=== PATIENT | female | born 1940 | race Caucasian/White ===

== ENCOUNTER 2020-03-25 11:18 | Outpatient (REF) | payer OTHER, SELFPAY ==
[2020-03-25 20:41] LABS: Abs Immature Grans 0.04 k/cumm (0.0-0.09); Absolute Lymphocyte Count 2.37 k/cumm (1.2-3.4); Basophils % 0.2; Eosinophils % 0.6; HCT 43.2 % (36.0-46.0); HGB 14.4 g/dL (12.0-15.5); Immature Grans % 0.3 %; Lymphocytes % 19.1; Mean Corp. HGB Concentration 33.3 g/dL (32.0-36.0); Mean Corpuscular Hemoglobin 29.6 pg (27.0-33.0); Mean Corpuscular Volume 88.9 fL (80-95); Mean Platelet Volume 10.3 fL (8.0-11.0); Monocytes % 9.8; Platelet Count 255 x1000/uL (130-400); RBC 4.86 m/cumm (4.00-5.20); RBC Distribution Width 14.4 % (11.7-14.6); White Blood Cell Count 12.41 k/cumm (4.4-10.8)
[2020-03-25 20:42] LABS: Absolute Basophil Count 0.02 k/cumm (0.0-0.2); Absolute Eosinophil Count 0.07 k/cumm (0.0-0.7); Absolute Monocyte Count 1.22 k/cumm (0.11-0.7); Absolute Neutrophil Count 8.69 k/cumm (1.2-6.7)
== END 2020-03-25 11:38 ==
LOC: NCHCN 11:18
PROVIDERS: PCP Internal Medicine; Visit Provider Nurse Practitioner Community Health
DX: K57.92 Diverticulitis of intestine, part unspecified, without perforation or abscess without bleeding (principal)
CPT/HCPCS: 85025

== ENCOUNTER 2020-04-24 09:27 | Outpatient (REF) | payer OTHER, SELFPAY ==
[2020-04-24 21:55] LABS: Anion Gap 7.8 mmol/L (3-11); BUN 20 mg/dL (7-18); CO2 30.2 mmol/L (21.0-32.0); CREATININE 0.75 mg/dL (0.55-1.02); Calcium 9.1 mg/dL (8.5-10.1); Calculated LDL 98 mg/dL (<100); Chloride 104 mmol/L (98-107); Cholesterol 184 mg/dL (<200); Glucose 91 mg/dL (74-106); HDL Cholesterol 67 mg/dL (40-60); Potassium 4.3 mmol/L (3.5-5.1); Sodium 142 mmol/L (136-145); Triglyceride 96 mg/dL (<150)
[2020-04-24 22:01] LABS: Hemoglobin A1C 6.2 % (3.8-5.6)
== END 2020-04-24 09:47 ==
LOC: NCHCN 09:27
PROVIDERS: PCP Internal Medicine; Visit Provider Internal Medicine
DX: I10 Essential (primary) hypertension (principal); E78.00 Pure hypercholesterolemia, unspecified
CPT/HCPCS: 80048; 80061; 83036

== ENCOUNTER 2020-05-01 12:32 | Outpatient (REF) | payer OTHER, SELFPAY | END 2020-05-01 12:52 | LOC: NCHCN 12:32 | PROVIDERS: PCP Internal Medicine; Visit Provider Internal Medicine | DX: M54.5 Low back pain (principal) | CPT/HCPCS: 87077; 87086; 87186 ==

== ENCOUNTER 2021-07-05 21:07 | Outpatient (REF) | payer OTHER, SELFPAY ==
[2021-07-05 22:08] LABS: Abs Immature Grans 0.03 10^3/uL (0.0-0.06); Absolute Basophil Count 0.09 10^3/uL (0.0-0.2); Absolute Eosinophil Count 0.17 10^3/uL (0.0-0.7); Absolute Lymphocyte Count 2.33 10^3/uL (1.2-3.4); Absolute Monocyte Count 0.64 10^3/uL (0.1-0.8); Absolute Neutrophil Count 4.79 10^3/uL (1.2-6.7); Basophils % 1.1; Eosinophils % 2.1; HCT 45.9 % (36.0-46.0); HGB 14.6 g/dL (11.2-15.7); Immature Grans % 0.4; Lymphocytes % 28.9; MCH 27.9 pg (27.0-33.0); MCHC 31.8 % (32.0-36.0); MCV 87.6 fL (80-95); MPV 10.5 fL (8.0-11.0); Neutrophils % 59.5; Nucleated RBC 0 %; Platelet Count 291 10^3/uL (130-400); RBC 5.24 10^6/uL (3.93-5.22); RDW 15.9 % (11.7-14.6); RDW-SD 51.2 fL; WBC 8.05 10^3/uL (4.4-10.8)
[2021-07-05 22:15] LABS: ESR 29 mm/hr (0-30)
[2021-07-05 22:24] LABS: ALT 17 U/L (14-59); AST 16 U/L (15-37); Albumin 3.5 g/dL (3.4-5.0); Alkaline Phosphatase 95 U/L (46-116); Anion Gap 9.4 mmol/L (3-11); BUN 14 mg/dL (7-18); Bilirubin, Total 0.3 mg/dL (0.2-1.0); C-Reactive Protein 0.22 mg/dL (0.0-0.3); CO2 25.6 mmol/L (21.0-32.0); CREATININE 0.7 mg/dL (0.55-1.02); Chloride 108 mmol/L (98-107); Creatine Kinase 36 U/L (26-192); Glucose 92 mg/dL (74-106); Potassium 4.2 mmol/L (3.5-5.1); Sodium 143 mmol/L (136-145); TSH (W/Ref FT4) 1.39 uIU/mL (0.36-3.74)
[2021-07-07 11:38] LABS: Lyme Ab w Rflx to Lyme Confirm Negative (Negative)
== END 2021-07-05 21:08 | disposition home or self-care (01) ==
LOC: NCHCN 21:07
PROVIDERS: PCP Internal Medicine; Visit Provider Internal Medicine
DX: M79.18 Myalgia, other site (principal)
CPT/HCPCS: 80053; 82550; 85652; 84443; 85025; 86140; 86618

== ENCOUNTER 2021-07-07 17:21 | Emergency (ER) | payer OTHER, SELFPAY ==
[2021-07-07] VITALS (31 sets, daily range): BP systolic 133–213; BP diastolic 67–99; PULSE 58–77; RESP 15–24; TEMP 36.6; O2SAT 90–98
--- NOTE | 2021-07-07 17:15 | RT.EKG_ITS ---
APPROVED REPORT Exam: Resting ECG Reason for Exam: chest pain Patient Location: E HR:71 bpm ECG Measurements Heart Rate 71 AXIS MS 180 P 62 QRSd 95 QRS -38 QT 409 T 15 QTc 445 Conclusion Sinus rhythm. Probable left ventricular hypertrophy No ST elevation
[2021-07-07] MEDS: Aspirin 81 MG CHEW 324 MG CH (17:42)
[2021-07-07] MEDS: Normal Saline 1,000 ML 125 ML IV (17:43)
[2021-07-07 17:44] LABS: Abs Immature Grans 0.02 10^3/uL (0.0-0.06); Absolute Basophil Count 0.07 10^3/uL (0.0-0.2); Absolute Eosinophil Count 0.26 10^3/uL (0.0-0.7); Absolute Lymphocyte Count 3.34 10^3/uL (1.2-3.4); Absolute Monocyte Count 0.66 10^3/uL (0.1-0.8); Absolute Neutrophil Count 3.88 10^3/uL (1.2-6.7); Basophils % 0.9; Eosinophils % 3.2; HCT 41.6 % (36.0-46.0); HGB 13.8 g/dL (11.2-15.7); Immature Grans % 0.2; Lymphocytes % 40.6; MCH 28.5 pg (27.0-33.0); MCHC 33.2 % (32.0-36.0); MPV 9.6 fL (8.0-11.0); Neutrophils % 47.1; Nucleated RBC 0 %; Platelet Count 293 10^3/uL (130-400); RBC 4.84 10^6/uL (3.93-5.22); RDW 15.6 % (11.7-14.6); RDW-SD 48.6 fL; WBC 8.23 10^3/uL (4.4-10.8)
[2021-07-07 17:51] LABS: Magnesium 2.3 mg/dL (1.8-2.4)
[2021-07-07 17:59] LABS: INR 0.9 (0.9-1.1); PTT Activated 24.6 sec (21.0-27.5); Prothrombin Time 9.5 sec (9.3-11.0)
[2021-07-07 18:04] LABS: ALT 17 U/L (14-59); AST 13 U/L (15-37); Albumin 3.4 g/dL (3.4-5.0); Alkaline Phosphatase 103 U/L (46-116); Anion Gap 9.6 mmol/L (3-11); BUN 17 mg/dL (7-18); Bilirubin, Total 0.3 mg/dL (0.2-1.0); CO2 26.4 mmol/L (21.0-32.0); CREATININE 0.8 mg/dL (0.55-1.02); Calcium 8.7 mg/dL (8.5-10.1); Chloride 104 mmol/L (98-107); Glucose 159 mg/dL (74-106); NT-proBNP 132 pg/mL (<300); Potassium 3.5 mmol/L (3.5-5.1); Sodium 140 mmol/L (136-145)
[2021-07-07 18:06] LABS: Troponin I < 0.05 ng/mL (<0.06)
--- NOTE | 2021-07-07 18:40 | DI.RAD_ITS ---
Exam(s) XR PORTABLE CHEST AP EXAM: XR PORTABLE CHEST AP CLINICAL HISTORY: chest pain. TECHNIQUE: 2D digital imaging was performed. COMPARISON: No exams were available for comparison FINDINGS: Heart size is normal. The mediastinum is not widened. Exaggerated interstitial, more so in the right lung. No Shanon B lines. No pleural effusions. No p neumothorax. No fractures evident. IMPRESSION: Increased interstitial markings throughout the right lung. No pleural effusions. DATA REPOSITORY: RADIATION DOSE DELIVERED: All CT scans at this facility use at least one of these dose optimization techniques: automated exposure control; mA and/or kV adjustment per patient size (includes targeted e xams where dose is matched to clinical indication); or iterative reconstruction.
[2021-07-07 18:44] LABS: D-Dimer 2290 ng/mlFEU (<500)
--- NOTE | 2021-07-07 18:45 | DI.CT_ITS ---
Exam(s) CT CHEST PE CTA EXAM: CT CHEST PE CTA CLINICAL HISTORY: R sided CP with elevated dimer. TECHNIQUE: Imaging Protocol: CT angiography of the chest was performed using pulmonary embolus radha col. Multi planar reconstructions were performed. CONTRAST MATERIAL: Intravenous: Omnipaque 350 Contrast volume: 100 cc COMPARISON: CR,XR XR PORTABLE CHEST AP from 07/07/2021 CR,XR XR PORTABLE CHEST AP from 07/07/2021 FINDINGS: CHEST: PULMONARY ARTERIES: There are no intraluminal filling defects to suggest acute pulmonary emboli. LUNGS: There is prominence of interstitial markings bilaterally also some scar-like density in the le ft lower lobe. Mild ground-glass infiltrate in the right lower lobe. No pleural effusions. There i s no pneumothorax. There are no obvious focal abnormalities evident in the trachea and mainstem bron chi.. There are no pleural effusions. MEDIASTINUM: There is no hilar nor mediastinal adenopathy. Visualized thyroid unremarkable. CARDIAC: Heart size is upper normal. There is no pericardial effusion.Caliber of the thoracic aorta is within normal limits. Aberrant right subclavian arteries noted. However, there is significant ath erosclerotic disease in this vessel medially by a in the esophagus. There is no significant shift of the interventricular septum. PARTIALLY VISUALIZED UPPERMOST ABDOMEN: Moderate-large hiatal hernia. Right adrenal gland unremarkab le. Slight thickening of the genu of the left adrenal gland noted. OSSEOUS: No significant osseous lesions.Indentation of the inferior endplate of what appears to be T1 0 noted, age indeterminate.. IMPRESSION: 1. No evidence of acute pulmonary emboli. No evidence of pulmonary infarction.No pleural effusions. 2. Increased interstitial markings in the lung [place] bilaterally. Mild ground-glass infiltrate in t he right lower lobe. Possibly an element of CHF although heart size is not appear obviously prominen t.. Close follow-up recommended. 3. Aberrant right subclavian artery noted. However, this artery is significant involving the atheros clerotic involvement behind esophagus what appears to be significant stenosis in vessel as it crosses the midline to attain the right side. RADIATION DOSE DELIVERED: 325.39mGy.cm Total DLP DATA REPOSITORY: All CT scans at this facility are submitted to the National Radiology Data Registry (NRDR) Dose Index Registry (DIR) with the [employer] (ACR). RADIATION OPTIMIZATION: All CT scans at this facility use at least one of these dose optimization te chniques: automated exposure control; mA and/or kV adjustment per patient size (includes targeted exa ms where dose is matched to clinical indication); or iterative reconstruction.
--- NOTE | 2021-07-07 18:58 | DI.VRAD_ITS ---
PROCEDURE INFORMATION: Exam: XR Chest Exam date and time: 07/07/2021 5:36 PM Age: 80 years old Clinical indication: Chest wall pain TECHNIQUE: Imaging protocol: XR of the chest. Views: 1 view. COMPARISON: No relevant prior studies available. FINDINGS: Lungs: Subtle interstitial prominence. Pleural spaces: Unremarkable. No pleural effusion. No pneumothorax. Heart/Mediastinum: Unremarkable. No cardiomegaly. Bones/joints: Unremarkable. IMPRESSION: Subtle interstitial prominence may be artifactual, but raises the question of edema Dictated and Authenticated by: Christopher Dickerson MD. Ordering:DEJON Gómez MD
--- NOTE | 2021-07-07 20:15 | RT.EKG_ITS ---
APPROVED REPORT Exam: Resting ECG Reason for Exam: chest pain Patient Location: E HR:60 bpm ECG Measurements Heart Rate 60 AXIS ME 190 P 65 QRSd 92 QRS -39 QT 448 T -54 QTc 448 Conclusion Sinus rhythm...normal P axis, V-rate 60- 99 Probable LVH with secondary repol abnrm...multiple LVH criteria, t wave inversions simiar to previous
--- NOTE | 2021-07-07 20:21 | ED.GENADUL_ITS ---
Discharge Plan Disposition Patient Disposition: HOME Condition: Stable Discharge Details Clinical Impression: Chest pressure Primary Care Provider: Radha Perez ED Provider: Rico Garcia Home Meds and New Rx's Prescriptions: Continued simvastatin 10 mg Tablet 10 mg PO QHS RF: 0 valacyclovir [Valtrex] 500 mg Tablet 500 mg PO BID PRNRF: 0 aspirin 81 mg Tablet,Delayed Release (Dr/Ec) 81 mg PO DAILY RF: 0 fluticasone propionate 50 mcg/actuation [place],Suspension 1 spray INTRANASAL BID RF: 0 rosuvastatin 40 mg Tablet 40 mg PO DAILY RF: 0 Discharge Instructions Instructions: Chest Pain (ED) Additional Instructions: At this time your laboratory values and CT imaging do not reveal any obvious emergent process. Admission was offered but declined. I recommend going home and taking [id number] Tylenol, cool and/or warm compresses every 2 hours for 20 minutes. Please contact your primary care provider tomorrow to discuss your ER visit and need for outpatient reevaluation. You stated to me that you are a DNR-DNI but if you would like to pursue your discomfort further you may need to be evaluated by a specialist, have outpatient stress test and/or echocardiogram, etc. Discharge Data Discharge Date/Time-TO BE ENTERED AT DEPARTURE: 07/07/21 21:51 Medical Decision Making This is an 80-year-old female past medical history of VA x2, hyperlipidemia, presenting to the ER complaining of right-sided chest pressure that began around 2 PM today while at rest. Her reports that she has had bilateral shoulder, back, pain intermittently over the past several months has been seen in multiple ERs. Clinically she appears well, nontoxic, initial blood pressure is 213/96 but she denies any headache, visual changes, history of hypertension. She does have some right-sided chest wall reproducible discomfort. Unfortunately she is a rather vague and poor historian, initially told me she had no pressure currently and then later told me that it has never gone away. Differential is wide, includes but not excluded to ACS, PE, costochondritis, pneumonia, dissection, Covid, etc. She took a single aspirin today, will give additional 3 baby aspirin and after initial EKG is performed will trial nitro to see if that makes any difference. Will initiate a cardiac rule out work-up including D-dimer. Prior to administration of any nitro her repeat blood pressure was 175/88. Patient was then given a nitro and initially reported to her RN that it seemed to help her symptoms, told me it made no change whatsoever. Subsequently given 2 additional nitro, she reports no change in her symptoms. Blood pressure now 157/84. Initial laboratory values reveal a D-dimer of 2290, otherwise unremarkable, troponin less than 0.05 and given she had initially told me she had some shortness of breath or difficulty with full inspiration, BNP was obtained and 132. Chest x-ray was already obtained, given the elevated D-dimer and will obtain a CTA. Patient is currently resting comfortably, tells me that she feels better. Chest CTA reveals mild pulmonary edema otherwise unremarkable for emergent process. Awaiting repeat troponin and EKG. Given her age and comorbidities I discussed admitting her to our facility for further cardiac observation. Given her vague presentation, it is truly difficult to assess whether or not the nitro had any true change in her chest pressure. Patient tells me that she is a DNR-DNI, would prefer to be discharged home if her repeat troponin and EKG are unremarkable. She plans to contact her primary care provider tomorrow to discuss her ongoing symptoms and need for outpatient reevaluation. We did also discuss her elevated blood pressure here in the ER and the need to monitor this carefully as she may require hypertension medications. Repeat EKG performed at 2032, please see official report by Dr. Gaffney. Sinus rhythm, ventricular rate of 60, LVH, no STEMI. No dynamic changes when compared to initial EKG Repeat troponin unchanged, remains less than 0.05. Patient reports that she is asymptomatic. Repeat blood pressure 133/67. We once again discussed admission but she would rather be discharged home. No additional questions or concerns. is comfortable taking her home in her current condition. Standard discharge and return precautions given. This documentation was generated using [employer] system, please disregard any oddities of phrase or misspellings. Medical Records Medical records reviewed: Yes I reviewed the patient's medical records. Imaging Data Radiologic Study: Attestation: I personally reviewed and interpreted this imaging study as follows: Imaging: X-Ray Radiologist's impression: PROCEDURE INFORMATION: Exam: XR Chest Exam date and time: 07/07/2021 5:36 PM Age: 80 years old Clinical indication: Chest wall pain TECHNIQUE: Imaging protocol: XR of the chest. Views: 1 view. COMPARISON: No relevant prior studies available. FINDINGS: Lungs: Subtle interstitial prominence. Pleural spaces: Unremarkable. No pleural effusion. No pneumothorax. Heart/Mediastinum: Unremarkable. No cardiomegaly. Bones/joints: Unremarkable. IMPRESSION: Subtle interstitial prominence may be artifactual, but raises the question of edema Radiologic Study #2: Attestation: I personally reviewed and interpreted this imaging study as follows: Imaging: CT Scan Radiologist's impression: PROCEDURE INFORMATION: Exam: CTA Chest With Contrast Exam date and time: 07/07/2021 6:52 PM Age: 80 years old Clinical indication: Other: R sided cp with elevated dimer TECHNIQUE: Imaging protocol: Computed tomographic angiography of the chest with contrast. 3D rendering (Not supervised by radiologist): MIP and/or 3D reconstructed images were created by the technologist. Radiation optimization: All CT scans at this facility use at least one of these dose optimization techniques: automated exposure control; mA and/or kV adjustment per patient size (includes targeted exams where dose is matched to clinical indication); or iterative reconstruction. Contrast material: OMNIPAQUE 350; Contrast volume: 100 ml; Contrast route: INTRAVENOUS (IV); COMPARISON: CR XR PORTABLE CHEST AP 07/07/2021 6:31 PM FINDINGS: Pulmonary arteries: No evidence of pulmonary embolus to the segmental level. Aorta/arteries: Unremarkable. No aortic aneurysm. No aortic dissection. Aberrant right subclavian. Irregular plaque. Lungs: Diffuse interstitial prominence seen compatible with edema. Diffuse bronchial wall thickening seen compatible with edema or bronchitis. Pleural spaces: Unremarkable. No pneumothorax. No pleural effusion. Heart: Coronary artery calcifications. Mediastinal space: Moderate hiatal hernia. Esophageal wall thickening noted. Clinical correlation recommended. Lymph nodes: Unremarkable. No enlarged lymph nodes. ADDIE SELBY Preliminary Radiology Report INSURANCE SALES ASSOCIATE (QA) DISCREPANCY? If there is a discrepancy between the preliminary and final interpretation, please notify [facility] via [email or web address]. If you do not have access to our QA portal, call our QA team at [phone] CONFIDENTIALITY STATEMENT This report is intended only for the use of the referring physician, and only in accordance with law, If you received this in error, call [phone] Page 2 of 2 Bones/joints: Unremarkable. No acute fracture. Soft tissues: Unremarkable. Other findings: IMPRESSION: 1. No evidence of pulmonary embolus 2. Findings compatible with mild pulmonary edema 3. Additional bronchial wall thickening compatible with bronchitis Lab Data Lab results reviewed: Yes I reviewed the patient's lab results. Labs: Laboratory Tests Range/Units 07/07/21 07/07/21 07/07/21 17:35 17:35 17:35 WBC (4.4-10.8) 10^3/uL 8.23 RBC (3.93-5.22) 10^6/uL 4.84 Hgb (11.2-15.7) g/dL 13.8 Hct (36.0-46.0) % 41.6 MCV (80-95) fL 86.0 MCH (27.0-33.0) pg 28.5 MCHC (32.0-36.0) % 33.2 RDW (11.7-14.6) % 15.6 H Plt Count (130-400) 10^3/uL 293 MPV (8.0-11.0) fL 9.6 Immature Gran % 0.2 Neutrophils % 47.1 Lymphocytes % 40.6 Monocytes % 8.0 Eosinophils % 3.2 Basophils % 0.9 Nucleated RBC % % 0 Absolute Neutrophils (1.2-6.7) 10^3/uL 3.88 Absolute Lymphocytes (1.2-3.4) 10^3/uL 3.34 Absolute Monocytes (0.1-0.8) 10^3/uL 0.66 Absolute Eosinophils (0.0-0.7) 10^3/uL 0.26 Absolute Basophils (0.0-0.2) 10^3/uL 0.07 PT (9.3-11.0) sec INR (0.9-1.1) APTT (21.0-27.5) sec D-Dimer (<500) ng/mlFEU Sodium (136-145) mmol/L 140 Potassium (3.5-5.1) mmol/L 3.5 Chloride (98-107) mmol/L 104 Carbon Dioxide (21.0-32.0) mmol/L 26.4 Anion Gap (3-11) mmol/L 9.6 BUN (7-18) mg/dL 17 Creatinine (0.55-1.02) mg/dL 0.8 Estimated GFR/1.73 m2 (mL/min/1.73m2) >= 60.00 Glucose (74-106) mg/dL 159 H Calcium (8.5-10.1) mg/dL 8.7 Magnesium (1.8-2.4) mg/dL 2.3 Total Bilirubin (0.2-1.0) mg/dL 0.3 AST (15-37) U/L 13 L ALT (14-59) U/L 17 Alkaline Phosphatase (46-116) U/L 103 Troponin I (<0.06) ng/mL < 0.05 NT-Pro-B Natriuret Pep (<300) pg/mL 132 Total Protein (6.4-8.2) g/dL 7.0 Albumin (3.4-5.0) g/dL 3.4 Range/Units 07/07/21 07/07/21 17:35 19:58 WBC (4.4-10.8) 10^3/uL RBC (3.93-5.22) 10^6/uL Hgb (11.2-15.7) g/dL Hct (36.0-46.0) % MCV (80-95) fL MCH (27.0-33.0) pg MCHC (32.0-36.0) % RDW (11.7-14.6) % Plt Count (130-400) 10^3/uL MPV (8.0-11.0) fL Immature Gran % Neutrophils % Lymphocytes % Monocytes % Eosinophils % Basophils % Nucleated RBC % % Absolute Neutrophils (1.2-6.7) 10^3/uL Absolute Lymphocytes (1.2-3.4) 10^3/uL Absolute Monocytes (0.1-0.8) 10^3/uL Absolute Eosinophils (0.0-0.7) 10^3/uL Absolute Basophils (0.0-0.2) 10^3/uL PT (9.3-11.0) sec 9.5 INR (0.9-1.1) 0.9 APTT (21.0-27.5) sec 24.6 D-Dimer (<500) ng/mlFEU 2290 H Sodium (136-145) mmol/L Potassium (3.5-5.1) mmol/L Chloride (98-107) mmol/L Carbon Dioxide (21.0-32.0) mmol/L Anion Gap (3-11) mmol/L BUN (7-18) mg/dL Creatinine (0.55-1.02) mg/dL Estimated GFR/1.73 m2 (mL/min/1.73m2) Glucose (74-106) mg/dL Calcium (8.5-10.1) mg/dL Magnesium (1.8-2.4) mg/dL Total Bilirubin (0.2-1.0) mg/dL AST (15-37) U/L ALT (14-59) U/L Alkaline Phosphatase (46-116) U/L Troponin I (<0.06) ng/mL < 0.05 NT-Pro-B Natriuret Pep (<300) pg/mL Total Protein (6.4-8.2) g/dL Albumin (3.4-5.0) g/dL ECG Data Attestation: I personally reviewed and interpreted this ECG (s) as follows: Interpretation: Please see official report by Dr. Gaffney. Sinus rhythm, v entricular rate of 71, left ventricular hypertrophy, no STEMI HPI General Mode of arrival: ambulatory . Date/Time Provider Initiated Documentation: 07/07/21 17:34 . Limitations to Documentation: no limitations . Information obtained by: patient and family . 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 She states that it began while at rest. Unfortunately she is rather vague and poor historian and initially tells me that all the pressure has resolved upon arrival but then later tells her that she still has mild to moderate pressure. She states the pressure does not radiate anywhere and denies any true pain. She first told me that it felt as though she was unable to take a full breath but later denies any difficulty breathing or shortness of breath. She denies recent illness or trauma, fever, headache, cough, back pain, abdominal pain, nausea, vomiting, change in bowel or bladder function, numbness, tingling, weakness, skin rash. She did take her baby aspirin today as she always does. I was able to also speak with the patient's who was present in the exam room, he reports that she has been having similar symptoms over the past 3-4 months has been seen in multiple ERs for which he tells me pain in her shoulders bilaterally, back pain, etc. Patient states that this does not feel like her previous VA. Related Data Home Medications Medication Instructions Recorded Confirmed aspirin 81 mg PO DAILY 07/07/21 07/07/21 fluticasone propionate 1 spray INTRANASAL BID 07/07/21 07/07/21 rosuvastatin 40 mg PO DAILY 07/07/21 07/07/21 simvastatin 10 mg PO QHS 07/07/21 07/07/21 valacyclovir [Valtrex] 500 mg PO BID PRN 07/07/21 07/07/21 Allergies Allergy/AdvReac Type Severity Reaction Status Date / Time latex Allergy Intermediate Unverified 07/07/21 19:05 General Stated Complaint: Chest Pain TRUNG: 2 Review of Systems Constitutional Constitutional: Denies fatigue, Denies fever(s) and Denies headache(s) Eyes Eyes: Denies change in vision ENT Ears, Nose, Mouth, and Throat: Denies headache(s) Cardiovascular Cardiovascular: Reports chest pain (Pressure) and Denies dyspnea Respiratory Respiratory: Denies cough and Denies dyspnea Gastrointestinal Gastrointestinal: Denies abdominal pain, Denies nausea and Denies vomiting Genitourinary Genitourinary: Denies dysuria Musculoskeletal Musculoskeletal: Denies back pain Integumentary/Breasts Skin/Breast: Denies rash Neurologic Neurologic: Denies headache(s) Endocrine Endocrine: Denies fatigue Hematologic/Lymphatic Hematologic/Lymphatic: Denies easy bleeding and Denies easy bruising [facility] Social History Smoking/Tobacco Use Status: Former Tobacco Use Smoking risk assessment performed?: Yes Alcohol Intake: never Substance use type: does not use Do you feel safe at home: Yes Exam Const General: cooperative, healthy appearing, comfortable and no acute distress Orientation: alert, awake and oriented x3 HENMT Head: normal to inspection, normocephalic and atraumatic Face and sinus: normal facial exam Mouth: moist mucous membranes Throat: posterior oropharynx normal Eyes General: appearance normal, both eyes and all related structures Conjunctivae: conjunctivae normal Neck Neck: normal visual inspection, full ROM, trachea midline and supple Chest Chest: normal inspection of the chest and tenderness (Diffuse mild right-sided) Resp Effort & Inspection: normal respiratory effort and able to speak in complete sentences Auscultation: clear to auscultation bilaterally Cardio Rate: regular rate Rhythm: regular rhythm GI Palpation: soft, not firm, no guarding, no pulsatile masses and nontender Back/Spine/Pelvis Back: no CVA tenderness and No back tenderness Skin General skin exam: no rashes or lesions noted Neuro General: patient alert, patient awake, moves all extremities and no focal motor deficits Cognition: normal cognition Speech: speech normal Gait: normal gait Motor: muscle tone normal throughout and strength 5/5 throughout Sensory Exam: no sensory deficits noted Extrem General: normal to inspection, full ROM, capillary refill normal, no pedal edema and no calf tenderness Psych Appearance: grossly normal Mental Status: mental status grossly normal Course Vital Signs Vital signs: Vital Signs Temperature 36.6 C 07/07/21 17:29 Pulse 71 07/07/21 17:29 Respiratory Rate 19 07/07/21 17:29 Blood Pressure 213/96 H 07/07/21 17:29 Pulse Oximetry 96 07/07/21 17:29 Temperature 36.6 C 07/07/21 17:29 Temperature Source Skin 07/07/21 17:29 Pulse 61 07/07/21 19:31 Pulse 63 07/07/21 19:40 Respiratory Rate 15 07/07/21 19:40 Respiratory Effort Non-Labored 07/07/21 17:50 Respiratory Depth Normal 07/07/21 17:50 Respiratory Pattern Normal 07/07/21 17:50 Blood Pressure 159/75 H 07/07/21 19:31 Blood Pressure Mean 95 07/07/21 19:31 Blood Pressure Position Supine 07/07/21 17:29 Pulse Oximetry 93 07/07/21 19:40 Oxygen Delivery Method Room Air 07/07/21 17:29 Oxygen Flow Rate 0 07/07/21 17:29 Pain Level 7 07/07/21 19:42 Lab/Test Results Lab/Test Results: Laboratory Tests Range/Units 07/07/21 07/07/21 07/07/21 17:35 17:35 17:35 WBC (4.4-10.8) 10^3/uL 8.23 RBC (3.93-5.22) 10^6/uL 4.84 Hgb (11.2-15.7) g/dL 13.8 Hct (36.0-46.0) % 41.6 MCV (80-95) fL 86.0 MCH (27.0-33.0) pg 28.5 MCHC (32.0-36.0) % 33.2 RDW (11.7-14.6) % 15.6 H Plt Count (130-400) 10^3/uL 293 MPV (8.0-11.0) fL 9.6 Immature Gran % 0.2 Neutrophils % 47.1 Lymphocytes % 40.6 Monocytes % 8.0 Eosinophils % 3.2 Basophils % 0.9 Nucleated RBC % % 0 Absolute Neutrophils (1.2-6.7) 10^3/uL 3.88 Absolute Lymphocytes (1.2-3.4) 10^3/uL 3.34 Absolute Monocytes (0.1-0.8) 10^3/uL 0.66 Absolute Eosinophils (0.0-0.7) 10^3/uL 0.26 Absolute Basophils (0.0-0.2) 10^3/uL 0.07 PT (9.3-11.0) sec INR (0.9-1.1) APTT (21.0-27.5) sec D-Dimer (<500) ng/mlFEU Sodium (136-145) mmol/L 140 Potassium (3.5-5.1) mmol/L 3.5 Chloride (98-107) mmol/L 104 Carbon Dioxide (21.0-32.0) mmol/L 26.4 Anion Gap (3-11) mmol/L 9.6 BUN (7-18) mg/dL 17 Creatinine (0.55-1.02) mg/dL 0.8 Estimated GFR/1.73 m2 (mL/min/1.73m2) >= 60.00 Glucose (74-106) mg/dL 159 H Calcium (8.5-10.1) mg/dL 8.7 Magnesium (1.8-2.4) mg/dL 2.3 Total Bilirubin (0.2-1.0) mg/dL 0.3 AST (15-37) U/L 13 L ALT (14-59) U/L 17 Alkaline Phosphatase (46-116) U/L 103 Troponin I (<0.06) ng/mL < 0.05 NT-Pro-B Natriuret Pep (<300) pg/mL 132 Total Protein (6.4-8.2) g/dL 7.0 Albumin (3.4-5.0) g/dL 3.4 Range/Units 07/07/21 17:35 WBC (4.4-10.8) 10^3/uL RBC (3.93-5.22) 10^6/uL Hgb (11.2-15.7) g/dL Hct (36.0-46.0) % MCV (80-95) fL MCH (27.0-33.0) pg MCHC (32.0-36.0) % RDW (11.7-14.6) % Plt Count (130-400) 10^3/uL MPV (8.0-11.0) fL Immature Gran % Neutrophils % Lymphocytes % Monocytes % Eosinophils % Basophils % Nucleated RBC % % Absolute Neutrophils (1.2-6.7) 10^3/uL Absolute Lymphocytes (1.2-3.4) 10^3/uL Absolute Monocytes (0.1-0.8) 10^3/uL Absolute Eosinophils (0.0-0.7) 10^3/uL Absolute Basophils (0.0-0.2) 10^3/uL PT (9.3-11.0) sec 9.5 INR (0.9-1.1) 0.9 APTT (21.0-27.5) sec 24.6 D-Dimer (<500) ng/mlFEU 2290 H Sodium (136-145) mmol/L Potassium (3.5-5.1) mmol/L Chloride (98-107) mmol/L Carbon Dioxide (21.0-32.0) mmol/L Anion Gap (3-11) mmol/L BUN (7-18) mg/dL Creatinine (0.55-1.02) mg/dL Estimated GFR/1.73 m2 (mL/min/1.73m2) Glucose (74-106) mg/dL Calcium (8.5-10.1) mg/dL Magnesium (1.8-2.4) mg/dL Total Bilirubin (0.2-1.0) mg/dL AST (15-37) U/L ALT (14-59) U/L Alkaline Phosphatase (46-116) U/L Troponin I (<0.06) ng/mL NT-Pro-B Natriuret Pep (<300) pg/mL Total Protein (6.4-8.2) g/dL Albumin (3.4-5.0) g/dL
--- NOTE | 2021-07-07 20:31 | DI.VRAD_ITS ---
PROCEDURE INFORMATION: Exam: CTA Chest With Contrast Exam date and time: 07/07/2021 6:52 PM Age: 80 years old Clinical indication: Other: R sided cp with elevated dimer TECHNIQUE: Imaging protocol: Computed tomographic angiography of the chest with contrast. 3D rendering (Not supervised by radiologist): MIP and/or 3D reconstructed images were created by the technologist. Radiation optimization: All CT scans at this facility use at least one of these dose optimization techniques: automated exposure control; mA and/or kV adjustment per patient size (includes targeted exams where dose is matched to clinical indication); or iterative reconstruction. Contrast material: OMNIPAQUE 350; Contrast volume: 100 ml; Contrast route: INTRAVENOUS (IV); COMPARISON: CR XR PORTABLE CHEST AP 07/07/2021 6:31 PM FINDINGS: Pulmonary arteries: No evidence of pulmonary embolus to the segmental level. Aorta/arteries: Unremarkable. No aortic aneurysm. No aortic dissection. Aberrant right subclavian. Irregular plaque. Lungs: Diffuse interstitial prominence seen compatible with edema. Diffuse bronchial wall thickening seen compatible with edema or bronchitis. Pleural spaces: Unremarkable. No pneumothorax. No pleural effusion. Heart: Coronary artery calcifications. Mediastinal space: Moderate hiatal hernia. Esophageal wall thickening noted. Clinical correlation recommended. Lymph nodes: Unremarkable. No enlarged lymph nodes. Bones/joints: Unremarkable. No acute fracture. Soft tissues: Unremarkable. Other findings: IMPRESSION: 1. No evidence of pulmonary embolus 2. Findings compatible with mild pulmonary edema 3. Additional bronchial wall thickening compatible with bronchitis Dictated and Authenticated by: Christopher Dickerson MD. Ordering:DEJON Gómez MD
[2021-07-07 20:32] LABS: Troponin I < 0.05 ng/mL (<0.06)
[2021-07-08] MEDS: Omnipaque 350 MG/ML 100 ML BTL IJ (00:53)
[2021-07-08] MEDS: Normal Saline Flush 10 ML SYR IVP (00:54)
[2021-07-09 17:33] LABS: COVID-19 RT-PCR UVMMC Result Negative (Negative)
== END 2021-07-07 21:51 | disposition home or self-care (01) ==
PROVIDERS: Emergency Provider Physician Assistant; PCP Internal Medicine
DX: R07.89 Other chest pain (principal); R06.02 Shortness of breath; R79.1 Abnormal coagulation profile; I25.9 Chronic ischemic heart disease, unspecified; Z87.891 Personal history of nicotine dependence
CPT/HCPCS: 36415; 71275; 80053; 93005; 96360; 96361; 99285; U0003; 71045; 83735; 83880; 84484; 85025; 85379; 85610; 85730; 93010; 99284; J3490

== ENCOUNTER 2022-04-01 16:25 | Outpatient (REF) | payer MEDICARE, SELFPAY ==
--- NOTE | 2022-04-01 15:15 | SKI_PTH ---
PATIENT: Peg Gao LOC: [facility] U#:[id number] AGE/SX: 81/F ROOM: RE04/01/[address]: Abby Anand : 1940 BED: DIS: 04/01/2022 SPEC #: [id number] RECD: 04/04/22 12:01 STATUS: VAISHALI REManuel #: [id number] SUZANNE: 04/01/22 15:[address]: Abby Anand DEPT: Surgical Specimen RECD BY: Barb Mendoza ENTERED: 04/04/22 12:01 SP TYPE: GRACE OTHR DR: Radha Perez Tissues: 1 - SKIN BIOPSY(SHAVE/PUNCH) Procedures: SKIN LEVEL 4 Comments: [id number]
== END 2022-04-01 16:26 | disposition home or self-care (01) ==
LOC: NCHCN 16:25
PROVIDERS: PCP Internal Medicine; Visit Provider Registered Nurse
DX: L57.0 Actinic keratosis (principal)
CPT/HCPCS: 88305

== ENCOUNTER 2022-05-23 17:31 | Outpatient (REF) | payer MEDICARE, SELFPAY ==
--- OUTSIDE RECORDS SUMMARY | 2022-05-23 17:34 | XMS_ITS | Encounter Summary ---
:1940 Author Organization [facility] [place] [address] Care Team Providers Name Role Phone Radha Perez MD Primary Care Provider Encounter Details Date Type Department Care Team Description 11/01/2021 Telephone [place] [facility] [place] [address] Social History Tobacco Use Types Packs/Day Years Used Date Former Smoker Cigarettes 1 20 Smokeless Tobacco: Former User Q uit: 11/13/1982 Comments: quit 25 years ago Alcohol Use Standard Drinks/Week Comments Yes 0 (1 standard drink = 0.6 oz pure alcoho l) Occasionally Alcohol Habits Answer Date Recorded How often do you have a drink containing alcohol? Not asked How many drinks containing alcohol do you have on a Not aske d typical day when you are drinking? How often do you have six or more drinks on one occasion? No t asked Comment: Occasionally 09/17/2012 Sex Assigned at Date Recorded Not on file documented as of this encounter Miscellaneous Notes Telephone Encounter - Rachelle Singh - 11/01/2021 6:20 PM EST Called to book pt for FU with Lakshmi Tadeo, called twice and line disconnected - sent letter Return in about 1 month (around 09/20/2021). documented in this encounter Plan of Treatment Not on filedocumented as of this encounter Visit Diagnoses Not on filedocumented in this encounter Care Teams In Classroom Tutor Relationship Specialty Start Date End Date Radha Perez MD PCP - General General Internal Medicine 03/31/21 [address] [place] [address] documented as of this encounter
--- OUTSIDE RECORDS SUMMARY | 2022-05-23 17:34 | XMS_ITS | Encounter Summary ---
:1940 Author Organization [facility] [address] Care Team Providers Name Role Phone Radha Perez MD Primary Care Provider Encounter Details Date Type Department Care Team Description 08/27/2021 Notes Only Rheumatology at [facility] [place] Lucille Tadeo APRN [facility] [place] [address] RHEUMATOLOGY [phone] [place] [phone] (Wo rk) Social History Tobacco Use Types Packs/Day Years [...] on file documented as of this encounter Progress Notes Lucille Tadeo APRN - 08/27/2021 9:14 AM EDT Left VM with patient to see how she is doing and schedule f/u documented in this encounter Plan of Treatment Not on filedocumented as of this encounter Visit Diagnoses Not on filedocumented in this encounter Care Teams Hide House Supervisor Relationship Specialty Start Date End Date Radha Perez MD PCP - General General Internal Medicine 03/31/21 [address] [place] [address] documented as of this encounter
--- OUTSIDE RECORDS SUMMARY | 2022-05-23 17:34 | XMS_ITS | Encounter Summary ---
:1940 Author Organization [facility] [place] [address] Care Team Providers Name Role Phone Radha Perez MD Primary Care Provider Encounter Details Date Type Department Care Team Description 09/02/2021 Telephone Rheumatology at [facility] [place] Lucille Tadeo APRN [facility] [place] [address] RHEUMATOLOGY [phone] [place] [phone] (Wo rk) Social History Tobacco Use Types [...] this encounter Miscellaneous Notes Telephone Encounter - Lucille Tadeo APRN - 09/02/2021 10:35 AM EDT Spoke with peg today. She denies any Patient is currently on 10mg/d of prednisone and denies any visual changes, headache, fatigue or malaise, religious tenderness, scalp tenderness, trouble swallowing,muscle pain around the jaw or the tongue with eating or talking, pain/aches in upper arms/shoulders,especially with activity, difficulty raising arms above the head, pain/aches in the thighs/hips, especially with activity. She is still experiencing lower back/flank pain like she was experiencing whenshe was here last. She is seeing a spine doctor on Monday. I told her we will decrease her prednisone to 9mg/day starting tomorrow. I reminded her of the signsand symptoms to be aware of of PMR and GCA and to report these to me ISABEL and then increase her prednisone dose to previous. I told her we will taper her very slowly and repeat labs frequently since she is in [place] and I cannot see her. She agrees. I told her I would send over reoccuring (q month) lab orders to [facility] in [place], [place]. I'd like her to get these done in the next couple of days and she says she will try. I would like for her to get these done every month to monitor inflammatory markers. She understands this. Patient needs to have DEXA scan done as well. She still has or tianna for this from last visit. She verbalizes understanding. House number in [place] [phone] documented in this encounter Plan of Treatment Scheduled Orders Name Type Priority Associated Diagnoses Order S chedule CRP, acute inflammation Lab Routine PMR (polymyalgia Every four weeks for 12 rheumatica) Occurrences sta rting 09/02/2021 unti l 09/02/2022 Sedimentation rate Lab Routine PMR (polymyalgia Every four weeks for 12 rheumatica) Occurrences sta rting 09/02/2021 unti l 09/02/2022 documented as of this encounter Visit Diagnoses Diagnosis PMR (polymyalgia rheumatica) Polymyalgia rheumatica manager intermediate current use of systemic steroi ds Encounter for long-term (current) use of steroids documented in this encounter Care Teams Atg Java Developer Relationship Specialty Start Date End Date Radha Perez MD PCP - General General Internal Medicine 03/31/21 [address] [place] [address] documented as of this encounter
--- OUTSIDE RECORDS SUMMARY | 2022-05-23 17:34 | XMS_ITS | Encounter Summary ---
:1940 Author Organization [facility] [place] [address] Care Team Providers Name Role Phone Radha Perez MD Primary Care Provider Encounter Details Date Type Department Care Team Description 08/27/2021 Telephone Rheumatology at [facility] [place] Lucille Tadeo APRN [facility] [place] [address] RHEUMATOLOGY [phone] [place] [phone] (Wo rk) Social History Tobacco Use Types [...] on file documented as of this encounter Plan of Treatment Not on filedocumented as of this encounter Visit Diagnoses Not on filedocumented in this encounter Care Teams Filter Press Operator Relationship Specialty Start Date End Date Radha Perez MD PCP - General General Internal Medicine 03/31/21 [address] [place] [address] documented as of this encounter
--- OUTSIDE RECORDS SUMMARY | 2022-05-23 17:34 | XMS_ITS | Clinical Summary ---
:1940 Author Organization [facility] [place] [address] Care Team Providers Name Role Phone Radha Perez MD Primary Care Provider Allergies Active Allergy Reactions Severity Noted Date Comments Latex Rash Skins montemayor and becomes itchy. Medications Medication Sig Dispensed Refills Start Date End Date Status acetaminophen Take 2 tablets by 30 tablet 0 09/18/2012 Active (TYLENOL) 325 mg mouth every 6 tablet hours as needed for Pain and Fever. losartan (COZAAR) 100 0 02/17/2021 Active mg Tablet valACYclovir (Valtrex) 0 01/14/2021 Active 500 mg Tablet predniSONE (Deltasone) 3 tablets a day 90 tablet 11 07/16/2021 Active 5 mg for 1 week, then 2 TabletIndications: PMR tablets every day (polymyalgia thereafter rheumatica) Additional Information Patient taking differently: 1 mg, 3 tablets a day for 1 week, then 2 tablets every day thereafter, Reported on 08/20/2021 simvastatin (Zocor) 20 mg Tablet Take 20 mg by mouth daily. 0 07/26/2021 Active aspirin EC 81 mg Tablet, Delayed Take 81 mg by mouth daily. 0 Active Release (E.C.) Active Problems Problem Noted Date AAA (abdominal aortic aneurysm) 03/08/2011 Overview: 09/17/2012: Endovascular Repair of Abdomi nal Aortic Aneurysm using Bifurcated Endograft CAD (coronary artery disease) 11/10/2008 Overview: 2003: Sp RCA stent Former smoker 11/10/2008 Overview: Quit 1980 Hyperlipidemia 11/10/2008 Hypertension 11/10/2008 Bladder prolapse 11/10/2008 Overview: S/p surgical correction Status post partial hysterectomy 11/10/2008 Immunizations Name Administration Dates Next Due Influenza Vaccine, Whole 08/13/2008 Pneumococcal Polyvalent 23 11/13/2007 Social History Tobacco Use Types Packs/Day Years [...] Assigned at Date Recorded Not on file Last Filed Vital Signs Vital Sign Reading Time Taken Comments Blood Pressure 187/83 08/20/2021 3:00 PM EDT Pulse 70 08/20/2021 3:00 PM EDT Temperature 36.2 ??C (97.2 ??F) 08/20/2021 12:10 PM EDT Respiratory Rate 15 08/20/2021 3:00 PM EDT Oxygen Saturation 96% 08/20/2021 3:00 PM EDT Inhaled Oxygen Concentration - - Weight 67.6 kg (149 lb) 08/20/2021 12:10 PM EDT Height 154.9 cm (5' 1) 08/20/2021 10:57 AM EDT Body Mass Index 28.15 08/20/2021 10:57 AM EDT Plan of Treatment Health Maintenance Due Date Last Done Comments Covid-19 Vaccine (#1) 1945 Tdap adult 1959 Tetanus vaccine 1959 Zoster vaccine (1 of 2) 1990 Advance Directive 1995 Bone Density Scan 2005 Pneumoccocal Vaccine: 65+ (2 - PCV) 11/13/2008 11/13/2007 Influenza (Flu) vaccine (1 of 1 - Influenza standard 07/14/2022 08/13/2008 series) Medical Devices Implanted Type Area Crosstie Inspector Device Shelf Model / Identifier Expiration Serial / Date Lot Graft,Brigitte Aleman,[id number] ([id number]) ([employer]) - [id number] N/A: 04/17/2014 [id number] / Implanted: Qty: 1 on 09/17/2012 at [facility] Abdomen [id number] / [id number] Insurance Payer Benefit Plan / Subscriber ID Effective Dates Phone Addre ss Type Group AARP MANAGED AARP FORMERLY [facility] [id number] 2020-Erlin [phone] [address] [address] MEDICARE MANAGED [address] [place] [id number] Advance Directives Latest Code Status on File Code Status Date Activated Date Inactivated Comments Full Code 09/17/2012 8:51 PM 09/18/2012 12:35 PM Order Status: Initial Order Does patient have decision making capacity? Yes, Order is based on Patients wishes. Full Code 09/17/2012 11:58 AM 09/17/2012 8:49 PM Order Status: Initial Order Does patient have decision making capacity? Yes, Order is based on Patients wishes. Care Teams Coconut Boiler Relationship Specialty Start Date End Date Radha Perez MD PCP - General General Internal Medicine 03/31/21 [address] [place] [address]
--- OUTSIDE RECORDS SUMMARY | 2022-05-23 17:34 | XMS_ITS | Encounter Summary ---
:1940 Author Organization [facility] [place] [address] Care Team Providers Name Role Phone Radha Perez MD Primary Care Provider Reason for Visit Reason Comments Flank Pain Encounter Details Date Type Department Care Team Description 08/20/2021 Emergency Emergency Department Ari Coy MD Upper abdominal pain; [facility] Constip ation, unspecified constipation type [facility] [place] [address] [place] [address] [phone] Social History Tobacco Use Types Packs/Day Years [...] on file documented as of this encounter Last Filed Vital Signs Vital Sign Reading Time Taken Comments Blood Pressure 187/83 08/20/2021 3:00 PM EDT Pulse 70 08/20/2021 3:00 PM EDT Temperature 36.2 ??C (97.2 ??F) 08/20/2021 12:10 PM EDT Respiratory Rate 15 08/20/2021 3:00 PM EDT Oxygen Saturation 96% 08/20/2021 3:00 PM EDT Inhaled Oxygen Concentration - - Weight 67.6 kg (149 lb) 08/20/2021 12:10 PM EDT Height - - Body Mass Index 28.15 08/20/2021 10:57 AM EDT documented in this encounter Discharge Instructions Discharge InstructionsMagui Sorenson MD - 08/20/2021 3:49 PM EDT You were seen in the [facility] Emergency Department for abdominal pain. Your blood and urine tests did not show evidence of infection or other issues. We also obtained a CT scan of your abdomen which did not show any life- threatening issues. To help treat your constipation we gave you a suppository. We recommend taking Magnesium Citrate, which is an oral solution to help treat constipation. You can pick this up [id number] at any drugstore. Please return to the ED or call 911 if you develop any worsened pain, have any bloody stools, lose consciousness, chest pain, or if you have any other new or concerning symptoms. AttachmentsThe following attachments cannot be sent through Care Everywhere. Constipation (Telugu)documented in this encounter Medications at Time of Discharge Medication Sig Dispensed Refills Start Date End Date simvastatin (Zocor) 20 mg Take 20 mg by mouth 0 0 07/26/2021 Tablet daily. aspirin EC 81 mg Tablet, Take 81 mg by mouth 0 Delayed Release (E.C.) daily. predniSONE (Deltasone) 5 3 tablets a day for 1 90 tablet 11 07/16/2021 mg TabletIndications: PMR week, then 2 tablets (polymyalgia rheumatica) every day thereafter losartan (COZAAR) 100 mg 0 02/17/2021 Tablet valACYclovir (Valtrex) 0 01/14/2021 500 mg Tablet acetaminophen (TYLENOL) Take 2 tablets by 30 tablet 0 09/18 325 mg tablet mouth every 6 hours as needed for Pain and Fever. documented as of this encounter Progress Notes Mayra Herrera PT - 08/20/2021 2:52 PM EDT Geriatric ED Physical Therapy Screening Pt seen at bedside for brief screening as part of the Geriatric Emergency Department Initiative. This justowriter operator introduced self and role, pt agreeable to screening. Reason for Presentation this Date: abdominal pain and constipation. How Presented this Date: Pt supine on a stretcher in NAD and with spouse present when therapist arrived. Home Setup and Other people in the Home: Pt lives with her spouse, does not have any concerns about managing at home. Baseline Mobility including Device: Independent with mobility, ADLs and IADLs, no device Patient Mobility Concerns upon Presentation: abdominal pain has made it difficult to get OOB today Is pt currently NPO?: no diet orders specified in chart Is patient mobilizing to bathroom for toileting? If not, recommended plan?: yes, pt has ambulated to/from the bathroom with slow but steady gait per nursing staff Recommend Formal PT Assessment as part of today's ED Assessment: no, unless abdominal pain does not improve. PT Remains available for any skilled needs. 10 minutes spent in contact with patient. Mayra Herrera PT DPT Pager #[phone] Inpatient Physical Therapy documented in this encounter ED Notes Mikel Jones RN - 08/20/2021 2:26 PM EDT Ambulated to bathroom with slow but steady gait. Magui Sorenson MD - 08/20/2021 12:39 PM EDT ED Resident Note HPI: Peg Gao is a 80 y.o. female w/ PMH s/f AAA s/p EVAR, CAD, HLD, HTN, who presents to the Emergency Department with right flank pain. History obtained from patient at the bedside. Patient reports usual state of health until five days ago, when she developed pain on her right flank. The pain is constant, and does not radiate. The pain is worse with movement. Not meal associated. The pain developed gradually, and is progressively gotten worse. She notes that she has not been able to have a bowel movement in five days. She has tried MiraLAX. No history of appendectomy or cholecystectomy. No chest pain, nausea, vomiting, fever, shortness of breath, dysuria, hematuria, bloody stool, diarrhea, numbness, tingling, weakness, lightheadedness, syncope. Pt was seen under the supervision of an attending physician. Review of Systems Pertinent positives and negatives are included in the HPI, otherwise at least ten systems were reviewed and negative. Past Medical and Surgical Histories, Social History, Medications, Allergies were reviewed in the chart. Vitals: ED Triage Vitals [08/20/21 1210] BP: 174/87 Heart Rate: 71 Resp: 18 Temp: 36.2 ??C (97.2 ??F) Temp src: Oral SpO2: 97 % O2 Device: RA O2 Flow Rate (L/min): n/a Physical Exam Vitals and nursing note reviewed. Constitutional: General: She is not in acute distress. HENT: Head: Normocephalic. Eyes: Extraocular Movements: Extraocular movements intact. Pupils: Pupils are equal, round, and reactive to light. Cardiovascular: Rate and Rhythm: Normal rate and regular rhythm. Pulses: Normal pulses. Heart sounds: Normal heart sounds. Pulmonary: Effort: Pulmonary effort is normal. No respiratory distress. Breath sounds: Normal breath sounds. Abdominal: Palpations: Abdomen is soft. Tenderness: There is abdominal tenderness (right upper quadrant). There is right CVA tenderness. There is no left CVA tenderness, guarding or rebound. Genitourinary: Comments: No stool palpated in rectal vault. No gross blood. Musculoskeletal: General: Normal range of motion. Cervical back: Normal range of motion and neck supple. Right lower leg: No edema. Left lower leg: No edema. Skin: General: Skin is warm and dry. Neurological: General: No focal deficit present. Mental Status: She is alert and oriented to person, place, and time. Mental status is at baseline. Psychiatric: Mood and Affect: Mood normal. Behavior: Behavior normal. ED Course: I have reviewed labs and imaging, images and available reports, and they are significant for: Labs Reviewed BASIC METABOLIC PANEL (NON-FASTING) - Abnormal; Notable for the following components: Result Value Creatinine 0.59 (*) All other components within normal limits HEMOGRAM - Abnormal; Notable for the following components: RDWSD 48.9 (*) RDWCV 15.7 (*) All other components within normal limits CBC (WITH DIFF) LIPASE HEPATIC FUNCTION PANEL DIFFERENTIAL, AUTOMATED BLUE TUBE HOLD GOLD TUBE HOLD URINALYSIS WITH REFLEX CULTURE CT Abdomen & Pelvis w Contrast Final Result 1. No acute abdominopelvic pathology detected. 2. Dependent changes at the lung bases. 3. Mild prominence of the right renal collecting system and the extrarenal pelvis without nephroureterolithiasis or evidence of an obstructing mass. Thank you for letting us participate in the care of this patient. If you are a health care provider and have any questions regarding this report, please contact the number below. For patients who have questions please contact the health health care sanitary technician that requested your imaging first. Course as of 08/21/21 0948 MonAug 20, [address] Abdomen & Pelvis w Contrast 1. No acute abdominopelvic pathology detected. 2. Dependent changes at the lung bases. 3. Mild prominence of the right renal collecting system and the extrarenal pelvis without nephroureterolithiasis or evidence of an obstructing mass. [address]. Interval decrease in the size of the newtok aneurysm sac, currently 3.5 cm compared to 4.7 cm previously. No evidence of an endoleak. Assessment and Plan: Peg Gao is a 80 y.o. female w/ PMH s/f AAA s/p EVAR, CAD, HLD, HTN, who presents to the Emergency Department with right flank pain. Vitals notable for hypertension. On exam, patient without peritoneal signs, tenderness in the right upper quadrant and right flank. Labs including CBC, BMP, LFTs, lipase, UA all normal. Obtained CT abdomen pelvis which was protocoled to evaluate aorta-no acute findings, and aneurysm has decreased in size from 4.7 cm in 2011 to 3.5 cm today. No endoleak noted. No evidence of stone in urinary tract. Considered hepatobiliary pathology, however LFTs are normal and no evidence on CT abdomen and pelvis. Considered pancreatitis however negative lipase. Considered pyelonephritis or nephrolithiasis however urinalysis and imaging do not support this. Considered vascular pathology, however no evidence on protocoled CT. No evidence of bowel obstruction or other acute, emergent causes of abdominal pain. Patient given 1L of LR, Tylenol, Dulcolax suppository. No bowel movement during ED course. Recommended patient try magnesium citrate at home. The visit findings, diagnosis, and care plan were discussed with the patient. The diagnosis and care plans discussions were outlined in the discharge instructions. The patient expressed understanding of the details of the visit, the return precautions and that she should return to the ER at any time for worsening symptoms, new symptoms, or other concerns. she agrees with the follow- up plan. Magui Sorenson MD Resident 08/21/21 0948 Associated attestation - Ari Coy MD - 08/21/2021 11:42 AM EDT ED ATTENDING ATTESTATION NOTE The patient was seen in conjunction with the resident physician. I have independently performed the rubi portions of the history and physical exam. I have reviewed the nursing notes, vital signs, and all diagnostic studies personally including labs, imaging studies and EKGs. I have discussed the details of the case with the resident and agree with the assessment and plan as described in the resident note unless noted otherwise. Brief Summary: 80-year-old female brought in by for 5-day of constipation 3-day history of abdominal pain return right upper quadrant/flank. Patient has a history of abdominal aneurysm. She denies nausea, vomiting, fevers, chills, urinary complaints. On exam she is nontoxic but moderately tende r in the right upper quadrant greater than right flank. No rash. Labs are unremarkable, but given her age and tenderness CT scan was obtained which was negative for any acute intra-abdominal process. She was given Dulcolax without success. Final Assessment: Abdominal pain and constipation. No evidence of localized bacterial infection, acute surgical process, or other emergent etiology at this time. Recommended treatment for constipation with low threshold to return. Haydee Ward RN - 08/20/2021 11:52 AM EDT ED RN brief outside phone call note: Peg Gao is a 80 y.o. who I was called about from Rheumatology clinic. The patient will be evaluated in the Emergency Department for abdominal pain and constipation. Brief Summary: Pt with h/o EVAR in 2011. [facility] with c/o abdominal pain and constipation x 5 days. Guarding, VSS. documented in this encounter Miscellaneous Notes ED Triage - Paulie Mclean RN - 08/20/2021 12:14 PM EDT Pt arrives by wheelchair reporting R flank pain radiating to RUQ, no PMH of Kidney stones, constipated x5 days. OTC Rx Not working Pt speaking in clear, logical and full sentences. Respiratory rate regular and unlabored. Skin appropriate color, warm and dry. Alert & oriented x4 documented in this encounter Plan of Treatment Not on filedocumented as of this encounter Procedures Procedure Name Priority Date/Time Associated Comments Diagnosis CT ABDOMEN AND STAT 08/20/2021 2:44 PM Results for this PELVIS W CONTRAST EDT procedure are in the results section. URINALYSIS WITH STAT 08/20/2021 2:29 PM Result s for this REFLEX CULTURE EDT procedure are in the results section. HEMOGRAM STAT 08/20/2021 1:30 PM Results f or this EDT procedure are i n the results section. DIFFERENTIAL, STAT 08/20/2021 1:30 PM Results for this AUTOMATED EDT procedure are i n the results section. GOLD TUBE HOLD STAT 08/20/2021 1:30 PM Results for this EDT procedure are i n the results section. BLUE TUBE HOLD STAT 08/20/2021 1:30 PM Results for this EDT procedure are i n the results section. HC CBC,PLT & AUTO STAT 08/20/2021 1:30 PM DIFF EDT HC LIPASE STAT 08/20/2021 1:30 PM Results f or this EDT procedure are i n the results section. HEPATIC FUNCTION STAT 08/20/2021 1:30 PM Resul ts for this PANEL EDT procedure are i n the results section. BASIC METABOLIC STAT 08/20/2021 1:30 PM Result s for this PANEL (NON-FASTING) EDT procedur e are in the results section. documented in this encounter Results CT Abdomen & Pelvis w Contrast (08/20/2021 2:44 PM EDT) Anatomical Region Laterality Modality Abdomen, Pelvis Computed Tomography Specimen (Source) Anatomical Collection Method Collection Time Re ceived Time Location / / Volume Laterality 08/20/2021 3:00 PM EDT Impressions 08/20/2021 3:06 PM EDT 1. ??No acute abdominopelvic pathology d etected. 2. ??Dependent changes at the lung bases . 3. ??Mild prominence of the right renal collecting system and the extrarenal pelvis without nephroureterolithiasis or evidence of an obstructing mass. Thank you for letting us participate in the care of this patient. ??If you are a health care provider and have any questi ons regarding this report, please contact the number below. ??For patients who have questions please contact the health health care sanitary technician that requested your imaging first. ? Narrative 08/20/2021 3:06 PM EDT EXAMINATION: CT ABDOMEN AND PELVIS W CONTRAST CLINICAL HISTORY: RUQ abdominal pain, in itial exam 80F w/ hx AAA, nephrolithiasis, h/w righ t flank pain x 5 days, constant TECHNIQUE: Helical CT of the abdomen and pelvis was performed following the intravenous administration of contrast. Administered 78.0 ml of OMNIPAQUE 350.00 mg/ml. Oral contrast was administered. COMPARISON: January 29, 2013 FINDINGS: Lower chest: Dependent changes with the platelike atelectasis at the left base and mosaic attenuation. No pericardial o r pleural effusion. Moderately sized hiatal hernia. Liver: Normal size and attenuation witho ut lesions. Bile ducts: Nondilated. Gallbladder: No calcified gallstones. No rmal caliber wall. Pancreas: Normal attenuation without jaquelin delvis dilatation. Spleen: Normal. Adrenals: Normal. Kidneys: Mild prominence of the right re nal collecting system and the extrarenal pelvis without renal or collecting syste m calcifications or an obvious obstructing mass. Urinary Bladder: Normal. Vasculature: Aortobiiliac stent in place . Interval decrease in the size of the newtok aneurysm sac, currently 3.5 cm co mpared to 4.7 cm previously. No evidence of an endoleak. Lymph Nodes: No enlarged lymph nodes. Bowel: Nondilated, no wall thickening. M oderate volume formed stool in the cecum and the transverse colon. Scattered sigm oid diverticula. No evidence of acute diverticulitis. Peritoneum and mesentery: No ascites, fr ee air, or loculated fluid collection. No mesenteric inflammation. Abdominal wall: Normal. Reproductive organs: Absent uterus. No a dnexal masses. Osseous structures: No suspicious lesion s. Procedure Note Maxime Agosto MD - 08/20/2021For matting of this note might be different from the original. EXAMINATION: CT ABDOMEN AND PELVIS W CON TRAST CLINICAL HISTORY: RUQ abdominal pain, in itial exam 80F w/ hx AAA, nephrolithiasis, h/w righ t flank pain x 5 days, constant TECHNIQUE: Helical CT of the abdomen and pelvis was performed following the intravenous administration of contrast. Administered 78.0 ml of OMNIPAQUE 350.00 mg/ml. Oral contrast was administered. COMPARISON: January 29, 2013 FINDINGS: Lower chest: Dependent changes with the platelike atelectasis at the left base and mosaic attenuation. No pericardial o r pleural effusion. Moderately sized hiatal hernia. Liver: Normal size and attenuation witho ut lesions. Bile ducts: Nondilated. Gallbladder: No calcified gallstones. No rmal caliber wall. Pancreas: Normal attenuation without jaquelin delvis dilatation. Spleen: Normal. Adrenals: Normal. Kidneys: Mild prominence of the right re nal collecting system and the extrarenal pelvis without renal or collecting syste m calcifications or an obvious obstructing mass. Urinary Bladder: Normal. Vasculature: Aortobiiliac stent in place . Interval decrease in the size of the newtok aneurysm sac, currently 3.5 cm co mpared to 4.7 cm previously. No evidence of an endoleak. Lymph Nodes: No enlarged lymph nodes. Bowel: Nondilated, no wall thickening. M oderate volume formed stool in the cecum and the transverse colon. Scattered sigm oid diverticula. No evidence of acute diverticulitis. Peritoneum and mesentery: No ascites, fr ee air, or loculated fluid collection. No mesenteric inflammation. Abdominal wall: Normal. Reproductive organs: Absent uterus. No a dnexal masses. Osseous structures: No suspicious lesion s. IMPRESSION 1. No acute abdominopelvic pathology det ected. 2. Dependent changes at the lung bases. 3. Mild prominence of the right renal co llecting system and the extrarenal pelvis without nephroureterolithiasis or evidence of an obstructing mass. Thank you for letting us participate in the care of this patient. If you are a health care provider and have any questi ons regarding this report, please contact the number below. For patients w ho have questions please contact the health health care sanitary technician that requested your imaging first. Ari Coy MD IMG CT ORDERABLES Urinalysis with reflex Culture (08/20/2021 2:29 PM EDT) [facility] Method Time Signature Glucose UA Negative Negative [facility] mg/dL [facility] Protein UA Negative Negative [facility] mg/dL [facility] Bilirubin UA Negative Negative [facility] mg/dL [facility] Comment: Clinical correlation required for positi ve Urine Bilirubin results as false positive may occur with some drugs and d rug related products. If a false positive is suspected a serum total bili gr should be considered if clinically indicated. Urobilinogen UA Normal Normal mg/dL [facility] pH UA 7.0 5.0 - 8.0 [facility] Blood UA Negative Negative mg/dL [facility] Ketones UA Negative Negative mg/dL [facility] Nitrite UA Negative Negative [facility] Leukocytes UA Negative Negative [facility] Appearance UA Clear Clear [facility] Spec [place] UA 1.007 1.005 - 1.030 [facility] Color UA Yellow Yellow [facility] Culture Reflexed No [facility] Specimen Anatomical Collection Method Collection Time Receive d Time (Source) Location / / Volume Laterality Urine 08/20/2021 2:29 PM 2:41 EDT PM EDT Resulting Agency Comment Spec In Lab Ari Coy MD URINE ORDERABLES Performing Organization Address City/[facility]/ZIP Code Phon e Number [address] Gold Tube HOLD (08/20/2021 1:30 PM EDT) P athologist Signature Gold Hold Sample in [facility] LABOR[facility] Specimen Anatomical Collection Method Collection Time Receive d Time (Source) Location / / Volume Laterality Blood Venous Draw / 08/20/2021 1:30 PM 08/20/20 21 1:39 Unknown EDT PM EDT Magui Ogden MD CHEMISTRY ORDERABLES Performing Organization Address City/[facility]/ZIP Code Phon e Number [address] Blue Tube HOLD (08/20/2021 1:30 PM EDT) P athologist Signature Blue Hold Sample in [facility] LABOR[facility]ORY Specimen Anatomical Collection Method Collection Time Receive d Time (Source) Location / / Volume Laterality Blood Venous Draw / 08/20/2021 1:30 PM 08/20/20 21 1:39 Unknown EDT PM EDT Magui Ogden MD HEMATOLOGY ORDERABLES Performing Organization Address City/[facility]/ZIP Code Phon e Number [address] Differential, Automated (08/20/2021 1:30 PM EDT) P athologist Signature Neutrophils % 58.5 % [facility] Neutr Abs (ANC) 4.37 1.70 - [facility] 6.10 [facility] x10(3)/[facility] Lymphocytes % 31.0 % [facility] Lymphocytes Abs 2.3 0.9 - 3.2 [facility] x10(3)/[facility] LABORATORY Monocytes % 7.9 % [facility] Monocyte Abs 0.6 0.3 - 0.9 [facility] x10(3)/[facility] LABORATORY Eosinophils % 1.6 % [facility] Eosinophils Abs 0.1 0.0 - 0.4 [facility] x10(3)/[facility] LABORATORY Basophils % 0.9 % [facility] Basophils Abs 0.1 0.0 - 0.1 [facility] x10(3)/[facility] LABORATORY Immature Gran % 0.10 % [facility] Comment: Immature granulocytes(IG's)percentage an d absolute count will include metamyelocytes, myelocytes, and promyelo cytes. Blood smears from CBCs yielding IG's will be scanned manually for concor dance. If this scan disagrees with the automated IG or if promyelocytes are not ed, a manual differential will be performed. Apple Gran Abs 0.01 0.00 - 0.04 x10(3)/[facility] Specimen Anatomical Collection Method Collection Time Receive d Time (Source) Location / / Volume Laterality Blood 08/20/2021 1:30 PM 1:38 EDT PM EDT Resulting Agency Comment Spec In Lab Magui Ogden MD HEMATOLOGY ORDERABLES Performing Organization Address City/State/[place] [address] (ABNORMAL) Hemogram (08/20/2021 1:30 PM EDT) Analysis Performed At Patho logist Time Signature WBC 7.5 4.0 - 9.5 [facility] x10(3)/[facility] LABORATORY RBC 5.20 4.00 - [place] 5.21 [facility] x10(6)/[facility] LABORATORY Hemoglobin 14.8 11.7 - [place] 15.5 g/dL [facility] Hematocrit 44.6 35.7 - [place] 45.8 % [facility] MCV 85.8 82.6 - [place] 94.4 [facility]ORATORY MCH 28.5 27.1 - [place] 32.0 pg [facility] MCHC 33.2 31.7 - [place] 35.0 g/dL [facility] Platelets 293 145 - 357 [facility] x10(3)/[facility] LABORATORY RDWSD 48.9 (H) 37.0 - [place] 46.0 [facility] LABORATORY RDWCV 15.7 (H) 11.5 - [facility] [place] 14.1 % [facility] MPV 9.6 7.6 - 12.9 [facility] fL [facility] nRBC % Auto 0.0 % [facility] nRBC Abs Auto 0.000 0.000 - [place] 0.000 [facility] x10(3)/[facility] LABORATORY Specimen Anatomical Collection Method Collection Time Receive d Time (Source) Location / / Volume Laterality Blood 08/20/2021 1:30 PM 1:38 EDT PM EDT Resulting Agency Comment Spec In Lab Magui Ogden MD HEMATOLOGY ORDERABLES Performing Organization Address City/State/[place] [address] Hepatic Function Panel (08/20/2021 1:30 PM EDT) P athologist Signature Total Protein 6.9 6.1 - 8.0 [place] g/dL [facility] Albumin 4.1 3.2 - 5.2 [place] g/dL [facility] AST 13 0 - 30 [place] unit/L [facility] ALT 12 0 - 30 [place] [place] unit/L [facility] Alk Phos 88 35 - 105 [facility] unit/L [facility] Total 0.2 0.2 - 1.3 [place] Bilirubin mg/dL [facility] Bili, Direct <0.1 0.0 - 0.3 [facility] Specimen Anatomical Collection Method Collection Time Receive d Time (Source) Location / / Volume Laterality Blood 08/20/2021 1:30 PM 1 1:38 EDT PM EDT Resulting Agency Comment Spec In Lab Ari Coy MD CHEMISTRY ORDERABLES Performing Organization Address City/[facility]/ZIP Code Phon e Number [address] Lipase (08/20/2021 1:30 PM EDT) athologist Signature Lipase 17 0 - 60 [facility] unit/L [facility] Specimen Anatomical Collection Method Collection Time Receive d Time (Source) Location / / Volume Laterality Blood 08/20/2021 1:30 PM 1 1:38 EDT PM EDT Resulting Agency Comment Spec In Lab Ari Coy MD CHEMISTRY ORDERABLES Performing Organization Address City/[facility]/[place] [address] (ABNORMAL) Basic Metabolic Panel (non-fasting) (08/20/2021 1:30 PM EDT) athologist Signature Glucose Lvl 92 65 - 199 [facility] mg/dL [facility] Comment: Diabetes: >=200 mg/dL plus symp toms BUN 10 8 - 18 mg/dL [facility] Creatinine 0.59 (L) 0.70 - 1.20 mg/dL [facility] Sodium 139 135 - 145 mmol/L [facility] Potassium 4.0 3.5 - 5.0 mmol/L [facility] Comment: Please note: ??Patients with WBC >100,00 0 may have falsely elevated Potassium levels. ??For accurate Potassium quantif ication in these patients send serum separator tube (gold top) for subsequent determinations. ??Contact the Clinical Chemistry Laboratory if there are any qu estions. Chloride 103 98 - 107 mmol/L [facility] CO2 26 22 - 31 mmol/L [facility] Anion Gap 10 5 - 15 mmol/L [facility] Calcium 9.2 8.5 - 10.5 mg/dL [facility] Estimated GFR 87 >=60 mL/min/1.73 m?? [facility] Comment: This patient? s estimated glomerular filtration rate (eGFR) is between 87 mL/min/1.73 m2 (patients with less muscl e mass) and 100 mL/min/1.73 m2 (patients with more muscle mass) as dete rmined by the CKD-EPI equation. Assessment of eGFR is not appropriate wh en creatinine concentrations are rapidly changing. For clinical decisions where creatinine clearance will affect therapy, a 24-hour urine creatinine kaylene fidel may be advised. Assignment of CKD stage 1 - 5 for patien ts with an eGFR near the transition point between stages may be based on cli nical assessment of muscle mass and symptoms in addition to eGFR. Specimen Anatomical Collection Method Collection Time Receive d Time (Source) Location / / Volume Laterality Blood 08/20/2021 1:30 PM 1:38 EDT PM EDT Resulting Agency Comment Spec In Lab Ari Coy MD CHEMISTRY ORDERABLES Performing Organization Address City/State/Z[place] [address] documented in this encounter Visit Diagnoses Diagnosis Upper abdominal pain Abdominal pain, other specified site Constipation, unspecified constipation t ype documented in this encounter Administered Medications Inactive Administered Medications - up to 3 most recent administrations Medication Order MAR Action Action Date Dose Rate Site acetaminophen (Tylenol) tablet Given 08/20/2021 2:13 PM EDT 1,00 0 mg 1,000 mg 1,000 mg, Oral, ONCE, 1 dose, On Mon08/20/21 at 1409, Maximum dose of acetaminophen is 4000 mg from all sources in 24 hours. When ordered for pain, acetaminophen should be given even when other ordered pain medications are indicated. , STAT bisacodyL (Dulcolax) suppository 10 mg Given 08/20/2021 3:19 PM EDT 10 mg 10 mg, Rectal, ONCE, 1 dose, On Mon08/20/21 at 1455, Routine iohexoL (Omnipaque) (350 mg/mL) injection Given 08/20/2021 2:44 PM EDT 78 mLs solution 0-200 mL 0-200 mL, Intravenous, ONCE PRN, 1 dose, Starting on Mon08/20/21 at 1444, Until Mon08/20/21 at 1444, Per Protocol, Warning Vesicant/Irritant Medication , Radiology Contrast, Routine lactated Ringers 1,000 mL IV Rate/Dose Change 08/20/2021 2:20 PM ED T 1000 mL/hr bolus at 2,000 mL/hr, Intravenous, ONCE, 1 dose, On Mon08/20/21 at 1301 New Bag 08/20/2021 1:21 PM EDT 2000 mL/hr documented in this encounter Active and Recently Administered Medications Times are shown in EDT. Scheduled Medication Order 08/18/2021 08/19/2021 08/20/2021 acetaminophen (Tylenol) tablet 1,000 mg (COMPLETED) 1413 (Given - Provider: Mikel Jones RN) 1,000 mg, Oral, ONCE, 1 dose, On 07/03 at 1409, Maximum dose of acetaminophen is 4000 mg from all sources in 24 hours. When ordered for pain, acetaminophen should be given even when other ordered pain medications are indicated. , STAT bisacodyL (Dulcolax) suppository 10 mg (COMPLETED) 1519 (Given - Provider: Mikel Jones RN) 10 mg, Rectal, ONCE, 1 dose, On Mon08/20/21 at 1455, Routine lactated Ringers 1,000 mL IV bolus (COMPLETED) 1321 (New Bag - Provider: Mikel Jones RN)1420 (Rate/Dose Change - Provider: Mikel Jones RN)1559 (Stopped - Provider: Yasmni Neville LPN) at 2,000 mL/hr, Intravenous, ONCE, 1 dose, On Mon08/20/21 at 130 1 PRN Medication Order 08/18/2021 08/19/2021 08/20/2021 iohexoL (Omnipaque) (350 mg/mL) injection solution 0-200 mL (COM PLETED) 1444 (Given - Provider: Mandi Hammonds) 0-200 mL, Intravenous, ONCE PRN, 1 dose, Starting on Mon08/20/21 at 1444, Until Mon08/20/21 at 1444, Per Protocol, Warning Vesicant/Irritant Medication , Radiology Contrast, Routine documented in this encounter Care Teams Commercial Project Manager Relationship Specialty Start Date End Date Radha Perez MD PCP - General General Internal Medicine 03/31/21 [address] [place] [address] documented as of this encounter
--- OUTSIDE RECORDS SUMMARY | 2022-05-23 17:34 | XMS_ITS | Encounter Summary ---
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 [place] [address] Referral ID Status Reason Start Date Expiration Date Visits V isits Requested Authorized [id number] Closed Consult, 09/16/2021 03/15/2022 1 1 Test & Treat Consultation (Routine) - Closed Specialty Diagnoses / Procedures Referred By Contact Refer red To Contact Diagnoses PMR (polymyalgia rheumatica) [place] [address] Referral ID Status Reason Start Date Expiration Date Visits V isits Requested Authorized [id number] Closed Consult, 09/16/2021 03/15/2022 1 1 Test & Treat Encounter Details Date Type Department Care Team Description 09/16/2021 Telephone Rheumatology [place] [facility] [address] [place] [address] RHEUMATOLOGY [phone] [place], [place] [address] (Wo rk) Social History Tobacco Use Types [...] Telephone Encounter - Lucille Tadeo APRN - 09/16/2021 1:49 PM EDT Left message with patient that I am referring her to an Rheum and powder coat painter in [place] since she will be there for 6 months. She already has dexa and vit D ordered, but as of last phone call she did not have these done. I have also not received any updated labs. documented in this encounter Plan of Treatment Scheduled Referrals Name Type Priority Associated Order Schedule Diagnoses Referral to Outpatient Referral Routine PMR (polymyalgia Orde red: Rheumatology rheumatica) 09/16/2021 Referral to Outpatient Referral Routine care home current Ord ered: Endocrinology use of systemic 09/16/2021 steroids documented as of this encounter Visit Diagnoses Diagnosis care home current use of systemic steroi ds Encounter for long-term (current) use of steroids PMR (polymyalgia rheumatica) Polymyalgia rheumatica documented in this encounter Care Teams Plastic Cnc Machine Operator Relationship Specialty Start Date End Date Radha Perez MD PCP - General General Internal Medicine 03/31/21 [address] [place] [address] documented as of this encounter
--- OUTSIDE RECORDS SUMMARY | 2022-05-23 17:34 | XMS_ITS | Encounter Summary ---
:1940 Author Organization [place] [address] Care Team Providers Name Role Phone Radha Perez MD Primary Care Provider Reason for Referral Diagnostic Test (Routine) - Authorized Specialty Diagnoses / Procedures Referred By Contact Refer red To Contact Radiology Diagnoses terminal carman current use of systemic steroids Lucille Tadeo, ANNIKA Procedures DXA Central Spine, Hip, and/or Whole Body (Generic) [facility] [address] [place] [id number] Referral ID Status Reason Start Expiration Visits Visits Date Date Requested Authorized [id number] Authorized Specialty 08/20/2021 02/18/2023 1 1 Service Requested Reason for Visit Reason Comments Follow-up Encounter Details Date Type Department Care Team Description 08/20/2021 Office Visit Rheumatology at [facility] Lucille Tadeo, PMR (polymyalgia rheumatica) ; [facility] HEAD OF HOUSEKEEPING terminal carman current use of systemic steroi ds; [facility] Generalized abdominal pain; [place] [address] [place] [address] Constipation, unspecified constipation t ype [phone] R[address] [place], [place] [address] Social History Tobacco Use Types Packs/Day Years [...] Sign Reading Time Taken Comments Blood Pressure 179/77 08/20/2021 10:57 AM EDT Pulse 74 08/20/2021 10:57 AM EDT Temperature 36.6 ??C (97.9 ??F) 08/20/2021 10:57 AM EDT Respiratory Rate 18 08/20/2021 10:57 AM EDT Oxygen Saturation 97% 08/20/2021 10:57 AM EDT Inhaled Oxygen Concentration - - Weight 66 kg (145 lb 8.1 oz) 08/20/2021 10:57 AM EDT Height 154.9 cm (5' 1) 08/20/2021 10:57 AM EDT Body Mass Index 27.49 08/20/2021 10:57 AM EDT documented in this encounter Patient Instructions Patient InstructionsLucille Tadeo APRN - 08/20/2021 11:00 AM EDT Continue 10mg/day prednisone dexa scan ordered documented in this encounter Progress Notes Lucille Tadeo APRN - 08/20/2021 11:00 AM EDT Rheumatology Progress Note Chief Complaint: Peg Gao is a 80 y.o. year old female seen as a follow up for PMR. RAYA from Dr. Gómez. Last appointment on 07/16/2021. History of Present Illness: Patient presents today with For follow-up of PMR. But, patient's only complaint today is constipation for 5 days and severe right mid back/flank pain for 5 days. She is unable to describe the pain. Thepain is worse when she is moving. She has not talked to her PCP about this. She has tried prunes, MiraLAX, and other stool softeners but with no success of a bowel movement. She states that she is not passing gas. She states that she is drinking water and eating normally. Patient has a PMH of ASCVD w/stenting, former smoker, hyperlipidemia, HTN, AAA, diverticulitis. Patient EVAR in 2011, and has not been evaluated by vascular since 2012. Patient's vital signs are stable but with some systolic hypertension. Last visit, Dr. Gómez's note mentioned Consider ultrasound to evaluate AAA size at some point in the next few months. It is unusual for polymyalgia rheumatica to affect the larger arteries but it may be considered worth of baseline profiling at this time. Maintain daily baby aspirin. Patient denies any nausea, syncope, dizziness Patient has been on prednisone 10 mg/day for about 4 weeks. Patient states that in regards to her PMR symptoms she is doing great. denies any visual changes, headache, fatigue or malaise, orthodox tenderness, scalp tenderness, trouble swallowing, muscle pain around the jaw or the tongue with eating or talking, pain/aches in upper arms/shoulders, especially with activity, difficulty raising arms above the head, pain/aches in the thighs/hips, especially with activity. Patient states knee pain is significantly better since last visit. Patient has never had a DEXA scan. Patient does not take vitamin D orcalcium, but takes a multivitamin. 07/16/2021 - CRP normal Patient has history of a murmur. Covid Vaccine Status: X2 moderna Rheumatic History (x) means positive Heart Failure Iritis Dactylitis Pleuritis Pericarditis Oral / Nasal Ulcers PE/DVT Spontaneous Discoid SLE STD Raynaud???s Psoriasis Seizures Anemia Leucopenia Thrombocytopenia Psychosis from a medical condition Interval History: ??? 07/16/2021 - Dr. Gómez - Gradual muscle and joint aching, involving her shoulders. Limits ability to wash/brush hair. Unsure exactly when this happened. Subacromial space injection in early March 2021 w/short benefit. Proximal muscles in hips and hip joints also involved and difficulty to go up stairsand rise from chair. No headache, vision change, jaw claudication, chest pain, or shortness of breath. Assessment/Plan: PMR, no GCA s/s. Prednisone taper, labs, AAA US consideration in next few months (unusual for polymyalgia rheumatica to affect the larger arteries but it may be considered worth of baseline profiling at this time). Maintain daily baby aspirin. ??? 07/05/2021 - PCP - proximal myalgias bilateral arms and legs. No benefit from injection. ??? 04/06/2021 - [facility] Ortho - minimal arthritic changes in her shoulders. She has pain and stiffness in her right shoulder that would be consistent with early adhesive capsulitis. try a fluoroscopy guided glenohumeral injection to see if this might provide better pain relief Failed Therapies: N/A ROS: General (-)fevers, (-)chills, (-)night sweats, (-)wt loss/gain, (-)fatigue Head and Neck (-)headache, (-)dizziness, (-)tinnitus, (-)epistaxis, (-)tender scalp or temporal area, (-)lymphadenopathy Mouth (-)dry mouth, (-)mouth ulcers, (-)jaw claudication Eyes (-)vision change, (-)dry eyes, (-)photosensitivity, (-)uveitis CVS (-)chest pain, (-)palpitations, (+)edema, +1 pitting bilateral ankles, (-)claudication Pulm (-)shortness of breath, (-)wheezes, (+)cough, yellow phlem for a while Hematologic (-)anemia, (-)bruising, (-)blood clots GI (-)nausea (-)vomiting, (+)constipation, see HPI, (+)abdominal pain, (- )hematochezia, (-)change inappetite, (+)reflux, history of, not increasing in frequency, (-)dysphagia (-)hematuria, (-)dysuria, (-)frequency MS (-)joint pain, (-) joint stiffness, (-)paralysis, (-)hx of arthritis Neuro (-) neuropathy, (-)numbness, (-)paresthesias, (-)weakness, (+)gait instability, due to pain Skin (-)Raynaud's,(-) ulcers, (-)rash, (-)fingernail changes Psych (-) depression, (-)anxiety, (-)sleep disturbances Problem List: Patient Active Problem List Diagnosis Date Noted ??? AAA (abdominal aortic aneurysm) 03/08/2011 ??? CAD (coronary artery disease) 11/10/2008 ??? Former smoker 11/10/2008 ??? Hyperlipidemia 11/10/2008 ??? Hypertension 11/10/2008 ??? Bladder prolapse 11/10/2008 ??? Status post partial hysterectomy 11/10/2008 Allergies: Allergies Allergen Reactions ??? Latex Rash Skins montemayor and becomes itchy. Past Medical History: Past Medical History: Diagnosis Date ??? AAA (abdominal aortic aneurysm) 03/08/2011 ??? Bladder prolapse 11/10/2008 ??? CAD (coronary artery disease) 11/10/2008 ??? Former smoker 11/10/2008 ??? Hyperlipidemia 11/10/2008 ??? Hypertension 11/10/2008 ??? Status post partial hysterectomy 11/10/2008 Past Surgical History: Past Surgical History: Procedure Laterality Date ??? PRG PLACEMENT EXTENSION PRGSTHESIS FOR ENDOVASC REPAIR AAA 09/17/2012 @PLACE EXT EVG INTRARENAL AORTIC\ILIAC ARTERY ANEURYSM, S&I performed by ANDREW JAMES at [facility] OR ??? PRO AAA REPAIR, 1ST VESSEL, EXTENSION PROSTH 09/17/2012 @EVG-PLACEMENT, CUFF OR EXT. AORTIC OR ILIAC ANEURYSM REPAIR, GORE performed by ANDREW JAMES at [facility] OR ??? PRO AAA REPAIR, MODULR BIFURCATED PROSTH 09/17/2012 @EVG, BIFURCATED MODULAR AORTIC, W ONE DOCKING LIMB, ANEURX performed by ANDREW JAMES at [facility] OR ??? PRO AAA REPR, EXPOSE FEMORAL ART, GROIN INCIS 09/17/2012 @EXPOSURE, OPEN FEM. ARTERY FOR ENDOVASCULAR PROSTHESIS, GROIN-ZOIE performed by ANDREW JAMES at [facility] OR ? ? PRO ENDOVASC REPAIR INFRARENAL AAA/DISSECTION S&I 09/17/2012 @EVG, INFRARENAL AAA OR DISSECTION, S&I performed by ANDREW JAMES at [facility] OR ??? XR FLUORO INJECTION DRAINAGE JOINT LG RIGHT Right 04/27/2021 XR Fluoro Guided Joint Injection Large Right 04/27/2021 Lucille Ferrer, HEAD OF HOUSEKEEPING [facility] RAD XRAY Family History: No family history on file. Autoimmune: Denies Arthritis: Denies CV: Denies DM: Denies Health Care Maintenance Date Next Due Influenza vaccine Pneumonia vaccine TB Screen (PPD/QGA) DXA N/A NOW HCQ Eye Exam Viral Hepatitis Screen Social History: Social History Socioeconomic History ??? Marital status: Spouse name: Not on file ??? Number of children: Not on file ??? Years of education: Not on file ??? Highest education level: Not on file Occupational History ??? Not on file Tobacco Use ??? Smoking status: Former Smoker Packs/day: 1.00 Years: 20.00 Pack years: 20.00 Types: Cigarettes ??? Smokeless tobacco: Former User Quit date: 11/13/1982 ??? Tobacco comment: quit 25 years ago Substance and Sexual Activity ??? Alcohol use: Yes Comment: Occasionally ??? Drug use: No ??? Sexual activity: Yes Partners: Male Other Topics Concern ??? Not on file Social History Narrative ??? Not on file Social Determinants of Health Financial Resource Strain: ??? Difficulty of Paying Living Expenses: Not on file Food Insecurity: ??? Worried About Running Out of Food in the Last Year: Not on file ??? Ran Out of Food in the Last Year: Not on file Transportation Needs: ??? Lack of Transportation (Medical): Not on file ??? Lack of Transportation (Non-Medical): Not on file Physical Activity: ??? Days of Exercise per Week: Not on file ??? Minutes of Exercise per Session: Not on file Housing Stability: ??? Unable to Pay for Housing in the Last Year: Not on file ??? Number of Places Lived in the Last Year: Not on file ??? Unstable Housing in the Last Year: Not on file Physical Exam BP 179/77 Pulse 74 Temp 36.6 ??C (97.9 ??F) (Temporal) Resp 18 Ht 154.9 cm (5' 1) Wt 66 kg (145 lb 8.1 oz) SpO2 97% BMI 27.49 kg/m?? Physical Exam: Gen: awake, alert and oriented x 3, in distress due to pain, worse with movement. well nourished Skin: warm and dry, no rheumatologic rashes. no nail bed abnormalities Head and Neck: no scalp or temporal tenderness, no cervical or submandibular adenopathy Eyes: normal sclerae, PERRL Heart: regular rate and rhythm, systolic ejection murmur at upper right sternal border, edema present, +1 pitting bilateral ankles. +2 radial and pedal pulses. Lungs: no signs of respiratory distress, lung sounds are diminished in bases bilaterally, no rales, ronchi, or wheezes Abdominal: soft, non-rigid. Guarding. Severe tender with light palpation. bowel sounds present in all quadrants MSK: patient is in increased pain when supine. Patient's right mid back/flank pain is severe with palpation. No skin abnormalities noted. Hand - no tenderness, swelling, or warmth. normal ROM. normal fist and claw Wrist - no tenderness, swelling, or warmth. normal ROM Shoulder - no tenderness, swelling, or warmth. normal ROM Neck - no tenderness, normal ROM Spine - no tenderness, normal ROM Hip - unable to perform exam due to patient's severe abdominal pain and right sided mid back/flank pain. Knee - no tenderness or warmth, mild swelling right, Unable to perform ROM exam due to pain. Ankle - no tenderness, normal ROM Feet - no tenderness, normal ROM Psych: appropriate mood and affect, but patient is noticeably in pain. good eye contact. answers questions appropriately Past Lab Studies: WBC Date Value Ref Range Status 07/16/2021 8.8 4.0 - 9.5 x10(3)/mcL Final RBC Date Value Ref Range Status 07/16/2021 5.12 4.00 - 5.21 x10(6)/mcL Final Hematocrit Date Value Ref Range Status 07/16/2021 44.2 35.7 - 45.8 % Final Hemoglobin Date Value Ref Range Status 07/16/2021 14.6 11.7 - 15.5 gm/dL Final MCV Date Value Ref Range Status 07/16/2021 86.3 82.6 - 94.4 fL Final MCH Date Value Ref Range Status 07/16/2021 28.5 27.1 - 32.0 pg Final Platelets Date Value Ref Range Status 07/16/2021 310 145 - 357 x10(3)/mcL Final Sodium Date Value Ref Range Status 07/16/2021 138 135 - 145 mmol/L Final Potassium Date Value Ref Range Status 07/16/2021 4.2 3.5 - 5.0 mmol/L Final Comment: Please note: Patients with WBC >100,000 may have falsely elevated Potassium levels. For accurate Potassium quantification in these patients send serum separator tube (gold top) for subsequent determinations. Contact the Clinical Chemistry Laboratory if there are any questions. Chloride Date Value Ref Range Status 07/16/2021 103 98 - 107 mmol/L Final CO2 Date Value Ref Range Status 07/16/2021 25 22 - 31 mmol/L Final Anion Gap Date Value Ref Range Status 07/16/2021 10 5 - 15 mmol/L Final BUN Date Value Ref Range Status 07/16/2021 15 8 - 18 mg/dL Final Creatinine Date Value Ref Range Status 07/16/2021 0.66 (L) 0.70 - 1.20 mg/dL Final Estimated GFR Date Value Ref Range Status 07/16/2021 83 >=60 mL/min/1.73 m?? Final Comment: This patient???s estimated glomerular filtration rate (eGFR) is between 83 mL/min/1.73 m2 (patients with less muscle mass) and 97 mL/min/1.73 m2 (patients with more muscle mass) as determined by the CKD-EPI equation. Assessment of eGFR is not appropriate when creatinine concentrations are rapidly changing. For clinical decisions where creatinine clearance will affect therapy, a 24-hour urine creatinine clearance may be advised. Assignment of CKD stage 1 - 5 for patients with an eGFR near the transition point between stages may be based on clinical assessment of muscle mass and symptoms in addition to eGFR. Glucose Lvl Date Value Ref Range Status 07/16/2021 100 65 - 199 mg/dL Final Comment: Diabetes: >=200 mg/dL plus symptoms Calcium Date Value Ref Range Status 07/16/2021 9.4 8.5 - 10.5 mg/dL Final Total Protein Date Value Ref Range Status 07/16/2021 7.1 6.1 - 8.0 gm/dL Final Albumin Date Value Ref Range Status 07/16/2021 4.2 3.2 - 5.2 gm/dL Final Alk Phos Date Value Ref Range Status 07/16/2021 95 35 - 105 unit/L Final ALT Date Value Ref Range Status 07/16/2021 12 0 - 30 unit/L Final AST Date Value Ref Range Status 07/16/2021 18 0 - 30 unit/L Final Chemistry Component Value Date/Time NA 138 07/16/2021 1245 K 4.2 07/16/2021 1245 CL 103 07/16/2021 1245 CO2 25 07/16/2021 1245 BUN 15 07/16/2021 1245 CREATININE 0.66 (L) 07/16/2021 1245 Component Value Date/Time CALCIUM 9.4 07/16/2021 1245 ALKPHOS 95 07/16/2021 1245 AST 18 07/16/2021 1245 ALT 12 07/16/2021 1245 BILITOT 0.3 07/16/2021 1245 Lab Results Component Value Date CRP <3.0 07/16/2021 Past Imagin04/06/2021 - xray shoulder left - IMPRESSION 1. No fracture or dislocation 2. Mild AC joint osteoarthropathy. Assessment/Plan: I discussed the following diagnoses in detail, including treatment options and patient agrees with the plan outlined below. 1. Abdominal pain, constipation - Patient is experiencing abdominal and back pain, as well as constipation for 5 days, all of which are severe. This is new for the patient (5 days ago). I consulted with Dr. Dolan about the patient's complaints and he was able to do a focused examination. She has history of EVAR in 2011 has not been evaluated by vascular since 2012. Vital signs are stable, but with some systolic hypertension. We discussed with the patient that the safest option, considering her pain and PMH, is to be evaluated in the emergency department now. I spoke with an ER nurse around 1150am and gave her report. We then called transportation and they wheeled the patient down in a wheelchair to the ER. 2. PMR- Patient is stable on prednisone 10mg/day. Patient agreed to not continue with the prednisonetaper until her abdominal and back pain is evaluated and better understood in the ER. The patient denies any s/s of PMR or GCA, but I do not want to taper her prednisone anymore until her chief complaint is worked up. Patient does state that she understands that she is to report any signs of symptoms of a flare, including any visual changes, headache, fatigue or malaise, orthodox tenderness, scalp tenderness, trouble swallowing, muscle pain around the jaw or the tongue with eating or talking, pain/aches in upper arms/shoulders, especially with activity, difficulty raising arms above the head, pain/aches in the thighs/hips, especially with activity. ?? Continue prednisone 10mg/day. ?? Report any signs or symptoms of a flare to me ISABEL and increase to previous dose. ?? Patient will need to be called for a f/u visit. I will call her next week to see how she is doing, then figure out follow up (about 1 month). Symptoms to Report: Visual changes Headache Fatigue or malaise Gnosticist tenderness Scalp tenderness Trouble swallowing Muscle pain around the jaw or the tongue with eating or talking Pain/aches in upper arms/shoulders, especially with activity Difficulty raising arms above the head Pain/aches in the thighs/hips, especially with activity 3. terminal carman use of systemic steroids - Given the patient's intended medical terminologist use of systemic steroids, I would like to prepare the patient to start fosamax 70mg/week. I was able to give the patient aprinted out order for a DEXA scan (she would like to get this done closer to home. She verbalizes understanding to ask the facility to send me the results), but until we understand better what is causing her severe pain, the preparation for fosamax is on hold. Once that is figured out and as long as no contraindications, I will resume preparation for fosamax (CMP - assess Cr Cl, vit D, and a DEXA scan). We briefly spoke about calcium and vit D supplements, but patient is unable to concentrate on anything but her pain. We will revisit this conversation at our next appointment. ?? Calcium intake 1200-1500mg/day (includes oral intake) ?? Vitamin D supplementation (at least 1000 units daily) or Ergocalciferol 50,000 unit/week ?? Dexa scan ordered and paper given to patient Orders Placed This Encounter Procedures ??? DXA Central Spine, Hip, and/or Whole Body (Generic) - Patient understand that if she experiences PMR or GCA s/s she should contact clinic or go to ER ifsymptoms continue or worsen. - After Visit Summary was not given to the patient due to transfer to ER, but it is provided via thepatient portal which she has access to. This patient was evaluated by me, then seen and discussed with Dr. Dolan 90 minutes was spent today in chart review, documentation, and [id number] visit. Minda Tadeo, MSN, HEAD OF HOUSEKEEPING, FEATHER RENOVATOR-C Rheumatology Department documented in this encounter Plan of Treatment Scheduled Orders Name Type Priority Associated Diagnoses Order S chedule DXA Central Spine, Imaging Routine terminal carman current use of Expected: 08/20/2021, Hip, and/or Whole Body systemic steroids Expires: 08/20/2022 (Generic) documented as of this encounter Visit Diagnoses Diagnosis PMR (polymyalgia rheumatica) Polymyalgia rheumatica terminal carman current use of systemic steroi ds Encounter for long-term (current) use of steroids Generalized abdominal pain Abdominal pain, generalized Constipation, unspecified constipation t ype documented in this encounter Care Teams Gear Cutting Machine Set Up Operator Relationship Specialty Start Date End Date Radha Perez MD PCP - General General Internal Medicine 03/31/21 [address] [place] [address] documented as of this encounter
--- OUTSIDE RECORDS SUMMARY | 2022-05-23 17:35 | XMS_ITS | Encounter Summary ---
:1940 Author Organization [facility] [place] [address] Care Team Providers Name Role Phone Unavailable Primary Care Provider Unavailable Encounter Details Date Type Department Care Team Description 08/28/2012 Orders Only Vascular Surgery at [facility], AAA (a bdominal aortic [facility] aneurysm) (Primary Dx) [place] [id number] Social History Tobacco Use Types Packs/Day Years Used Date Former Smoker Smokeless Tobacco: Never Used Comments: quit 25 years ago Alcohol Use Standard Drinks/Week Comments Not Asked 0 (1 standard drink = 0.6 oz pure alcoho l) Sex Assigned at Date Recorded Not on file documented as of this encounter Plan of Treatment Not on filedocumented as of this encounter Procedures Procedure Name Priority Date/Time Associated Diagnosis Comme nts EVG, BIFURCATED MODULAR Routine 08/28/2012 9:30 AM EDT AAA (ab dominal aortic AORTIC, W ONE DOCKING aneurysm) LIMB,ANEURX documented in this encounter Visit Diagnoses Diagnosis AAA (abdominal aortic aneurysm) - Primar y Abdominal aneurysm without mention of ru pture documented in this encounter
--- OUTSIDE RECORDS SUMMARY | 2022-05-23 17:35 | XMS_ITS | Encounter Summary ---
:1940 Author Organization [facility] [place] [address] Care Team Providers Name Role Phone Unavailable Primary Care Provider Unavailable Reason for Visit Reason Comments Aneurysm (Aortic) Encounter Details Date Type Department Care Team Description 03/08/2011 Office Visit Vascular Surgery at Rubin Genao MD AAA (abdominal aortic [facility] aneurysm) (Primary Dx) [facility] DR Bhakta VASCULAR SURGERY [place], [place] [id number] [phone] Social History Tobacco Use Types Packs/Day Years Used Date Former Smoker Smokeless Tobacco: Never Used Comments: quit 25 years ago Alcohol Use Standard Drinks/Week Comments Not Asked 0 (1 standard drink = 0.6 oz pure alcoho l) Sex Assigned at Date Recorded Not on file documented as of this encounter Last Filed Vital Signs Vital Sign Reading Time Taken Comments Blood Pressure 128/72 03/08/2011 8:00 AM EDT Pulse 64 03/08/2011 8:00 AM EDT Temperature - - Respiratory Rate - - Oxygen Saturation - - Inhaled Oxygen Concentration - - Weight - - Height - - Body Mass Index - - documented in this encounter Progress Notes Rubin Genao MD - 03/08/2011 8:37 AM EDT OUTPATIENT VASCULAR SURGERY CONSULTATION Reason for Visit: AAA History of Present Illness: Ms Gao presents for evaluation of a AAA. Followed for 3 years, now at 4.5-cm by CT scan report from [place] done in November. Denies symptoms of back abdominal or groin pain. She has a history of 2 prior IA. No current CP or SOB. Denies claudication Atherosclerotic Risk Factors: (n) DM (n) HTN (y) Hyperlipidemia (former) Tobacco Other Past Medical History/Risk Factors: (y) Previous IA (n) Angina (n) CHF (n) Arrythmia (n) COPD Review of Systems: Constitutional (weight change, fever) - Denies Neuro (dizziness, seizures, numbness, tingling) - Denies Eyes (vision) - Denies Ears, nose, throat (hearing) - Denies Cardiovascular (CP) - Denies Respiratory (SOB) - Denies GI (abd pain, nausea, emesis, blood in stool) - Denies (hematuria, dysuria, frequency) - Denies Muscoloskeletal (extremity pain, weakness) - Denies Skin (ulcers, rashes) - Denies Functional Status/Social Hx: Lives at home, Drives Car and Does His/Her Own Shopping, Denies TobaccoUse, Occasional EthOH Family Hx: Negative for Thrombosis, Bleeding Disorders Physical Exam: General - NAD, appears stated age Neuro - Alert and Oriented, Motor Sensory grossly intact Skin - No prominent markings or lesions Ear, Nose, Throat - No masses, No lesions Cardiac - RRR, no murmurs Lungs - Clear Abd - Soft, NT, ND, No palpable pulsatile masses Extremities - Warm, pink, no edema, brisk capillary refill Vascular Exam: R L Carotid 2/2 bruit () 2/2 bruit () Radial 2/2 2/2 Femoral 2/2 2/2 Popliteal 2/2 2/2 DP 2/2 2/2 PT 2/2 2/2 Labs: None Studies: Report from [facility] [place]. 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 Neck is 'several cm' long. Assessment and Plan: Small, asymptomatic infrarenal AAA. Ms Gao has a 4.5 -cm AAA. This is below the threshold for repair (5-6cm). I have explained the natural history of AAA including the annual risk of rupture and (<1% for a AAA this size). I have explained that aneurysms are typically repaired once the risk of rupture exceeds the risk of repair. We discussed the repair modalities including open and endovascular. I have discussed risk factors for AAA growth as well as the warning signs of rupture. I have counceled her on risk reduction for growth including blood pressure control and mangment of her serum cholesterol levels (she does not smoke). I have also explained the AAA tend to run in family's and suggested he adivse first degree relatives over age 60 to be screened. We will see her back in 6-mo with a CTA. documented in this encounter Plan of Treatment Not on filedocumented as of this encounter Visit Diagnoses Diagnosis AAA (abdominal aortic aneurysm) - Primar y Abdominal aneurysm without mention of ru pture documented in this encounter
--- OUTSIDE RECORDS SUMMARY | 2022-05-23 17:35 | XMS_ITS | Encounter Summary ---
:1940 [place] [address] Care Team Providers Name Role Phone Unavailable Primary Care Provider Unavailable Encounter Details Date Type Department Care Team Description 09/17/2012 - Hospital Encounter 4 [facility] Andrew Genao, AAA (a bdominal 09/18/2012 [facility] aortic aneurysm) [facility] [address] [place] [id number] [phone] Social History Tobacco Use Types Packs/Day Years [...] Sign Reading Time Taken Comments Blood Pressure 126/64 09/18/2012 6:59 AM EST Pulse 62 09/18/2012 6:59 AM EST Temperature 36.4 ??C (97.5 ??F) 09/18/2012 6:59 AM EST Respiratory Rate 16 09/18/2012 6:59 AM EST Oxygen Saturation 99% 09/18/2012 6:59 AM EST Inhaled Oxygen Concentration - - Weight 60.8 kg (134 lb) 09/17/2012 8:55 PM EST Height 157.5 cm (5' 2) 09/17/2012 8:55 PM EST Body Mass Index 24.51 09/17/2012 8:55 PM EST documented in this encounter Discharge Instructions Patient InstructionsLillian Parisi RN - 09/18/2012 8:19 AM EST You were admitted for surgical repair of your Abdominal Aortic Aneurysm (AAA). An Endovascular repair was performed on 09/17/2012. Your surgery went well. We will want to see you in about one month witha CT Scan. These appointments will be mailed to you, if you do not receive them please call our office as your follow up is important to us. Call your doctor if: You have any abdominal or back pain or any redness, drainage or separation of your groin incisions Activity level: Up as tolerated Diet: Regular Driving: None for a couple weeks until you are feeling perfect, none if taking narcotics for pain and only if you were driving prior to this admission. Shower/Bath: Ok to shower Wound Care: Wash groins with soap and water daily, pat dry. For any questions or concerns please call [phone] Lillian Parisi RN Vascular Nurse Clinician documented in this encounter Medications at Time of Discharge Medication Sig Dispensed Refills Start Date End Date acetaminophen (TYLENOL) Take 2 tablets by 30 tablet 0 09/18 325 mg tablet mouth every 6 hours as needed for Pain and Fever. Chantilly-3 Fatty Acids (FISH Take 1 capsule by 0 04/201204/06/2021 OIL) 500 mg CpDR mouth daily. multivitamin (THERAGRAN) Take 1 tablet by 0 09/1808/20/2021 tablet mouth daily. cholecalciferol, Vitamin Take 1 tablet by 0 09/1804/06/2021 D3, (VITAMIN D-3) 400 unit mouth daily. tablet Icrjtwd-Rns-Usq Take 1 tablet by 0 09/18/2012 A5-Rlnnjn-Es (CALCIMATE) mouth daily. Tab aspirin 325 mg EC tablet Take 81 mg by 0 03/05/20 09 08/20/2021 mouth. simvastatin (ZOCOR) 80 mg 80 MG = 1 0 03/05/2009 04/06/2021 tablet Tablet(s), PO, Once daily nitroGLYcerin (NITROSTAT) 0.4 mg, Sublingual, 0 0 03/05/2009 04/06/2021 0.4 mg SL tablet q 5min prn chest pain clopidogrel (PLAVIX) 75 mg 75 MG = 1 0 9 08/20/2021 tablet Tablet(s), PO, Once daily documented as of this encounter Progress Notes Bertin Bernabe RN - 09/18/2012 10:05 AM EST Patient Name: Peg Gao Patient Age: 71 y.o. Birthdate: 1940 Admit date: 09/17/2012 Attending Physician: Andrew Genao MD Patient is being dc'd to home,no VNA. X2 IV's dc'd with catheters intact. DC info explained and understood. All belongings returned to family. Victor Manuel Daniels MD - 09/18/2012 8:11 AM EST General Surgery Resident Inpatient Progress Note ID: Peg Gao is a 71 y.o. female POD#1 s/p EVAR AAA 24hr events: ?? No events overnight ?? Ambulated x 1 independently yesterday Subjective: no complaints this AM, denies n/v/cp/sob O: Last value Range last 24hrs Temperature Temp: 36.4 ??C (97.5 ??F) Temp: [36 ??C (96.8 ??F)-36.8 ??C (98.2 ??F)] Heart Rate Heart Rate: 62 Heart Rate: [59-89] Blood Pressure BP: 126/64 mmHg BP: (117-184)/(55-80) Respiratory Rate Resp: 16 Resp: [14-18] SpO2 SpO2: 99 % SpO2: [91 %-100 %] In: 4109 [P.O.:1340; I.V.:2769] Out: 2525 [Urine:2275] Physical Exam: General: NAD, resting comfortably, pleasant, conversant CVS: RRR Pulm: CTAB Abd: soft, nontender, non-distended : FTG Skin: warm, dry Ext: no c/c/e, cap refill <2sec. B/l groin incisions c/d/i with dermaflex. Rt DP/PT palpable, left DP/PT dopplerable Neuro: CN 2-12 grossly intact, nonfocal,moving all four extremities spontaneously Recent Labs Basename 09/18/12 0628 09/17/12 1930 09/17/12 1600 ??? WBC 9.6 12.6* 8.7 ??? HGB 12.1 13.1 12.9 ??? HCT 36.3 39.0 37.7 ??? PLATELET 225 218 191 ??? PT -- -- -- ??? INR -- -- -- ??? PTT -- -- -- Recent Labs Basename 09/18/12 0628 ??? NA 139 ??? K 3.7 ??? CL 103 ??? CO2 28 ??? BUN 9 ??? CREATININE 0.49* ??? GLUCOSE 183 ??? CALCIUM 8.2* ??? MAGNESIUM -- ??? PHOS -- NEW IMAGING: ?? none ASSESSMENT: Peg Gao is a 71 y.o. female POD#1 s/p EVAR for AAA PLAN: NEURO: pain well controlled on current oral regimen CV: restart home meds, otherwise stable PULM: stable GI: regular diet : d/c velasco FEK: replete lytes prn, HLIV ID: stable, no infections. periop abx HEME: stable Hb ENDO: stable PROPHYLAXIS: OOB ad mirza. ASA/plavix DISPO: likely home this afternoon vs. Tomorrow depending upon progress today. Victor Manuel Deal MD - 09/17/2012 6:22 PM EST Vascular Surgery Post-Operative Note Procedure: AAA EVAR Subjective: pt feels well, no complaints. Denies CP/SOB/n/v/leg pain Objective: VS: Blood pressure 117/55, pulse 71, temperature 36.1 ??C (97 ??F), temperature source Temporal, resp. rate 16, weight 61.2 kg (134 lb 14.7 oz), SpO2 91.00%. PE: General: NAD, resting comfortable HEENT: NCAT CV: RRR Pulm: CTA b/l Abd: Soft NTND Ext: b/l groin puncture sites c/d/i no palpable tenderness or hematoma Neuro: grossly intact, no focal deficits Hb = 12.9 @ 1600 A/P: 71yo Female s/p above procedure, currently recovering well -f/u H/H in 4 hours -otherwise continue current mgmt Ryland Adorno RN - 09/17/2012 4:15 PM EST 1550 Pt to PACU bilat groin incisions with derma adame in Place CDI Palp pulse DP/PT bilat 1620 Dr De Souza and team to bed side to see Pt on RA trial 1650 Pt states burning of 3/10 in groin sites med with Dilaudid 1723 Pt in to bed side, top and bottom teeth placed [address] Coyle 1755 report to janet Peng RN for dinner coverage 1999 Shefali Dcd Cbc called to Dr Rivero Pt OK to trans to room at this time documented in this encounter H&P Notes Brian Soliman MD - 09/17/2012 12:05 PM EST There have been no interval changes to patients H&P since last note. Brian Soliman MD - 09/15/2012 3:50 PM EDT Vascular Surgery Pre-OP H&P HPI: Ms Gao is a 71 yo female with h/o former tobacco abuse, CAD, hyperlipidemia and a AAA that has been followed for 3 years, now at 4.5-cm. She previously was asymptomatic and denied abdominal, back or flank pain. However, over the past several months the aneurysm has become tender during sex and when palpated. Repeat imaging has not demonstrated any increase in size however. She has a history of2 prior ND. No current CP or SOB. Denies claudication Atherosclerotic Risk Factors: (n) DM (n) HTN (y) Hyperlipidemia (former) Tobacco Other Past Medical History/Risk Factors: (y) Previous ND (n) Angina (n) CHF (n) Arrythmia (n) [...] DP 2/2 2/2 PT 2/2 2/2 Labs: -CBC: 7.8>14.4<268 -Creat: 0.78 Studies: Report from [facility] [place]. 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 Neck is 'several cm' long. Assessment and Plan: Ms Gao is a 71 yo female with a 4.5 cm AAA that has developed associated tenderness. 3D CT and M2S imaging demonstrate anatomy appropriate for EVAR. AAA has a long neck with somethrombus, common iliacs are tortuous, and external iliacs are small (5.0cm) but not calcified. Plan: Cook Zenith 22-82 main body - 16F sheath 12-124 (right iliac) - 14F sheath 20-56 (left iliac) Bilateral cutdowns, left side main device (less tortuous), consider Dottering using serial Michelle dilators vs. Solopath sheath documented in this encounter Procedure Notes Provider, Scanning - 09/19/2012 11:52 AM ESTAssociated Order(s): SCAN DOC: IMPLANTABLE DEVICES; SCAN DOC: IMPLANTABLE DEVICES Provider, Scanning - 09/19/2012 11:52 AM ESTAssociated Order(s): SCAN DOC: CLAIMS ADJUSTER; SCAN DOC: CLAIMS ADJUSTER documented in this encounter Miscellaneous Notes OR Attestation - Andrew Genao MD - 09/20/2012 3:13 PM EST Attestation: Case Date: 09/17/2012 I was present for and participated in this entire case ANDREW GENAO MD 09/20/2012 Miscellaneous - Provider, Scanning - 09/19/2012 11:18 AM EST Miscellaneous - Provider, Scanning - 09/19/2012 11:17 AM EST Discharge Summary - Victor Manuel Deal MD - 09/18/2012 8:20 AM EST Inpatient - Discharge Summary Patient Name: Peg Gao Patient Age: 71 y.o. Birthdate: 1940 Admit date: 09/17/2012 Discharge date and time: 09/18/2012 Attending Physician: Andrew Genao MD Primary Diagnosis: AAA (abdominal aortic aneurysm) Secondary Diagnosis: Active Hospital Problems Diagnoses ??? AAA (abdominal aortic aneurysm) 09/17/2012: Endovascular Repair of Abdominal Aortic Aneurysm using Bifurcated Endograft Resolved Hospital Problems Diagnoses Date Resolved Active Non-Hospital Problems Diagnoses ??? CAD (coronary artery disease) ??? Former smoker ??? Hyperlipidemia ??? Hypertension ??? Bladder prolapse ??? Status post partial hysterectomy HPI: 71 year old female with a history of former tobacco abuse, CAD, hyperlipidemia and a AAA that has been followed for 3 years, now at 4.5cm. She previously was asymptomatic and denied abdominal, back or flank pain. However, over the past several months the aneurysm has become tender during sexual ac tivity and when palpated. Operations/Major Procedures: 09/17/2012: Endovascular Repair of Abdominal Aortic Aneurysm using Bifurcated Endograft ([place] Excluder); Bilateral open femoral access Hospital Course: Admitted following Endovascular Aneurysm Repair. Tolerated the operation well and without complication. Hospital course was uncomplicated. On exam abdomin soft, non distended and no longer tender to palpation. Bilateral groin incisions c/d/i without erythema, ecchymosis or hematoma. Bilateral lower extremities warm with palpable DP/PT on right and strong doppler signal on left. Priorto discharge tolerating a regular diet. Urinary catheter removed and voiding spontaneously. Up and self ambulating. Ms. Gao has met all criteria for discharge home. Important Studies and Lab Data: At discharge Hgb 12.1 Cr 0.49 Discharge to: Home Discharge Conditions: Good Discharge Medications: Medications prior to admission that will be resumed at discharge: Medication Sig Dispense Refill ??? ramipril (ALTACE) 5 mg capsule Take 10 mg by mouth daily. ??? aspirin 325 mg EC tablet 325mg, PO, qd ??? simvastatin (ZOCOR) 80 mg tablet 80 MG = 1 Tablet(s), PO, Once daily ??? clopidogrel (PLAVIX) 75 mg tablet 75 MG = 1 Tablet(s), PO, Once daily ??? nitroGLYcerin (NITROSTAT) 0.4 mg SL tablet 0.4 mg, Sublingual, q 5min prn chest pain New medications prescribed at discharge: Medication Sig Dispense Refill ??? acetaminophen (TYLENOL) 325 mg tablet Take 2 tablets by mouth every 6 hours as needed for Pain and Fever. 30 tablet ??? Chantilly-3 Fatty Acids (FISH OIL) 500 mg CpDR Take 1 capsule by mouth daily. ??? multivitamin (THERAGRAN) tablet Take 1 tablet by mouth daily. ??? cholecalciferol, Vitamin D3, (VITAMIN D-3) 400 unit tablet Take 1 tablet by mouth daily. ??? Wxephph-Gkv-Voe E9-Isdqdx-Lh (CALCIMATE) Tab Take 1 tablet by mouth daily. ??? DISCONTD: OXYcodone (ROXICODONE) 5 mg immediate release tablet Take 1-2 tablets by mouth every 4hours as needed for Pain (mild to moderate pain). 60 tablet 0 ??? DISCONTD: Blwjlas-Cjn-Rfx W3-Suhoii-Lm (CALCIMATE) Tab Take 1 tablet by mouth daily. Updated Allergies/ADRs: Allergies Allergen Reactions ??? Latex Rash Skins montemayor and becomes itchy. PCP: MECHE GERARD MD Scheduled Appointments: Future Appointments Date Time Provider Department Center 09/27/2012 1:00 PM [id number] ROOM, [facility] None 09/27/2012 2:00 PM 1422-ANDREW GENAO [facility] Outpatient Services/Studies: CT abdomen & pelvis with contrast Standing Status: Future Standing Exp. Date: 09/18/13 Order Comments: Please schedule on same day as 1 month hospital check Question Response Notes Reason for exam and clinical history: s/p EVAR Where will study be performed? [facility] Instructions Given to Patient at Discharge:. An After Visit Summary was printed and given to the patient. Provider Instructions You were admitted for surgical repair of your Abdominal Aortic Aneurysm (AAA). An Endovascular repair was performed on 09/17/2012. Your surgery went well. We will want to see you in about one month witha CT Scan. These appointments will be mailed to you, if you do not receive them please call our office as your follow up is important to us. Call your doctor if: You have any abdominal or back pain or any redness, drainage or separation of your groin incisions Activity level: Up as tolerated Diet: Regular Driving: None for a couple weeks until you are feeling perfect, none if taking narcotics for pain and only if you were driving prior to this admission. Shower/Bath: Ok to shower Wound Care: Wash groins with soap and water daily, pat dry. For any questions or concerns please call [phone] Lillian Parisi wood furniture assembler Nurse Clinician Victor Manuel Deal MD Plan of Care - Ju Duke RN - 09/17/2012 11:06 PM EST Problem: Trauma/Injury Risk (Adult, Obstetric) Goal: Trauma/Injury Risk: Absence of Trauma/Injury/Falls Outcome: Absent and monitoring Pt is resting comfortably in bed with SCDs on, to encourage pt to get out of bed residence life coordinator. See doc flowsheets for interventions. 1645: Pt up out of bed, ambulated 1x around unit independently. Problem: Skin Integrity Impairment, Risk/Actual (Adult, Obstetric) Goal: Skin Integrity Impairment, Risk/Actual: Skin Integrity/Wound Healing Outcome: Absent and monitoring Bilateral groin sites are CDI, EYEDOTTER, dermabond, no hematoma, no signs/no symptoms of infection. Problem: Pain, Acute (Adult, Obstetric) Goal: Acute Pain: Acceptable Pain Control/Comfort Level - Pain, Acute (Adult, Obstetric) Outcome: Absent and monitoring Pt denies pain at this time, will continue to monitor and re-assess. Op Note - Brian Soliman MD - 09/17/2012 4:00 PM EST [facility] Operative Note Patient Name: Peg Gao : [id number] MR#: [id number] Case Date: 09/17/2012 Surgeon: Surgeon(s) and Role: * ANDREW GENAO MD - Primary * BRIAN SOLIMAN MD - Fellow Preoperative diagnosis: Infrarenal AAA Postoperative diagnosis: Same Procedure(s): Endovascular Repair of Abdominal Aortic Aneurysm using Bifurcated Endograft ([place] Excluder); Bilateral open femoral access General Estimated Blood Loss: 250 cc UOP: 850 cc IV Fluids: 2100 cc crystalloid Drains: none Dye: 73 cc Visipaque Fluoro Time: 12.53 min Implants: [place] Excluder [id number] (main device), [id number] (right iliac limb), [id number] (left iliaclimb) Disposition: awakened from anesthesia, extubated and taken to the recovery room in a stable condition, having suffered no apparent untoward event. Condition: doing well without problems (Please see the Surgical Encounter Summary for any Implant and Specimen details pertinent to this patient.) HPI/Surgical Indications: Ms Gao is a 71 yo female with a 4.5 cm AAA that has developed associatedtenderness. 3D CT and M2S imaging demonstrate anatomy appropriate for EVAR. AAA has a long neck withsome thrombus, common iliacs are tortuous, and external iliacs are small (5.0cm) but not calcified. She was taken for elective EVAR. Procedure Description: Patient was identified in the Preprocedure Holding Area where operative consent and marking was obtained, and she was then taken to the Operating Room and placed supine on the operating-room table where general anesthesia was induced. A Velasco catheter was placed, and intraarterial and intravenous access was obtained. Patient was prepped and draped including from her umbilicus down to her bilateral groins in standard sterile fashion, and a time out was conducted by Dr. Genao to go over all critical points of the case prior to proceeding. When everybody was in agreement we started by making bilateral oblique incisions just above her groin creases to expose her left and right common femoral arteries. Briefly, a 15 blade was used to cut the skin; and electrocautery was used to dissect down through the soft tissue and the Addi fascia. We identified the inguinal ligaments on both sides and then dissected down until we identified the common femoral artery we came underneath the inguinal ligament. We circumferentially dissected out both vessels with placement of vessel loops at the proximal and distal extent of the artery. We placed double vessel loops around the circumflex, femoral, and all side branches. Of note, the arteries were both very severely inflamed and had a lot of inflammatory tissue around them. Once the arteries were exposed, we brought a portable C-arm onto the operative field. We started by placing a hollow 18-gauge needle in both the left and right common femoral artery with placement of J-wires. Once we had J-wire access, we up-sized to 8-Bhutanese sheaths. On the left side, we then placed a pigtail flush catheter, which was advanced up into the level of the L1 vertebra. On the right side, we placed a Zulema wire after exchanging with the Kumpe catheter, which was exchanged over the J-wire. Once we had the Zulema in place and the flush catheter, we shot an aortogram to delineate the location of the left and right renal arteries. We then went ahead and exchanged on the right side for a 12-Bhutanese DrySeal sheath over the Zulema wire. Once this was in place, we exchanged for a Kumpe catheter that was placed up at the level just above the renal arteries. The Zulema wire was removed, and the catheter was hooked up to power injector until we were ready to shoot an aortogram. On the left side, we had already planned on placing the main-body device. First we exchanged the 8-Bhutanese sheath for an 18-Bhutanese DrySeal sheath. Her alturas iliacs were very small and we were concerned about the possible rupture so we went very slow and carefully doddered up these prior to placing the 18-Bhutanese sheath. This went smoothly and was advanced up into the infrarenal aorta. Once we had an 18-Bhutanese sheath in place, we then took our main-body [place] device. We first placed it under fluoroscopy to orient ourselves in terms of its contralateral gate location. Once this was ascertained, we then advanced over the wire up into the infrarenal aorta with the gate in the posterolateral position. We placed it at the level of the left renal artery. Once we were happy with the location, we shot another magnified aortogram, this time using the Kumpe flush catheter in the right femoral access. This showed the exact portion of the renal arteries in magnified view. We then placed the endograft in location and deployed it by releasing the ripcord. It appeared to be in good orientation relative to the renals. We then took our Kumpe catheter and brought it down; and with the help of a nimble Bebo wire, we selectively cannulated the contralateral gate that was in a posterior location. Once we were able to get the wire to advance into contralateral gate, we advanced the Catheter and spun to confirm location. We also did some hand injection of contrast to ensure that we were actually within the gate. Once we were sure, we advanced a Zulema wire through the Kumpe catheter and removed this. We then took our contralateral limb device that had been preselected and advanced it over the wire and deployed it with a sufficient overlapping below the flow divider within the [place] device. Once this was done, we then brought our sheath back for our ipsilateral limb. We did shoot a retrograde angiogram to delineate the takeoff of the left hypogastric artery. Once this was done, we took our ipsilateral iliac limb device and advanced it over the wire. Once it was in position assuring that it was not brought down too low to cover the internal iliac, we then deployed this endograft without any complication. Once we were done with deployment, we then took a Reliant balloon and did a postdilation of our proximal and overlap within our bifurcated device as well as our distal iliac limbs. Once we were done post dilating, we readvanced the flush catheter through the left limb of the endograft and shot a completion aortogram, which showed no evidence of type 1 or type 2 endoleak. There was what appeared to be a slight, very mild type 2 endoleak, which was nonconsequential. We then exchanged the Zulema wire for J-wires in both the left and right access and advanced the obturator devices through both DrySeals. We then placed [place] clamps for proximal control in both her common femoral arteries as well as angled ductus on her distal common femorals. We then sequentially removed both of our DrySeal sheaths while clamping the arteries. We then took 5-0 Prolene sutures and closed our arteriotomy in standard running fashion. Once this was done, we released the clamps and found both arteries to be hemostatic with good triphasic flow that was confirmed with a Doppler pencil. We also confirmed there were good palpable pulses and the feet were both warm and perfused. Once we were happy with this, we placed some fibrillar and some thrombin-soaked Gelfoam and ensured that there was good hemostasis within both of our femoral exposure incisions. We then commenced to close the groin using several layers of interrupted 3-0 Vicryl sutures. We closed both of our incisions using a running 4-0 Monocryl suture and placed a layer of DermaFlex skin glue over the skin. We then awakened the patient where she was taken to the PACU where she remained in stable condition at the time of this dictation. Dr. Genao was scrubbed and present for the entirety of this procedure. Brief Op Note - Andrew Genao MD - 09/17/2012 3:42 PM EST Pre-op Dx: AAA Post-op Dx: Same Procedure: EVAR, [place] Surgeons: Lona Genao Anesthesia: GET Fluids: 2100 crystaloid Urine: 850 EBL: 250 Contrast: 73 Findings: [place] [id number] via open left fem access, 16x95 left iliac extension; [id number] via open rightfemoral access Disposition: to PACU Miscellaneous - Provider, Scanning - 09/17/2012 2:28 PM EST Miscellaneous - Provider, Scanning - 09/17/2012 2:28 PM EST documented in this encounter Plan of Treatment Pending Results Name Type Priority Associated Diagnoses Date/Ti me IR OR VASC ANGIOGRAM Imaging Routine 012 3:17 PM EST IMAGE STORAGE ONLY Scheduled Orders Name Type Priority Associated Diagnoses Order S chedule IR OR VASC ANGIOGRAM Imaging Routine Once CO N (for Radiant IMAGE STORAGE ONLY use) for 1 Occurrences starting 2011 until 2 documented as of this encounter Procedures Procedure Name Priority Date/Time Associated Comments Diagnosis IMPLANTABLE DEVICES 09/19/2012 11:52 Resu lts for this SCAN AM EST procedure are i n the results section. CLAIMS ADJUSTER SCAN 09/19/2012 11:52 Res ults for this AM EST procedure are i n the results section. EXPOSURE, ZOIE.,OPEN Routine 09/18/2012 7:48 AM AAA (abdominal FEM. ARTERY DURING EST aortic aneurysm) ENDOVASCULAR REPAIR PLACE EXT EVG Routine 09/18/2012 7:48 AM AAA (abdominal INTRARENAL EST aortic aneurysm) AORTIC\ILIAC ARTERY ANEURYSM, S&I EVG, INFRARENAL AAA Routine 09/18/2012 7:48 AM AAA (abdominal OR DISSECTION, S&I EST aortic aneurysm) EVG-PLACEMENT, CUFF Routine 09/18/2012 7:48 AM AAA (abdominal OR EXT. AORTIC OR EST aortic aneurysm) ILIAC ANEURYSM REPAIR,GORE DIFFERENTIAL, Routine 09/18/2012 6:28 AM Results for this AUTOMATED EST procedure are i n the results section. CBC (WITH DIFF) Routine 09/18/2012 6:28 AM Result s for this EST procedure are i n the results section. BASIC METABOLIC PANEL Routine 09/18/2012 6:28 AM Results for this (NON-FASTING) EST procedure are in the results section. HEMOGRAM STAT 09/17/2012 7:30 PM Results f or this EST procedure are i n the results section. HEMOGRAM STAT 09/17/2012 4:00 PM Results f or this EST procedure are i n the results section. BLOOD GAS ARTERIAL STAT 09/17/2012 2:25 PM Res ults for this ([facility]) EST procedure are i n the results section. @EXPOSURE, OPEN FEM. 09/17/2012 12:43 AAA (abdominal ARTERY FOR PM EST aortic aneurysm) ENDOVASCULAR PROSTHESIS, GROIN-ZOIE (WRVU 6.74) @PLACE EXT EVG 09/17/2012 12:43 AAA (abdominal INTRARENAL PM EST aortic aneurysm) AORTIC\ILIAC ARTERY ANEURYSM, S&I (WRVU 1.36) @EVG, INFRARENAL AAA 09/17/2012 12:43 AAA (abdominal OR DISSECTION, S&I PM EST aortic aneurysm) (WRVU 4.49) @EVG-PLACEMENT, CUFF 09/17/2012 12:43 AAA (abdominal OR EXT. AORTIC OR PM EST aortic aneurysm) ILIAC ANEURYSM REPAIR, GORE (WRVU 12.8) @EVG, BIFURCATED 09/17/2012 12:43 AAA (abdominal MODULAR AORTIC, W ONE PM EST aortic aneurysm) DOCKING LIMB, ANEURX (WRVU 23.79) ABO/RH TYPING Routine 09/17/2012 12:24 Results fo r this PM EST procedure are i n the results section. ANTIBODY SCREEN Routine 09/17/2012 12:24 Results for this PM EST procedure are i n the results section. TYPE AND SCREEN Routine 09/17/2012 12:24 ([facility]) PM EST documented in this encounter Results SCAN DOC: CLAIMS ADJUSTER (09/19/2012 11:52 AM EST) Narrative 09/19/2012 1:40 PM EST Procedure Note Provider, Scanning - 09/19/2012 11:52 AM EST Scanning Provider MEDIA MGR SCAN EXT ORDR/RSLT SCAN DOC: IMPLANTABLE DEVICES (09/19/2012 11:52 AM EST) Narrative 09/19/2012 11:52 AM EST Procedure Note Provider, Scanning - 09/19/2012 11:52 AM EST Scanning Provider MEDIA MGR SCAN EXT ORDR/RSLT (ABNORMAL) DIFFERENTIAL, AUTOMATED (09/18/2012 6:28 AM EST) [facility] gist Method Time Signature Neutrophils % 75.8 (H) 34.0 - CERNER 71.0 % MILLENNIUM Neutr Abs (ANC) 7.24 (H) 1.50 - CERNER 6.30 MILLENNIUM x10(3)/mc L Lymphocytes % 16.7 (L) 19.0 - CERNER 53.0 % MILLENNIUM Lymphocytes Abs 1.6 1.0 - 3.6 CERNER x10(3)/mc MILLENNIUM L Monocytes % 7.1 4.0 - CERNER 13.0 % MILLENNIUM Monocyte Abs 0.7 0.2 - 1.0 CERNER x10(3)/mc MILLENNIUM L Eosinophils % 0.1 0.0 - 7.0 CERNER % MILLENNIUM Eosinophils Abs 0.0 0.0 - 0.5 CERNER x10(3)/mc MILLENNIUM L Basophils % 0.2 0.0 - 2.0 CERNER % MILLENNIUM Basophils Abs 0.0 0.0 - 0.2 CERNER x10(3)/mc MILLENNIUM L Immature Gran % 0.10 0.00 - CERNER 0.66 % MILLENNIUM Comment: Immature granulocytes(IG's)percentage an d absolute count will include metamyelocytes, myelocytes, and promyelo cytes. Blood smears from CBCs yielding IG's will be scanned manually for concgary dananand. If this scan disagrees with the automated IG or if promyelocytes are not ed, a manual differential will be performed. Apple Gran Abs 0.01 0.00 - 0.05 x10(3)/mcL CER NER MILLENNIUM Specimen Anatomical Collection Method Collection Time Receive d Time (Source) Location / / Volume Laterality Blood specimen 09/18/2012 6:28 AM 012 6:49 (specimen) EST AM EST Andrew Genao MD HEMATOLOGY ORDERABLES Performing Organization Address City/State/[place] [address] CERNER MILLENNIUM (ABNORMAL) Basic Metabolic Panel (non-fasting) (09/18/2012 6:28 AM EST) P athologist Signature Glucose Lvl 183 60 - 199 CERNER mg/dL MILLENNIUM Comment: Diabetes: >=200 mg/dL plus symp toms BUN 9 8 - 18 mg/dL CERNER MILLENNIUM Creatinine 0.49 (L) 0.70 - 1.20 mg/dL CERNER MILL ENNIUM Comment: Please note that the pediatric reference intervals supplied above were not validated at [facility]. Results from pediatri c patients should be interpreted in conjunction to the patient's age, height and muscle mass. Sodium 139 135 - 145 mmol/L CERNER YEMI NIUM Potassium 3.7 3.5 - 5.0 mmol/L CERNER YEMI NIUM Comment: Please note: ??Patients with WBC >100,00 0 may have falsely elevated Potassium levels. ??For accurate Potassium quantif ication in these patients send serum separator tube (gold top) for subsequent determinations. ??Contact the Clinical Chemistry Laboratory if there are any qu estions. Chloride 103 98 - 107 mmol/L CERNER MILLENN IUM CO2 28 22 - 31 mmol/L CERNER MILLENNI UM Anion Gap 8 5 - 15 mmol/L CERNER MILLENNIU M Calcium 8.2 (L) 8.5 - 10.5 mg/dL CERNER YEMI NIUM Estimated GFR >60 >=60 CERNER MILLENNIU M Comment: The National Kidney Disease Education Pr ogram (NKDEP) has recommended all laboratories report estimated GFR (eGFR) along with plasma creatinine measurements to assist you with recognit ion of early kidney disease. Caveats: ??Plasma creatinine should be a t steady-state (unchanged within the past week). For patient s multiply eGFR by 1.2. The MDRD equation was developed using patients be tween the ages of 18 and 70 years. ?? The MDRD equation has not been validated for patients < 18 years of age and should not be used to assess renal function in the pediatric population. ??The MDRD eGFR equation will also overestimate the true GFR of patients above the age of 70. ??This overestimation is variable bu t increases with age. At present, NKDEP does NOT recommend usi ng the MDRD equation for drug dosing purposes and pharmacists should continue to use their current dosing methods. In addition, numerical eGFR values great er than 60 ml/min/1.73 square meters should be treated as > 60, and not an ex act number due to greater inaccuracies at these higher values. Per NKDEP, they classify normal renal function as any GFR >60ml/min/1.73 square meters; chronic kidney disease wh en GFR <60, and renal failure when GFR <15. ??This calculation may not be valid for patients with atypical muscle mass (very lean or obese), acute renal failur e, and in patients with diabetic kidney disease. References: http://nkdep.nih.gov/resources/NKDEP_Sug gestn4Labs_0606_508.pdf http://www.kidney.org/professionals/kls/ pdf/faq_gfr.pdf Manoj K, Edilberto NA, Curly AK, Renny TS, Monica AD, Irvin MYLES. Relative performance of the MDRD and CKD-EPI equa tions for estimating glomerular filtration rate among patients with vari ed clinical presentations. Clin J Am Soc Nephrol;6:1963-72. Specimen Anatomical Collection Method Collection Time Receive d Time (Source) Location / / Volume Laterality Blood specimen 09/18/2012 6:28 AM 012 6:49 (specimen) EST AM EST Resulting Agency Comment Spec In Lab Andrew Genao MD CHEMISTRY ORDERABLES Performing Organization Address City/State/ZIP Code Phon e Number [place] [phone] [facility] [address] CERNER MILLENNIUM (ABNORMAL) CBC (with Diff) (09/18/2012 6:28 AM EST) P athologist Signature WBC 9.6 4.0 - 10.0 CERNER x10(3)/mcL MILLENNIUM RBC 4.10 3.93 - CERNER 5.22 MILLENNIUM x10(6)/mcL Hemoglobin 12.1 11.2 - CERNER 15.7 gm/dL MILLENNIUM Hematocrit 36.3 34.0 - CERNER 45.0 % MILLENNIUM MCV 88.5 79.0 - CERNER 94.0 fL MILLENNIUM MCH 29.5 26.6 - CERNER 32.2 pg MILLENNIUM MCHC 33.3 32.0 - CERNER 36.5 gm/dL MILLENNIUM Platelets 225 145 - 370 CERNER x10(3)/mcL MILLENNIUM RDWSD 46.8 (H) 35.0 - CERNER 46.0 fL MILLENNIUM RDWCV 14.4 10.9 - CERNER 14.4 % MILLENNIUM MPV 9.8 9.0 - 12.0 CERNER fL MILLENNIUM Specimen Anatomical Collection Method Collection Time Receive d Time (Source) Location / / Volume Laterality Blood specimen 09/18/2012 6:28 AM 012 6:49 (specimen) EST AM EST Resulting Agency Comment Spec In Lab Andrew Genao MD HEMATOLOGY ORDERABLES Performing Organization Address City/State/[place] [address] CERNER MILLENNIUM (ABNORMAL) Hemogram (09/17/2012 7:30 PM EST) P athologist Signature WBC 12.6 (H) 4.0 - 10.0 CERNER x10(3)/mcL MILLENNIUM RBC 4.42 3.93 - CERNER 5.22 MILLENNIUM x10(6)/mcL Hemoglobin 13.1 11.2 - CERNER 15.7 gm/dL MILLENNIUM Hematocrit 39.0 34.0 - CERNER 45.0 % MILLENNIUM MCV 88.2 79.0 - CERNER 94.0 fL MILLENNIUM MCH 29.6 26.6 - CERNER 32.2 pg MILLENNIUM MCHC 33.6 32.0 - CERNER 36.5 gm/dL MILLENNIUM Platelets 218 145 - 370 CERNER x10(3)/mcL MILLENNIUM RDWSD 45.7 35.0 - CERNER 46.0 fL MILLENNIUM RDWCV 14.2 10.9 - CERNER 14.4 % MILLENNIUM MPV 9.8 9.0 - 12.0 CERNER fL MILLENNIUM Specimen Anatomical Collection Method Collection Time Receive d Time (Source) Location / / Volume Laterality Blood specimen 09/17/2012 7:30 PM 012 7:41 (specimen) EST PM EST Resulting Agency Comment Spec In Lab Andrew Genao MD HEMATOLOGY ORDERABLES Performing Organization Address City/[facility]/ZIP [place] [address] CERNER MILLENNIUM Hemogram (09/17/2012 4:00 PM EST) P athologist Signature WBC 8.7 4.0 - 10.0 CERNER x10(3)/mcL MILLENNIUM RBC 4.26 3.93 - 5.22 CERNER x10(6)/mcL MILLENNIUM Hemoglobin 12.9 11.2 - 15.7 CERNER gm/dL MILLENNIUM Hematocrit 37.7 34.0 - 45.0 CERNER % MILLENNIUM MCV 88.5 79.0 - 94.0 CERNER fL MILLENNIUM MCH 30.3 26.6 - 32.2 CERNER pg MILLENNIUM MCHC 34.2 32.0 - 36.5 CERNER gm/dL MILLENNIUM Platelets 191 145 - 370 CERNER x10(3)/mcL MILLENNIUM RDWSD 46.0 35.0 - 46.0 CERNER fL MILLENNIUM RDWCV 14.3 10.9 - 14.4 CERNER % MILLENNIUM MPV 9.9 9.0 - 12.0 CERNER fL MILLENNIUM Specimen Anatomical Collection Method Collection Time Receive d Time (Source) Location / / Volume Laterality Blood specimen 09/17/2012 4:00 PM 012 4:50 (specimen) EST PM EST Resulting Agency Comment Spec In Lab Andrew Genao MD HEMATOLOGY ORDERABLES Performing Organization Address City/[facility]/ZIP [place] [address] CERNER MILLENNIUM (ABNORMAL) BLOOD GAS ARTERIAL (09/17/2012 2:25 PM EST) Analysis Performed At Patho logist Time Signature pH Art 7.47 (H) 7.35 - CERNER 7.45 MILLENNIUM pCO2 Art 32 (L) 35 - 45 CERNER mmHg MILLENNIUM pO2 Art 208 (H) 85 - 104 CERNER mmHg MILLENNIUM HCO3 Art 23.1 20.0 - CERNER 26.0 MILLENNIUM mmol/L BE Art -0.5 -3.0 - 3.0 CERNER mmol/L MILLENNIUM Hgb Blood Gas 13.3 11.2 - CERNER 15.7 gm/dL MILLENNIUM Comment: Total Hemoglobin (in gm/dL) ?Based on [facility] Hematology ran ges: ?Age ?Referen ce Range Less than 3 days ?14.5 to 22.5 3 days to 2 weeks ? 12.5 to 20.5 2 weeks to 1 month ?10.0 to 18.0 1 to 6 months ?9.4 to 14 .0 6 months to 2 years ? 10.5 to 13.5 2 to 6 years ?11.5 to 13 .5 6 to 12 years ? 11.5 to 15. 5 12 to 18 years (female) 12.0 to 16.0 ? (male) ?? 13.0 to 16.0 > 18 years ? (female) 11.2 to 15.7 ? (male) ?? 13.7 to 17.5 O2HB Art 98.4 (H) 94.0 - 97.0 % CERNER MILLENNIU M COHB Art 1.0 % CERNER MILLENNIUM Comment: Nonsmokers: ??0.5-1.5% COHB Smokers: ??Variable, but usually less th an 10% Toxic: 20 - 30% COHB Lethal: ??Greater than 60% COHB METHB Art 0.1 <=1.5 % CERNER MILLENNIUM Na Whole Blood 140 135 - 145 mmol/L CERNER M ILLENNIUM K Whole Blood 3.4 (L) 3.5 - 5.0 mmol/L CERNER ND LLENNIUM Comment: Please note: ??Patients with WBC >100,00 0 may have falsely elevated Potassium levels. ??Contact the Clinical Chemistry Laboratory if there are any questions. ICa Whole Blood 1.13 (L) 1.15 - 1.33 mmol/L CERNE R MILLENNIUM Comment: Reference Ranges: ?? < 19 yrs: 1.22 - 1.37 mmol/L ? Adults: 1.15 - 1.33 mmol/L Note: ??Total bilirubin higher than 20 m g/dL may lead to falsely low ionized calcium. CL Whole Blood 108 (H) 98 - 107 mmol/L CERNER ND LLENNIUM Gluc Whole Bld 118 60 - 199 mg/dL CERNER MIL LENNIUM Comment: Diabetes: >=200 mg/dL plus symp toms. Lactate WB 2.2 0.5 - 2.2 mmol/L CERNER MILLE NNIUM Specimen Anatomical Collection Method Collection Time Receive d Time (Source) Location / / Volume Laterality Blood specimen 09/17/2012 2:25 PM 012 2:31 (specimen) EST PM EST Resulting Agency Comment Spec In Lab Andrew Genao MD CHEMISTRY ORDERABLES Performing Organization Address City/State/ZIP Code [place] [address] KTAHY MILLENNIUM ANTIBODY SCREEN (09/17/2012 12:24 PM EST) Analysis Performed At Patho logist Time Signature Ab Screen Negative KATHY Interp MILLENNIUM Expires at [id number] KATHY [id number] on: MILLENNIUM Specimen Anatomical Collection Method Collection Time Receive d Time (Source) Location / / Volume Laterality Blood specimen 09/17/2012 12:24 2 (specimen) PM EST 12:29 PM EST Resulting Agency Comment Spec In Lab Andrew Genao MD BLOOD BANK ORDERABLES Performing Organization Address City/State/ZIP [place] [address] [facility] [address] [facility] A[facility]RH [facility] (09/17/2012 12:24 PM EST) P athologist Signature ABORh Type O Pos KATHY MICHAUD Specimen Anatomical Collection Method Collection Time Receive d Time (Source) Location / / Volume Laterality Blood specimen 09/17/2012 12:24 2 (specimen) PM EST 12:29 PM EST Resulting Agency Comment Spec In Lab Andrew Genao MD BLOOD BANK ORDERABLES Performing Organization Address City/State/ZIP Code Phon e Number [place] [phone] [facility] [address] [facility] documented in this encounter Visit Diagnoses Diagnosis AAA (abdominal aortic aneurysm) - Primar y Abdominal aneurysm without mention of ru pture documented in this encounter Administered Medications Inactive Administered Medications - up to 3 most recent administrations Medication Order MAR Action Action Date Dose Rate Site acetaminophen (TYLENOL) tablet Given 09/17/2012 11:34 PM EST 325 mg 650 mg 650 mg, Oral, EVERY 6 HOURS PRN, Starting on Mon09/17/12 at 1754, Until Mon09/18/12 at 1235, Pain, Fever, Administer for temperature greater than or equal to 38.2 degrees celsius. Maximum daily dose of acetaminophen from all sources not to exceed 4,000 mg., Routine aspirin EC tablet 325 mg Given 09/18/2012 9:00 AM EST 325 mg 325 mg, Oral, DAILY, First dose on Mon09/17/12 at 1815, Until Discontinued, Routine Given 09/17/2012 6:34 PM EST 325 mg ceFAZolin (ANCEF) 1g in dextrose 5% Given 09/17/2012 1:15 PM EST 1,000 mg 100 mL/hr 50mL 1,000 mg (1 g), Intravenous, ONCE, 1 dose, On Mon09/17/12 at 1215, Administer over 30 Minutes, Redose after 4 hours., Day of Surgery (Day of Procedure), Indication for (Active or Suspected): Prophylaxis ceFAZolin (ANCEF) 1g in dextrose 5% Given 09/18/2012 5:09 AM EST 1,000 mg 100 mL/hr 50mL 1,000 mg (1 g), Intravenous, EVERY 8 HOURS, 3 doses, First dose on Mon09/17/12 at 2115, Last dose on Mon09/18/12 at 1315, Administer over 30 Minutes, Indication for (Active or Suspected): Prophylaxis Given 09/17/2012 9:44 PM EST 1,000 mg 100 mL/hr clopidogrel (PLAVIX) tablet 75 mg Given 09/18/2012 9:00 AM EST 75 mg 75 mg, Oral, DAILY, First dose on Mon09/18/12 at 0900, Until Discontinued, Routine docusate sodium (COLACE) capsule 100 mg Given 09/18/2012 9:00 AM EST 100 mg 100 mg, Oral, 2 TIMES DAILY, First dose on Mon09/17/12 at 2115, Until Discontinued, Routine Given 09/17/2012 9:44 PM EST 100 mg HYDROmorphone (DILAUDID) injection 0.2-0 .4 mg Given 09/17/2012 5:07 PM EST 0.2 mg 0.2-0.4 mg, Intravenous, EVERY 5 MIN PRN, Starting on Mon09/17/12 at 1611, Until Mon09/17/12 at 2021, Pain, For moderate pain give: 0.2 mg every 5 minute prn For severe pain give: 0.4 mg every 5 minutes prn Maximum dose: 4 mg per hour Hold for respiratory rate less than 10 per minute., PACU Recovery, Routine Given 09/17/2012 4:54 PM EST 0.2 mg sodium chloride 0.9 % flush 5 mL Given 09/18/2012 9:15 AM EST 5 mLs 5 mL, Intravenous, EVERY 12 HOURS, First dose on Mon09/17/12 at 2115, Until Discontinued Given 09/17/2012 9:15 PM EST 5 mLs sodium chloride 0.9% 1,000 mL infusion New Bag 09/17/2012 5:15 PM EST 100 mL/hr at 100 mL/hr, Intravenous, CONTINUOUS, Starting on Mon09/17/12 at 1715, Until Mon09/17/12 at 2050 sodium chloride 0.9% infusion New Bag 09/17/2012 6:00 PM EST 50 mL/hr 50 mL/hr 50 mL/hr, Intravenous, CONTINUOUS, Starting on Mon09/17/12 at 1815, Until Mon09/18/12 at 0730 documented in this encounter Active and Recently Administered Medications Due to Daylight Saving Time, this section may contain times in both EDT and EST. Scheduled Medication Order 09/16/2012 09/17/2012 09/18/2012 aspirin EC tablet 325 mg (CANCELED) 1834 (Given - Provider: Raphael Nathan, LAURA) 0900 (Given - Provider: Bertin akers RN) 325 mg, Oral, DAILY, First dose on Mon11/17/11 at 1815, Until Discontinued, Routine ceFAZolin (ANCEF) 1g in dextrose 5% 50mL (COMPLETED) 1315 (Given - Provider: Michael Ferrer) 1 g = 1,000 mg, Intravenous, ONCE, 1 dos e, Mon09/17/12 at 1215, for 30 Minutes, Redose after 4 hours., Day of Surgery (Day of Procedure) ceFAZolin (ANCEF) 1g in dextrose 5% 50mL (CANCELED) 2143 (Given - Provider: Ju Duke RN) 0509 (Given - Provider: Ju ferreira RN) 1 g = 1,000 mg, Intravenous, EVERY 8 JANETTE RS, 3 doses, First dose on Mon09/17/12 at 2115, Last dose on Mon09/18/12 at 1315, for 30 Minutes clopidogrel (PLAVIX) tablet 75 mg (CANCELED) 899 (Given - Provider: Bertin Bernabe RN) 75 mg, Oral, DAILY, First dose on Mon at 0900, Until Discontinued, Routine docusate sodium (COLACE) capsule 100 mg (CANCELED) 2143 (Given - Provider: Ju Duke RN) 0900 (Given - Provider: Bertin akers RN) 100 mg, Oral, 2 TIMES DAILY, First dose on Mon09/17/12 at 2115, Until Discontinued, Routine sodium chloride 0.9 % flush 5 mL (CANCELED) 2114 (Given - Provider: Ju Duke RN) 0915 (Given - Provider: Bertin akers RN) 5 mL, Intravenous, EVERY 12 HOURS, First dose on Mon09/17/12 at 2115, Until Discontinued, Routine Continuous Medication Order 09/16/2012 09/17/2012 09/18/2012 sodium chloride 0.9% 1,000 mL infusion (CANCELED) 1715 (New Bag - Provider: Ryland Adorno RN)1800 (Stopped - Provider: Raphael Nathan, LAURA) at 100 mL/hr, Intravenous, CONTINUOUS, S tarting Mon09/17/12 at 1715, Until Mon09/17/12 at 2051 sodium chloride 0.9% infusion (CANCELED) 1800 (New Bag - Provider: Raphael Nathan RN) 50 mL/hr, at 50 mL/hr, Intravenous, CONT INUOUS, Starting Mon09/17/12 at 1815, Until Mon09/18/12 at 0730 PRN Medication Order 09/16/2012 09/17/2012 09/18/2012 acetaminophen (TYLENOL) tablet 650 mg 23 34 (Given - Provider: Ju Duke RN) 650 mg, Oral, EVERY 6 HOURS PRN, Startin g Mon09/17/12 at 1754, Until Mon09/18/12 at 1235, Pain, Fever, Administer for temperature greater than or equal to 38.2 degrees celsius. Maximum daily dose of jess taminophen from all sources not to exceed 4,000 mg., Routine cellulose (fibrillar), oxidized (SURGICEL) 1 x 2 pad (CANCE LED) 1534 (Given - Provider: Andrew Genao MD) ONCE PRN, Starting Mon09/17/12 at 1534, Until Mon09/17/12 at 2049, Intra- Operative (Intra-Procedure), Routine gelatin adsorbable (GELFOAM) sponge (CANCELED) 1428 (Given - Provider: Andrew Genao MD) ONCE PRN, Starting Mon09/17/12 at 1428, For 1 dose, Intra-Operative (Intra-Procedure) heparin (porcine) injection (CANCELED) 1 417 (Given - Provider: Andrew Genao MD - Comment: mixed w/1,000mls normal saline IV on field for flushing) ONCE PRN, Starting Mon09/17/12 at 1417, Until Mon09/17/12 at 2049, Intra- Operative (Intra-Procedure), Routine HYDROmorphone (DILAUDID) injection 0.2-0.4 mg (CANCELED) 1654 (Given - Provider: Ryland Adorno RN)1707 (Given - Provider: Ryland Adorno RN) 0.2-0.4 mg, Intravenous, EVERY 5 MIN PRN , Starting Mon09/17/12 at 1611, Until Mon09/17/12 at 2022, Pain, For moderate pain give: 0.2 mg every 5 minute prn For severe pain give: 0.4 mg every 5 minutes pr n Maximum dose: 4 mg per hour Hold for r espiratory rate less than 10 per minute., PACU Recovery, Routine iodixanol (VISIPAQUE) 320 mg/mL injection (CANCELED) 1524 (Given - Provider: Andrew Genao MD - Comment: total 73 mls) ONCE PRN, Starting Mon09/17/12 at 1524, Until Mon09/17/12 at 2049, Per Protocol, Intra-Operative (Intra-Procedure), Routine OXYcodone (ROXICODONE) immediate release tablet 5 mg 5 mg, Oral, EVERY 4 HOURS PRN, Starting Mon09/17/12 at 1754, Until Tu09/18/12 at 1235, Pain, mild to moderate pain, May give additional 5 mg in 30 minutes times 1 if pain not relieved. , Routine thrombin (bovine) (THROMBIN-JMI) solution (CANCELED) 1428 (Given - Provider: Andrew Genao MD) ONCE PRN, Starting Mon09/17/12 at 1428, For 1 dose, Intra-Operative (Intra-Procedure) documented in this encounter
--- OUTSIDE RECORDS SUMMARY | 2022-05-23 17:35 | XMS_ITS | Encounter Summary ---
:1940 Author Organization [facility] [place] [address] Care Team Providers Name Role Phone Unavailable Primary Care Provider Unavailable Encounter Details Date Type Department Care Team Description 07/19/2011 Orders Only Vascular Surgery at Tracy Beltran An eurysm (Primary Dx) [facility] [place] [address] VASCULAR SURGERY [phone] [place], [place] [address] Social History Tobacco Use Types [...] as of this encounter Visit Diagnoses Diagnosis Aneurysm - Primary Aneurysm of unspecified site documented in this encounter
--- OUTSIDE RECORDS SUMMARY | 2022-05-23 17:35 | XMS_ITS | Encounter Summary ---
:1940 [place] [address] Care Team Providers Name Role Phone Unavailable Primary Care Provider Unavailable Encounter Details Date Type Department Care Team Description 07/26/[address] Scan at [facility] [place] [address] Social History Tobacco Use Types Packs/Day Years Used Date Former Smoker Smokeless Tobacco: Never Used Comments: quit 25 years ago Alcohol Use Standard Drinks/Week Comments Not Asked 0 (1 standard drink = 0.6 oz pure alcoho l) Sex Assigned at Date Recorded Not on file documented as of this encounter Medications at Time of Discharge Medication Sig Dispensed Refills Start Date End Date multivitamin (THERAGRAN) Take 1 tablet by 0 09/18/2012 tablet mouth daily. aspirin 325 mg EC tablet Take 81 mg by 0 03/05/20 09 08/20/2021 mouth. simvastatin (ZOCOR) 80 mg 80 MG = 1 0 03/05/2009 04/06/2021 tablet Tablet(s), PO, Once daily nitroGLYcerin (NITROSTAT) 0.4 mg, 0 03/05/2009 04/06/2021 0.4 mg SL tablet Sublingual, q 5min prn chest pain DOCOSAHEXANOIC ACID/EPA 0 03/05/2009 1 11/18/2011 (FISH OIL ORAL) Tliixxn-Hks-Asa 0 03/05/2009 2 N0-Ypzlav-Vf (CALCIMATE) Tab CHOLECALCIFEROL, VITAMIN 0 03/05/2009 09/18/2012 D3, (VITAMIN D-3 ORAL) clopidogrel (PLAVIX) 75 mg 75 MG = 1 0 9 08/20/2021 tablet Tablet(s), PO, Once daily documented as of this encounter Plan of Treatment Not on filedocumented as of this encounter Procedures Procedure Name Priority Date/Time Associated Diagnosis Comme nts CT ANGIOGRAM Routine 07/26/2011 3:22 PM Aneurysm of Results f or this ABDOMEN AND PELVIS EDT unspecified site proce dure are in W CONTRAST the results section. documented in this encounter Results CT ABDOMINAL AORTA ANEURYSM WITH CONTRAST (07/26/2011 3:22 PM EDT) Anatomical Region Laterality Modality Abdomen, Pelvis Computed Tomography Specimen (Source) Anatomical Collection Method Collection Time Re ceived Time Location / / Volume Laterality 07/26/2011 3:22 PM EDT Impressions 07/27/2011 9:19 AM EDT IMPRESSION: ?? 1. ??Interval increase in maximum calibe r of infrarenal abdominal aortic aneurysm, currently measuring 4.5 x 4 cm . 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 ??The entire left common iliac artery remains lobulated and dilat ed. ?? 2. ??Bilateral common femoral and final touch up painter al iliac arteries are patent. Narrative 07/27/2011 9:[address] ABDOMINAL AORTIC ANEURYSM: INDICATION: ??Enlarging abdominal aortic aneurysm, question progression. TECHNIQUE: ??Contrast-enhanced CT scan o f the abdomen and pelvis following the administration of 110 cc Omnipaque-350 i ntravenous contrast. ??3D volume-rendered and MIP images were refo rmatted on a separate workstation and reviewed as part of this study. COMPARISON: ??CT scan of the abdomen and pelvis performed as part of a runoff study March 09, 2009. FINDINGS: ??Imaged portions of lung base s show left lower lobe scarring. CONTRAST-ENHANCED CT SCAN OF THE ABDOMEN : ??Liver, gallbladder, pancreas, and spleen normal. ??Right and left adrenal glands and kidneys normal. ?? CONTRAST-ENHANCED CT SCAN OF THE PELVIS: ??Interval enlargement of the infrarenal abdominal aortic aneurysm cur rently measuring 4.4 x 4.5 cm compared to prior of 4 x 4.1 cm. ??This extends t o the aortic bifurcation. 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 ? ?Interval increase in transverse caliber of the proximal right common iliac arter y at its origin, currently measuring 15 mm compared to prior transverse caliber of 12 mm. ??Immediately distal to this, the [place] right common iliac artery sev erely narrows and at this level, a 13 mm pseudoaneurysm emanates posteromedial ly from this site. 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 This has enlarged from 12 mm two years ago. Right external iliac and common femoral arteries remain patent. ??Left external iliac and common femoral arteries are pa tent. ??The entire left common iliac artery again shows an irregular, somewha t lobulated contour and has slightly increased in transverse diameter from 14 to 15.5 mm. No free fluid. ??Loops of small and larg e bowel normal in caliber. Origins of superior mesenteric, celiac, and renal arteries are patent. Review of osseous structures shows mild loss of bone density and lumbosacral degenerative change. Procedure Note Caren Christianson MD - 07/27/2011 CT ABDOMINAL AORTIC ANEURYSM: INDICATION: Enlarging abdominal aortic a neurysm, question progression. TECHNIQUE: Contrast-enhanced CT scan of the abdomen and pelvis following the administration of 110 cc Omnipaque-350 i ntravenous contrast. 3D volume-rendered and MIP images were refo rmatted on a separate workstation and reviewed as part of this study. COMPARISON: CT scan of the abdomen and p mia performed as part of a runoff study March 09, 2009. FINDINGS: Imaged portions of lung bases show left lower lobe scarring. CONTRAST-ENHANCED CT SCAN OF THE ABDOMEN : Liver, gallbladder, pancreas, and spleen normal. Right and left adrenal gl ands and kidneys normal. CONTRAST-ENHANCED CT SCAN OF THE PELVIS: Interval enlargement of the infrarenal abdominal aortic aneurysm cur rently measuring 4.4 x 4.5 cm compared to prior of 4 x 4.1 cm. This extends to the aortic bifurcation. 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 I nterval increase in transverse caliber of the proximal right common iliac arter y at its origin, currently measuring 15 mm compared to prior transverse caliber of 12 mm. Immediately distal to this, the [place] right common iliac artery sev erely narrows and at this level, a 13 mm pseudoaneurysm emanates posteromedial ly from this site. 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 This has enlarged from 12 mm two years ago. Right external iliac and common femoral arteries remain patent. Left external iliac and common femoral arteries are pa tent. The entire left common iliac artery again shows an irregular, somewha t lobulated contour and has slightly increased in transverse diameter from 14 to 15.5 mm. No free fluid. Loops of small and large bowel normal in caliber. Origins of superior mesenteric, celiac, and renal arteries are patent. Review of osseous structures shows mild loss of bone density and lumbosacral degenerative change. IMPRESSION IMPRESSION: 1. Interval increase in maximum caliber of infrarenal abdominal aortic aneurysm, currently measuring 4.5 x 4 cm . 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 The entire left common iliac artery remains lobulated and dilat ed. 2. Bilateral common femoral and external iliac arteries are patent. Rubin Genao MD IMG CT ORDERABLES documented in this encounter Visit Diagnoses Diagnosis Aneurysm Aneurysm of unspecified site documented in this encounter Administered Medications Inactive Administered Medications - up to 3 most recent administrations Medication Order MAR Action Action Date Dose Rate Site iohexol (OMNIPAQUE) 350 mg/mL Given 07/26/2011 3:19 PM EDT 38,50 0 mg injection 38,500 mg 38,500 mg (110 mL), Intravenous, ONCE PRN, 1 dose, Starting on Mon07/26/11 at 1507, Until Mon07/26/11 at 1519, Per Protocol, Routine documented in this encounter
--- OUTSIDE RECORDS SUMMARY | 2022-05-23 17:35 | XMS_ITS | Encounter Summary ---
:1940 Author Organization [facility] [place] [address] Care Team Providers Name Role Phone Unavailable Primary Care Provider Unavailable Encounter Details Date Type Department Care Team Description 09/28/2012 Orders Only Vascular Surgery at Tiff Ornelas S/P ao rtic aneurysm [facility] RN repair (Primary Dx) [place] [address] Social History Tobacco Use Types Packs/Day Years [...] Not on filedocumented as of this encounter Results CT abdomen & pelvis WO contrast (01/29/2013 1:45 PM EDT) Anatomical Region Laterality Modality Abdomen, Pelvis Computed Tomography Specimen (Source) Anatomical Collection Method Collection Time Re ceived Time Location / / Volume Laterality 01/29/2013 1:45 PM EDT Narrative 01/29/2013 3:[address] Abdomen / Pelvis Without Contrast Clinical History With M2S f/u EVAR Comparison CTA abdomen and pelvis on 09/27/2012. Technique Helical images of the abdomen and pelvis were performed without intravenous or enteric contrast. ??Re-formatted at [facility] nal and sagittal views were obtained. Findings Lack of intravenous contrast limits the evaluation of potential endoleaks. ?? Lung bases: No consolidated airspace opacities or ef fusions. Mild bibasilar scarring is noted. ?? Abdomen: Again noted is the infrarenal ??abdomina l aortic aneurysm, with the stable [place] sac measuring 4.7 x 4.7 cm. The b ifurcated limbs of the endograft terminate in the common iliac arteries a nd are in stable position. Assessment of endoleak cannot be performed due to l ack of intravenous contrast in this examination. The unenhanced liver and ga llbladder are within normal limits. ?? The spleen, adrenal glands, kidneys, and pancreas are unremarkable. ??No abdominal adenopathy. Pelvis: No dilated loops of air-filled small or large bowel. No focal bowel wall thickening or soft tissue masses. ??No p elvic adenopathy or free fluid. Impression 1. Stable size of the [place] aneurysmal sac, measuring 4.7 x 4.7 cm. 2. Stable position of abdominal aortoili ac endograft. Film and interpretation reviewed by the attending Procedure Note Matthew Garcia MD - 01/29/2013Form atting of this note might be different from the original. Examination CT Abdomen / Pelvis Without Contrast Clinical History With M2S f/u EVAR Comparison CTA abdomen and pelvis on 09/27/2012. Technique Helical images of the abdomen and pelvis were performed without intravenous or enteric contrast. Re-formatted at deleon l and sagittal views were obtained. Findings Lack of intravenous contrast limits the evaluation of potential endoleaks. Lung bases: No consolidated airspace opacities or ef fusions. Mild bibasilar scarring is noted. Abdomen: Again noted is the infrarenal abdominal aortic aneurysm, with the stable [place] sac measuring 4.7 x 4.7 cm. The b ifurcated limbs of the endograft terminate in the common iliac arteries a nd are in stable position. Assessment of endoleak cannot be performed due to l ack of intravenous contrast in this examination. The unenhanced liver and ga llbladder are within normal limits. The spleen, adrenal glands, kidneys, and pancreas are unremarkable. No abdominal adenopathy. Pelvis: No dilated loops of air-filled small or large bowel. No focal bowel wall thickening or soft tissue masses. No pel jennifer adenopathy or free fluid. Impression 1. Stable size of the [place] aneurysmal sac, measuring 4.7 x 4.7 cm. 2. Stable position of abdominal aortoili ac endograft. Film and interpretation reviewed by the attending Rubin Genao MD IMG CT ORDERABLES documented in this encounter Visit Diagnoses Diagnosis S/P aortic aneurysm repair - Primary Other postprocedural status S/P aortic aneurysm repair Other postprocedural status documented in this encounter
--- OUTSIDE RECORDS SUMMARY | 2022-05-23 17:35 | XMS_ITS | Encounter Summary ---
:1940 Author Organization [facility] [place] [address] Care Team Providers Name Role Phone Unavailable Primary Care Provider Unavailable Reason for Visit - Closed Specialty Diagnoses / Procedures Referred By Contact Refer red To Contact Procedures Susana Israel PA Film Library- Storage Only DX [facility] Upper Extremity [place] [address] Referral ID Status Reason Start Date Expiration Date Visits Requ ested Visits Authorized [id number] Closed 04/02/2021 04/02/2022 1 1 Encounter Details Date Type Department Care Team Description 03/19/2021 Ancillary Procedure Radiology Library at Therese Perez [facility] [address] [address] [place] [address] [phone] Social History Tobacco Use Types Packs/Day Years [...] Name Priority Date/Time Associated Diagnosis Comme nts FILM LIBRARY Routine 03/19/2021 12:00 AM Results for this STORAGE ONLY DX EDT procedure ar e in UPPER EXTREMITY the results section. documented in this encounter Results Film Library- Storage Only DX Upper Extremity (03/19/2021 12:00 AM EDT) Specimen (Source) Anatomical Location Collection Method / Collectio n Time Received Time / Laterality Volume Narrative [facility] - 04/02/2021 7:52 AM EDT This exam is auto-finalizing. It's purpo se is for storage only. Radha Perez MD IMJulieth FILM LIBRARY ORDERABLES Performing Organization Address City/State/ZIP Code Phon e Number [place] [place], [place] documented in this encounter Visit Diagnoses Not on filedocumented in this encounter
--- OUTSIDE RECORDS SUMMARY | 2022-05-23 17:35 | XMS_ITS | Encounter Summary ---
:1940 Author Organization [facility] [place] [address] Care Team Providers Name Role Phone Unavailable Primary Care Provider Unavailable Reason for Visit Reason Comments Aneurysm (Aortic) S/P EVAR Encounter Details Date Type Department Care Team Description 09/27/2012 Office Visit Vascular Surgery at Rubin Genao MD AAA (abdominal aortic [facility] aneurysm) (Primary Dx) [facility] DR Bhakta VASCULAR SURGERY [place] [id number] [phone] Social History Tobacco Use Types Packs/Day Years [...] Sign Reading Time Taken Comments Blood Pressure 116/60 09/27/2012 1:33 PM EST Pulse 72 09/27/2012 1:33 PM EST Temperature - - Respiratory Rate - - Oxygen Saturation - - Inhaled Oxygen Concentration - - Weight 61.2 kg (135 lb) 09/27/2012 1:33 PM EST Height 157.5 cm (5' 2) 09/27/2012 1:33 PM EST Body Mass Index 24.69 09/27/2012 1:33 PM EST documented in this encounter Progress Notes Rubin Genao MD - 09/27/2012 1:37 PM EST Ms Gao returns in follow-up after EVAR. This was performed for a tender 4.5-cm AAA, on 09/17/2012 using a [place] Excluder. Her procedure and hospitalization were uncomplicated. She states she has been well since discharge. She states the abdominal pain she was experiencing is better On exam there is no pulsatile mass palpable. She has some slight mid abdominal tenderness which is less than preop. Her groins are healing well CTA shows the graft in good position. There are no leaks Overall Ms Gao is doing well. We will see her back in 6-mo documented in this encounter Plan of Treatment Not on filedocumented as of this encounter Visit Diagnoses Diagnosis AAA (abdominal aortic aneurysm) - Primar y Abdominal aneurysm without mention of ru pture documented in this encounter
--- OUTSIDE RECORDS SUMMARY | 2022-05-23 17:35 | XMS_ITS | Encounter Summary ---
:1940 [place] [address] Care Team Providers Name Role Phone Unavailable Primary Care Provider Unavailable Encounter Details Date Type Department Care Team Description 08/27/2012 Clinical Support Same Day at [facility] AAA (abdominal aortic [facility] aneurysm) [place] [address] Social History Tobacco Use Types Packs/Day Years Used Date Former Smoker Smokeless Tobacco: Never Used Comments: quit 25 years ago Alcohol Use Standard Drinks/Week Comments Not Asked 0 (1 standard drink = 0.6 oz pure alcoho l) Sex Assigned at Date Recorded Not on file documented as of this encounter Last Filed Vital Signs Vital Sign Reading Time Taken Comments Blood Pressure - - Pulse - - Temperature - - Respiratory Rate - - Oxygen Saturation - - Inhaled Oxygen Concentration - - Weight 62.1 kg (137 lb) 08/27/2012 3:55 PM EDT Height - - Body Mass Index 23.52 08/27/2012 3:06 PM EDT documented in this encounter Progress Notes Jessy Brush RN - 08/27/2012 4:24 PM EDT Patient Name: Peg Gao Patient Age: 71 y.o. Birthdate: 1940 Admit date: (Not on file) Attending Physician: No att. providers found Questionnaire reviewed with patient, has had cardiac surgery done here in the past with no complications. States she sometimes has indigestion from spicy or fatty foods but this resolves if she has a peppermint. No other health concerns, no current CP or BLACK. Pre-op folder discussed, labs drawn, EKG done and sent for CXR. Patient verbalizes understanding of all information. Surgery is not booked at this time. Call her home phone of [phone] for pre-op phone call, answering machine is fine to leave a message. documented in this encounter Plan of Treatment Not on filedocumented as of this encounter Procedures Procedure Name Priority Date/Time Associated Diagnosis Comme nts XR CHEST PA AND Routine 08/27/2012 4:47 PM Abdominal aneurysm Results for this LATERAL EDT without mention of procedure are in rupture the results section. documented in this encounter Results XR CHEST ROUTINE PA & LATERAL (08/27/2012 4:47 PM EDT) Anatomical Region Laterality Modality Chest N/A Radiographic Imaging Specimen (Source) Anatomical Collection Method Collection Time Re ceived Time Location / / Volume Laterality 08/27/2012 4:47 PM EDT Narrative 08/27/2012 4:55 PM EDT Examination CHEST ROUTINE PA+LAT Clinical History pre-op Comparison 11/10/2008. Technique PA and lateral views of the chest. Findings The lungs appear clear. ??The heart, med iastinum, parris, pulmonary vessels and pleura are within normal limits. ??Note the presence of a coronary stent. No significant interval osseous findings ar e noted. ?? Impression No active cardiopulmonary pathology. ??N o significant change of 11/10/2008. Procedure Note Marifer Nix MD - 08/27/2012Formatt ing of this note might be different from the original. Examination CHEST ROUTINE PA+LAT Clinical History pre-op Comparison 11/10/2008. Technique PA and lateral views of the chest. Findings The lungs appear clear. The heart, media stinum, parris, pulmonary vessels and pleura are within normal limits. Note th e presence of a coronary stent. No significant interval osseous findings ar e noted. Impression No active cardiopulmonary pathology. No significant change of 11/10/2008. Rubin Genao MD IMG DX ORDERABLES documented in this encounter Visit Diagnoses Diagnosis AAA (abdominal aortic aneurysm) Abdominal aneurysm without mention of ru pture documented in this encounter
--- OUTSIDE RECORDS SUMMARY | 2022-05-23 17:35 | XMS_ITS | Encounter Summary ---
:1940 Author Organization [facility] [place] [address] Care Team Providers Name Role Phone Unavailable Primary Care Provider Unavailable Encounter Details Date Type Department Care Team Description 01/29/[address] Scan [place] [facility] [place] S/P aortic aneurysm [facility] [place] [address] Social History Tobacco Use Types Packs/Day Years [...] hours as needed for Pain and Fever. Gary-3 Fatty Acids (FISH Take 1 capsule by 0 04/201204/06/2021 OIL) 500 mg CpDR mouth daily. multivitamin (THERAGRAN) Take 1 tablet by 0 09/1808/20/2021 tablet mouth daily. cholecalciferol, Vitamin Take 1 tablet by 0 09/1804/06/2021 D3, (VITAMIN D-3) 400 unit mouth daily. tablet Kbiyhqj-Cqw-Gqr Take 1 tablet by 0 09/18/2012 P3-Ebgeud-Xa (CALCIMATE) mouth daily. Tab aspirin 325 mg [...] Priority Date/Time Associated Diagnosis Comme nts CT ABDOMEN AND Routine 01/29/2013 1:45 PM S/P aortic aneurysm Results for this PELVIS WO CONTRAST EDT repair procedure are in the results section. documented in this encounter Results CT abdomen & pelvis [...] without intravenous or enteric contrast. ??Re-formatted at [facility] nal and sagittal views were obtained. Findings Lack of intravenous contrast limits the evaluation of potential endoleaks. ?? Lung bases: No consolidated airspace opacities or ef fusions. Mild bibasilar scarring is noted. ?? Abdomen: Again noted is the infrarenal ??abdomina l aortic aneurysm, with the stable [place] sac measuring 4.7 x 4.7 cm. The [...] fluid. Impression 1. Stable size of the ruby aneurysmal sac, measuring 4.7 x 4.7 cm. [...] infrarenal abdominal aortic aneurysm, with the stable ruby sac measuring 4.7 x 4.7 cm. The [...] fluid. Impression 1. Stable size of the ruby aneurysmal sac, measuring 4.7 x 4.7 cm. 2. Stable position of abdominal aortoili ac endograft. Film and interpretation reviewed by the attending Rubin Genao MD IMG CT ORDERABLES documented in this encounter Visit Diagnoses Diagnosis S/P aortic aneurysm repair Other postprocedural status documented in this encounter
--- OUTSIDE RECORDS SUMMARY | 2022-05-23 17:35 | XMS_ITS | Encounter Summary ---
:1940 [place] [address] Care Team Providers Name Role Phone Unavailable Primary Care Provider Unavailable Encounter Details Date Type Department Care Team Description 09/17/2012 Anesthesia Event Main Operating Room Jaime Reeder MD [facility] [place] [address] [facility] [place] [address] [place] [address] Anesthesia Record Procedure Summary Procedure Name Responsible Anesthesia Start Anesthesia Stop Anesthesiologist Time Time @EVG, BIFURCATED Jaime García MD 09/17/12 1249 09/17/12 1 556 MODULAR AORTIC, W ONE DOCKING LIMB, ANEURX (WRVU 23.79) (N/A Abdomen) Events Date Time Event Comment 09/17/2012 1246 1249 Start 1556 Stop No medications on file. Agents No agents on file. Blood No blood administrations on file. Lines, Drains, and Airways Type Details Placement Removal Incision 09/17/12; groin 09/17/12 0000 by Chichi Franklin RN Incision 09/17/12; groin 09/17/12 0000 by Chichi Franklin RN Urethral Catheter 09/17/12; indwelling 09/17/12 0000 by Rigoberto, 07/03 1404 by double lumen catheter; Chichi Capone RN ProTimothy celaya RN silastic; 16; inserted; 1; drainage bag to dependent drainage; LDA not present upon assessment; 08/20/21; 1404 PIV 09/17/12; 1228; 09/17/12 1228 by 02/26/18 0921 b y 02/26/18 (Auto removal Jocelyne Geiger RN Epic, User via utility); 0921 (Auto removal via utility) PIV 09/17/12; 1304; 09/17/12 1304 by 02/26/18 0921 b y 02/26/18 (Auto removal Michael Ferrer CRNA Ep ic, User via utility); 0921 (Auto removal via utility) (RETIRED) Arterial 20; 1.88 09/17/12 1320 by 09/17/12 195 9 by Michael Hoang CRNA Reiss, To bias LAURA Chong documented in this encounter Social History Tobacco Use Types Packs/Day Years [...] on file documented as of this encounter OR Notes Anesthesia Postprocedure Evaluation - Jaime García MD - 09/17/2012 5:07 PM EST Patient: Peg Gao Procedure(s) Performed: Procedure(s): @EVG, BIFURCATED MODULAR AORTIC, W ONE DOCKING LIMB, ANEURX @EVG-PLACEMENT, CUFF OR EXT. AORTIC OR ILIAC ANEURYSM REPAIR, GORE @EVG, INFRARENAL AAA OR DISSECTION, S&I @PLACE EXT EVG INTRARENAL AORTIC\ILIAC ARTERY ANEURYSM, S&I @EXPOSURE, OPEN FEM. ARTERY FOR ENDOVASCULAR PROSTHESIS, GROIN-ZOIE Patient location: PACU Post-op pain: Adequate analgesia Post-op nausea: no nausea or vomiting Last Vitals: Filed Vitals: 09/17/12 1700 BP: 139/75 Pulse: 72 Temp: Resp: 16 Post-op cardiovascular and respiratory status: is stable Level of consciousness: awake Complications: tolerated the procedure well Fluid Status: normal Anesthesia Preprocedure Evaluation - Jaime García MD - 09/16/2012 2:45 PM EST Today I evaluated Peg Gao a 71 y.o. female. Procedure(s): @EVG, BIFURCATED MODULAR AORTIC, W ONE DOCKING LIMB, ANEURX Patient Active Problem List Diagnoses ??? AAA (abdominal aortic aneurysm) ??? CAD (coronary artery disease) 2003: Sp RCA stent ??? Former smoker Quit 1979 ??? Hyperlipidemia ??? Hypertension ??? Bladder prolapse S/p surgical correction ??? Status post partial hysterectomy No past medical history on file. No past surgical history on file. History Substance Use Topics ??? Smoking status: Former Smoker ??? Smokeless tobacco: Never Used Comment: quit 25 years ago ??? Alcohol Use: Not on file Allergies Allergen Reactions ??? Latex Rash Skins montemayor and becomes itchy. Medications: MAR and/or home medications have been reviewed. Physical Exam: There were no vitals filed for this visit. There is no height or weight on file to calculate BMI. Anesthesia Physical Exam Anesthesia Plan: ASA 3 General with intravenous induction Very pleasant 71yo 61kg F with 4.7cm infrarenal AAA scheduled for endovascular repair. S/p RCA stents x2, last 2007. HTN, HLD, Essentially asymptomatic and active - housework, stairs, dancing, yard work etc.Plan for GA with ETT,second good PIV, and arterial line. Denies MESHA, GERD, or RAD, remote smoking Hx, morning cough - chronic Informed Consent: Anesthetic plan and risks discussed with patient and spouse. Plan discussed with ORGANIZATIONAL EFFECTIVENESS CONSULTANT. [facility]. Assessment: documented in this encounter Miscellaneous Notes Addendum Note - Debbie Piper - 09/18/2012 9:34 AM EST Addendum created 09/18/12 0934 by Debbie Sharif edited:Anesthesia Events, Anesthesia Responsible Staff documented in this encounter Plan of Treatment Not on filedocumented as of this encounter Visit Diagnoses Not on filedocumented in this encounter
--- OUTSIDE RECORDS SUMMARY | 2022-05-23 17:35 | XMS_ITS | Encounter Summary ---
:1940 Author Organization [facility] [place] [address] Care Team Providers Name Role Phone Radha Perez MD Primary Care Provider Reason for Referral Diagnostic Test (Routine) - Closed Specialty Diagnoses / Procedures Referred By Contact Refer red To Contact Radiology Diagnoses Adhesive capsulitis of right shoulder Susana Israel PA [facility] Rad Xray Procedures XR Fluoro Guided Joint Injection Large Right [address] [place] [address] [place] [address] Referral ID Status Reason Start Date Expiration Date Visits V isits Requested Authorized [id number] Closed Specialty 04/06/2021 10/07/2022 1 1 Service Requested Reason for Visit Reason Comments Establish Care CHRONIC B/L SHOULDER; RT>LT Consultation (Routine) - Closed Specialty Diagnoses / Procedures Referred By Contact Refer red To Contact Orthopaedics Diagnoses Pain in right shoulder CHRONIC B/L SHOULDER; RT>LT Radha Perez MD [facility] [address] [place] [address] [place] [address] Fax: Referral ID Status Reason Start Date Expiration Date Visits V isits Requested Authorized [id number] Closed Consult, Test 03/31/2021 03/31/2022 6 [facility] PCP Updated and/or Approved Encounter Details Date Type Department Care Team Description 04/06/2021 Office Visit Orthopaedics at [facility] Susana Israel Adhesive capsulitis [facility] MICHAEL [place] [address] [place] [address] ORTHOPAEDIC SURGERY [place], [place] [address] Social History Tobacco Use Types [...] Sign Reading Time Taken Comments Blood Pressure 108/72 04/06/2021 1:00 PM EDT Pulse 73 04/06/2021 1:00 PM EDT Temperature - - Respiratory Rate - - Oxygen Saturation - - Inhaled Oxygen Concentration - - Weight 64.4 kg (142 lb) 04/06/2021 1:00 PM EDT reported Height 154.9 cm (5' 1) 04/06/2021 1:00 PM EDT Body Mass Index 26.83 04/06/2021 1:00 PM EDT documented in this encounter Progress Notes Susana Israel PA - 04/06/2021 1:00 PM EDT PATIENT NAME: Peg Gao AGE: 80 y.o. MR#: [id number] DATE OF VISIT: 04/06/2021 DATE OF INJURY/ONSET: January 2021 STAFF: Dr. Gaytan CHIEF COMPLAINT: R>L shoulder pain HISTORY OF PRESENT ILLNESS: Ms. Gao is a right hand dominant 80 y.o. female who comes into clinic today for evaluation of the bilateral shoulders. She states her symptoms have been present for 2 to 3months. She states her left shoulder symptoms are more tolerable, but she is concerned about worsening symptoms in her right shoulder. She states she suddenly developed pain in her shoulder while she was in [place]. She denies having any major trauma to her arms. She has noticed some pain at night, but typically her symptoms are improved at rest. She finds that she has a significant increase in pain when she attempts to perform overhead range of motion. She has been taking Tylenol and is using Biofreeze as needed. She states she had a cortisone injection recently and at best noted some pain relief the day of the injection, but no long-term improvement. She has not had any shoulder surgeries. Medications and Allergies were reviewed in eD-H PAST MEDICAL HX: Past Medical History: Diagnosis Date ??? AAA (abdominal aortic aneurysm) 03/08/2011 ??? Bladder prolapse 11/10/2008 ??? CAD (coronary artery disease) 11/10/2008 ??? Former smoker 11/10/2008 ??? Hyperlipidemia 11/10/2008 ??? Hypertension 11/10/2008 ??? Status post partial hysterectomy 11/10/2008 PAST SURGICAL HX: Past Surgical History: Procedure Laterality Date ??? PRG PLACEMENT EXTENSION PRGSTHESIS FOR ENDOVASC REPAIR AAA 09/17/2012 @PLACE EXT EVG INTRARENAL AORTIC\ILIAC ARTERY ANEURYSM, [facility] ??? PRO AAA REPAIR, 1ST VESSEL, EXTENSION PROSTH 09/17/2012 @EVG-PLACEMENT, CUFF OR EXT. AORTIC OR ILIAC ANEURYSM REPAIR, GORE performed by ANDREW JAMES at [facility] OR ??? PRO AAA REPAIR, MODULR BIFURCATED PROSTH 09/17/2012 @EVG, BIFURCATED MODULAR AORTIC, W ONE DOCKING LIMB, ANEURX performed by ANDREW JAMES at [facility] OR ??? PRO AAA REPR, EXPOSE FEMORAL ART, GROIN INCIS 09/17/2012 @EXPOSURE, OPEN FEM. ARTERY FOR ENDOVASCULAR PROSTHESIS, GROIN-ZOIE performed by ANDREW JAMES at [facility] OR ? ? PRO ENDOVASC REPAIR INFRARENAL AAA/DISSECTION S&I 09/17/2012 @EVG, INFRARENAL AAA OR DISSECTION, S&I performed by ANDREW JAMES at [facility] OR FAMILY HX: No family history on file. SOCIAL HX: Social History Occupational History ??? Not on file Tobacco Use ??? Smoking status: Former Smoker Packs/day: 1.00 Years: 20.00 Pack years: 20.00 Types: Cigarettes ??? Smokeless tobacco: Former User Quit date: 11/13/1982 ??? Tobacco comment: quit 25 years ago Substance and Sexual Activity ??? Alcohol use: Yes Comment: Occasionally ??? Drug use: No ??? Sexual activity: Yes Partners: Male ROS: Pertinent items are noted in HPI. General Health, Prior Treatments, PreExisting Condition, Health Habits, About You 04/06/2021 PROMIS-10 General Health Good PROMIS-10 Quality of Life Very Good PROMIS-10 Physical Health Very Good PROMIS-10 Mental Health Very Good PROMIS-10 Social Activity Very Good PROMIS-10 Everyday Activities Completely PROMIS-10 Pain 6 PROMIS-10 Fatigue None PROMIS-10 Social Roles Good PROMIS-10 Anxious or Depressed Never PROMIS PHYSICAL SCORE (range 16-68) 54.1 PROMIS MENTAL SCORE (range 21-68) 56 Treatments Tried Regular exercise, Heat and ice therapy, Walking aids (e.g.cane, walker), Medicines applied on the skin (topical), Acetaminophen (e.g. Tylenol), Injection of steroids or cortisone Alzheimers or dementia No Cirrohosis or liver disease No HIV/AIDS No Pain in more than one joint in legs Yes Back or neck pain No Heart attack Yes Heart failure No Unclog/bypass leg arteries Yes Stroke, blood clot, TIA No Asthma No Emphysema, chronic bronchities, or COPD No Stomach ulcers/peptic ulcer disease No Diabetes No Poor kidney function No Rheumatic condtions No Cancer No Height (Inches) 2 BMI Incomplete Ever used tobacco products Yes Tobacco frequency Never WHO - Tobacco Advice 0 (You are at low risk of health and other problems from your current pattern of use.) Ever used alcoholic beverages No Live Alone No Marital situation Schooling Some high school, but did not graduate # People Supported 2 Race White Health Literacy Extremely Currently working No Not working because: Retired [employer] Response 04/06/2021 ASES VAS-RIGHT 6 ASES VAS-LEFT 3 ASES ADL-RIGHT ARM 10 ASES ADL-LEFT ARM 23 ASES RIGHT ARM 36.66 ASES LEFT ARM 73.33 No flowsheet data found. PHYSICAL EXAM: Ms. Gao is a 80 y.o. female who is in no apparent distress, alert and cooperative. Inspection: She denies having any erythema, ecchymosis, or swelling over the bilateral shoulders Palpation: She has pain along the lateral aspects of her upper arms. Her right shoulder is more symptomatic. ROM: She is able to perform active forward flexion to 145 degrees on the left. On the right her active and passive forward flexion is to about 100 degrees. She has pain with any attempted passive rangeof motion past this range. Her active and passive external rotation with her arm at her side is to 30 degrees. Internal rotation is to T10 on the left and PSIS on the right. Strength: She has pain related weakness with rotator cuff testing on the right. Her strength remainsintact on the left, but she does have some pain with resisted shoulder range of motion. Neurovascular: Intact motor function of the radial, median, ulnar, axillary and musculocutaneous nerves. Intact sensation along radial, median, ulnar, axillary, and lateral antebrachial cutaneous nervedistributions. Good hand perfusion. DIAGNOSTIC STUDIES: X-rays of the bilateral shoulders were personally reviewed. No acute fractures or dislocations are noted. She has intact glenohumeral joint space. There is some mild acromioclavicular joint arthritis ASSESSMENT: Right greater than left shoulder pain, right shoulder adhesive capsulitis PLAN: I reviewed the x-rays with the patient today. She has very minimal arthritic changes in her shoulders. She has pain and stiffness in her right shoulder that would be consistent with early adhesive capsulitis. She did not notice much pain relief after her subacromial injection. She would like to try a fluoroscopy guided glenohumeral injection to see if this might provide better pain relief. We also discussed that physical therapy could be helpful. She states that she would prefer to work on a home exercise program. If she needs a referral for physical therapy we can provide this in the future.If the injection is helpful she could repeat these in the future if needed. Her also asked about whether screening for Lyme or performing an MRI would be of benefit. If she is not improving after the injection she will contact us for follow-up and we can discuss whether any additional work-up would be recommended. She does not feel that her shoulder symptoms on the left side would require anytreatment, but if this changes she will also notify us. The patient understands to contact us if they have any other questions or concerns. The above documentation was completed using [employer] voice recognition software. documented in this encounter Plan of Treatment Not on filedocumented as of this encounter Results XR Fluoro Guided Joint Injection Large Right (04/27/2021 11:19 AM EDT) Anatomical Region Laterality Modality Right Radio Fluoroscopy Specimen (Source) Anatomical Location Collection Method / Collectio n Time Received Time / Laterality Volume Impressions 04/27/2021 1:36 PM EDT Uneventful right shoulder GH joint injection under fluoroscopy. Resident/Fellow: None Attending: There was no attending presen t for this procedure Procedure performed by REEMA Bobo RN Thank you for letting us participate in the care of this patient. ??If you are a health care provider and have any questi ons regarding this report, please contact the number below. ??For patients who have questions please contact the health child day care provider that requested your imaging first. ? Narrative 04/27/2021 1:36 PM EDT HISTORY: Right shoulder pain RIGHT SHOULDER GH JOINT INJECTION UNDER FLUOROSCOPY TECHNIQUE: After an extensive conversation with the patient regarding risks and benefits, oral and written consent were obtained.? A pre- procedural time-out was performed, including review of the patie nt's relevant electronic medical record and allergies, as per [facility] protocol. The patient was placed supine on the flu oroscopic table. ??The skin overlying the right anterior shoulder was prepped and draped in the usual aseptic manner. 1% Lidocaine was used to achieve local anes thesia. Under fluoroscopic guidance, 22 gauge 1.5 inch needle was advanced into the joint space. ??Small amount of air was injected to document needle placemen t. ??A mixture of Ropivacaine and Depo-medrol was injected. All needles re moved at end of procedure. FINDINGS: 1. ??Small amount of injected air in the right shoulder joint space. 2. ??PAIN SCORE: ??Before: 10 ??After: 12/23 3. Fluoroscopy time: 0.05 minutes 4. Medications: ??Lidocaine 1% - <5 ml, for subcutaneou s anesthesia ??Ropivacaine HCL ??0.5% - 4 ml ??Triamciolone Acetonide ??- 40 mg COMPLICATIONS: ??None immediate. POST-PROCEDURE CARE: Information regardi ng monitor of infection, post- procedural pain and management of steroi d flare were reviewed with patient. Procedure Note Lucille Ferrer, ANNIKA - 04/27/2021Forma tting of this note might be different from the original. HISTORY: Right shoulder pain RIGHT SHOULDER GH JOINT INJECTION UNDER FLUOROSCOPY TECHNIQUE: After an extensive conversation with the patient regarding risks and benefits, oral and written consent were obtained.? A pre- procedural time-out was performed, including review of the patie nt's relevant electronic medical record and allergies, as per [facility] protocol. The patient was placed supine on the flu oroscopic table. The skin overlying the right anterior shoulder was prepped and draped in the usual aseptic manner. 1% Lidocaine was used to achieve local anes thesia. Under fluoroscopic guidance, 22 gauge 1.5 inch needle was advanced into the joint space. Small amount of air was injected to document needle placemen t. A mixture of Ropivacaine and Depo-medrol was injected. All needles re moved at end of procedure. FINDINGS: 1. Small amount of injected air in the r ight shoulder joint space. 2. PAIN SCORE: Before: 10 After: 12/23 3. Fluoroscopy time: 0.05 minutes 4. Medications: Lidocaine 1% - <5 ml, for subcutaneous anesthesia Ropivacaine HCL 0.5% - 4 ml Triamciolone Acetonide - 40 mg COMPLICATIONS: None immediate. POST-PROCEDURE CARE: Information regardi ng monitor of infection, post- procedural pain and management of steroi d flare were reviewed with patient. IMPRESSION Uneventful right shoulder GH joint injec tion under fluoroscopy. Resident/Fellow: None Attending: There was no attending presen t for this procedure Procedure performed by REEMA Bobo RN Thank you for letting us participate in the care of this patient. If you are a health care provider and have any questi ons regarding this report, please contact the number below. For patients w ho have questions please contact the health child day care provider that requested your imaging first. Margo Gaytan MD IMG FLUORO ORDERABLES documented in this encounter Visit Diagnoses Diagnosis Adhesive capsulitis of right shoulder Adhesive capsulitis of shoulder Adhesive capsulitis of right shoulder Adhesive capsulitis of shoulder documented in this encounter Care Teams Service Tech/Welder Relationship Specialty Start Date End Date Radha Perez MD PCP - General General Internal Medicine 03/31/21 [address] [place] [address] documented as of this encounter
--- OUTSIDE RECORDS SUMMARY | 2022-05-23 17:35 | XMS_ITS | Encounter Summary ---
:1940 Author Organization [facility] [place] [address] Care Team Providers Name Role Phone Unavailable Primary Care Provider Unavailable Encounter Details Date Type Department Care Team Description 02/25/2011 External Results V[facility] [place] [facility] Rubin Genao MD [facility] Dianelys smith [facility] [place] [address] VASCULAR SURGERY [phone] [place] [id number] (Wo rk) Social History Tobacco Use Types Packs/Day Years Used Date Never Assessed Sex Assigned at Date Recorded Not on file documented as of this encounter Plan of Treatment Not on filedocumented as of this encounter Visit Diagnoses Not on filedocumented in this encounter
--- OUTSIDE RECORDS SUMMARY | 2022-05-23 17:35 | XMS_ITS | Encounter Summary ---
:1940 Author Organization [facility] Address [facility] [address] [place] [address] Care Team Providers Name Role Phone Unavailable Primary Care Provider Unavailable Encounter Details Date Type Department Care Team Description 08/27/2012 Hospital Encounter XRay at [facility] DR [place] [address] [place] [address] Rubin Infante MD [facility] [place] [address] [place] [address] Social History Tobacco Use Types Packs/Day Years [...] 0 03/05/2009 1 11/18/2011 (FISH OIL ORAL) [id number] 0 03/05/2009 2 [id number] (CALCIMATE) Tab CHOLECALCIFEROL, VITAMIN 0 03/05/2009 09/18/2012 D3, (VITAMIN D-3 ORAL) clopidogrel (PLAVIX) 75 mg 75 MG = 1 0 9 08/20/2021 tablet Tablet(s), PO, Once daily documented as of this encounter Miscellaneous Notes Miscellaneous - Provider, Scanning - 08/31/2012 9:30 AM EDT documented in this encounter Plan of Treatment Not on filedocumented as of this encounter Visit Diagnoses Not on filedocumented in this encounter
--- OUTSIDE RECORDS SUMMARY | 2022-05-23 17:35 | XMS_ITS | Encounter Summary ---
:1940 Author Organization [place] [address] Care Team Providers Name Role Phone Unavailable Primary Care Provider Unavailable Reason for Visit Reason Comments Follow-up Encounter Details Date Type Department Care Team Description 01/29/2013 Follow-Up Vascular Surgery at Rubin Genao MD AAA (abdominal aortic [facility] aneurysm) (Primary Dx) [facility] DR Bhakta [place] [address] [place] [address] [phone] (Wo rk) Social History Tobacco Use Types [...] Sign Reading Time Taken Comments Blood Pressure 141/80 01/29/2013 2:02 PM EDT Pulse 60 01/29/2013 2:02 PM EDT Temperature - - Respiratory Rate - - Oxygen Saturation - - Inhaled Oxygen Concentration - - Weight 61.2 kg (135 lb) 01/29/2013 2:02 PM EDT Height 157.5 cm (5' 2) 01/29/2013 2:02 PM EDT Body Mass Index 24.69 01/29/2013 2:02 PM EDT documented in this encounter Progress Notes Rubin Genao MD - 01/29/2013 2:26 PM EDT Ms Gao returns in follow-up after EVAR. This was performed for a tender 4.5-cm AAA, on 09/17/2012 using a Jud[place]ia Excluder. Her procedure and hospitalization were uncomplicated. She returned for her one month follow-up and had a normal CTA and no complaints. She returns now however stating she is still having upper abdominal pain when she has sex (which she had preop). She states that recently she alsotook nitro for some chest pain. On exam there is no pulsatile mass palpable, but she is quite tender over the AAA sac. Her groins are healing well CT shows the graft in good position with some shrinkage of her AAA I am not sure why Ms Gao is once again experiencing abdominal pain with associated AAA tenderness.There seems to be some association with sexual activity. Her AAA repair appears fine and I do not believe this is in jepordy or causing the pain. I have asked her to call Dr Vidal (her stripper cutter machine) about the recent chest pain. I will see her back in clinic in 2 months to follow-up on her symptoms and obtain an aortic duplex documented in this encounter Miscellaneous Notes Addendum Note - Asher Najera RN - 01/30/2013 8:21 AM EDT Addended by: ASHER NAJERA on: 01/30/2013 08:21 AM Modules accepted: Orders documented in this encounter Plan of Treatment Not on filedocumented as of this encounter Visit Diagnoses Diagnosis AAA (abdominal aortic aneurysm) - Primar y Abdominal aneurysm without mention of ru pture documented in this encounter
--- OUTSIDE RECORDS SUMMARY | 2022-05-23 17:35 | XMS_ITS | Encounter Summary ---
:1940 Author Organization [facility] [place] [address] Care Team Providers Name Role Phone Radha Perez MD Primary Care Provider Reason for Visit Consultation (Routine) - Closed Specialty Diagnoses / Procedures Referred By Contact Refer red To Contact Rheumatology Diagnoses worsening arm and leg pain, evaluating for PMR Radha Perez MD [facility] Procedures consult and treat [address] [place] [address] [place] [address] Fax: Referral ID Status Reason Start Date Expiration Date Visits Requ ested Visits Authorized [id number] Closed 07/08/2021 07/08/2022 1 1 Encounter Details Date Type Department Care Team Description 07/16/2021 Office Visit Rheumatology at [facility] [place] Roberto Gómez PMR ([facility] rheumatica) [place] [address] [facility] [phone] RHEUMATOLOGY DEPT. [place], [place] [address] Social History Tobacco Use Types [...] Sign Reading Time Taken Comments Blood Pressure 157/72 07/16/2021 11:09 AM EDT Pulse 69 07/16/2021 11:09 AM EDT Temperature 36.5 ??C (97.7 ??F) 07/16/2021 11:09 AM EDT Respiratory Rate 18 07/16/2021 11:09 AM EDT Oxygen Saturation 98% 07/16/2021 11:09 AM EDT Inhaled Oxygen Concentration - - Weight 65.9 kg (145 lb 3.2 oz) 07/16/2021 11:09 AM EDT Height 154.9 cm (5' 1) 07/16/2021 11:09 AM EDT Body Mass Index 27.44 07/16/2021 11:09 AM EDT documented in this encounter Patient Instructions Patient InstructionsJose Roberto Gómez MD - 07/16/2021 11:00 AM EDT 1. Labs today to evaluate polymyalgia rheumatica (PMR) 2. Prednisone 3t a day for 1 week then 2 t daily thereafter 3. Follow up Ms Tadeo in 4 weeks documented in this encounter Progress Notes Jose Roberto Gómez MD - 07/16/2021 11:00 AM EDT 1. Labs today to evaluate polymyalgia rheumatica (PMR) 2. Prednisone 3t a day for 1 week then 2 t daily thereafter 3. Follow up Ms Tadeo in 4 weeks Jose Roberto Gómez MD - 07/16/2021 11:00 AM EDT Subjective: Patient ID: Peg Gao is a 80 y.o. female who is referred for 4 months of muscle and joint aching. She has a past history of ASCVD and is status post stenting x2 in 2007. HPI The patient is 80 years old and has lived in [place] her entire life, currently in [facility]. She is a former smoker with a history of cardiovascular disease that has been relatively inactive thesepast 8 years. She reports that in 2019 she felt very well but is a little vague about when things changed in 2020. It seems that she had a gradual progression muscle and joint pain most definitively involving her shoulders and limiting her ability to wash her hair and brush her hair. She is a little vague about exactly when this happened but she received a right shoulder subacromial space injection in early March 2021, with short benefit. Subsequently it returned in her right shoulder within the monthand her left shoulder continued to trouble her all this time. She reports perhaps some mild improvement with activity but her shoulders have been markedly limiting her all this time. Other joints involved appear to be the proximal musculature in the hips as well as the hip joints themselves. She is also noticed recently difficulty going up stairs and getting up from a chair. There has been no hand pain or stiffness worth noting and she reports that if you can make my shoulders better everything would be great There is no history of headaches change in vision change in chewing chest pain shortness of breath. Review of Systems Constitutional: No fevers, chills, malaise other than that due to chronic pain in her shoulders.. Skin: no rashes HEENT: no sicca sx, change in hearing, taste sinus pain, SPRING, change in taste. Respiratory: no chest pain, shortness of breath CV: no BLACK, angina sx, claudication Back: No sciatica, pain with standing GI: no abd pain, normal bowel movements : no dysuria, normal voiding, no nocturia Neuro: no focal deficit Patient Active Problem List Diagnosis Code ??? CAD (coronary artery disease) I25.10 ??? Former smoker Z87.891 ??? Hyperlipidemia E78.5 ??? Hypertension I10 ??? Bladder prolapse [id number] ??? Status post partial hysterectomy Z90.711 ??? AAA (abdominal aortic aneurysm) I71.4 History of diverticulitis also reported. Social history: and remarried 3 kids former smoker Objective: Physical Exam BP 157/72 Pulse 69 Temp 36.5 ??C (97.7 ??F) (Temporal) Resp 18 Ht 154.9 cm (5' 1) Wt 65.9kg (145 lb 3.2 oz) SpO2 98% BMI 27.44 kg/m?? Patient is a little vague in her history. HEENT: Nontender temporal arteries sinuses. No adenopathy. Neck: Decreased rotation to the left otherwise normal. I did not hear a bruit Chest: Clear slight decrease in air movement Cardiac exam: Normal rate and rhythm 1-2/6 systolic ejection murmur at upper right sternal border Abdomen normal bowel sounds no bruits Extremities 1+ edema the lower extremities with tenderness to palpation in the anterolateral and posterior calves. Joint exam: Shoulders marked impingement decreased elevation both in 90 degrees or less. Elbows: Normal Wrists: Normal Hands: Normal Hips: 90 degrees of flexion 15 to 20 degrees of external rotation and 5 to 10 degrees of internal rotation Knees: Moderate sized effusion on the right with tenderness on the medial joint line. Small effusionon the left without tenderness there is full range of motion. Ankles: Normal Feet: Normal no tenderness to MTP compression. Assessment and Plan: The presentation and diagnosis are most consistent with polymyalgia rheumatica occurring in a patient with vascular disease including prior MIs as well as a AAA. There is no history to suggest giant cell arteritis. There is no hand or foot involvement to suggest that this is a seronegative rheumatoid arthritis. This is a pretty straightforward presentation and we will first document the response to low doses of prednisone followed by a gradual taper of 1 mg/month if she has a complete response. She has expressed some fears about prednisone because it makes people gain weight. I assured her there were no alternatives to prednisone in the treatment of polymyalgia rheumatica. There is some attendant knee osteoarthritis right greater than left, oftentimes the osteoarthritis component of the knee pain is enhanced by concurrent inflammation such as PMR. We will follow this and decide whether this needs injection at some point. I introduced her to Ms. Tadeo our nurse practitioner who will be following up with the patient. 1. Labs today to evaluate polymyalgia rheumatica (PMR) 2. Prednisone 3t a day for 1 week then 2 t daily thereafter 3. Follow up Ms Tadeo in 4 weeks 4. Consider ultrasound to evaluate AAA size at some point in the next few months. It is unusual for polymyalgia rheumatica to affect the larger arteries but it may be considered worth of baseline profiling at this time. 5. Maintain daily baby aspirin Level 4 consult based on time reviewing the chart, interviewing the patient examining the patient and explaining to her the diagnosis and treatment plan. 65 minutes Jose Roberto Gómez MD documented in this encounter Miscellaneous Notes Addendum Note - Lakshmi Herrera - 07/16/2021 11:00 AM EDT Addended by: LAKSHMI HERRERA on: 07/16/2021 12:07 PM Modules accepted: Orders documented in this encounter Plan of Treatment Not on filedocumented as of this encounter Procedures Procedure Name Priority Date/Time Associated Comments Diagnosis HC C-REACTIVE PROTEIN Routine 07/16/2021 12:45 PMR (polymyalgi a Results for this PM EDT rheumatica) procedure are i n the results section. HEMOGRAM Routine 07/16/2021 12:45 PMR (polymyalgia Results for this PM EDT rheumatica) procedure are i n the results section. DIFFERENTIAL, Routine 07/16/2021 12:45 PMR (polymyalgia Result s for this AUTOMATED PM EDT rheumatica) procedure are i n the results section. HC CBC,PLT & AUTO DIFF Routine 07/16/2021 12:45 PMR (polymyalg ia PM EDT rheumatica) COMPREHENSIVE Routine 07/16/2021 12:45 PMR (polymyalgia Result s for this METABOLIC PANEL PM EDT rheumatica) procedure ar e in (NON-FASTING) the results section. documented in this encounter Results Differential, Automated (07/16/2021 12:45 PM EDT) athologist Signature Neutrophils % 51.1 % [facility] Neutr Abs (ANC) 4.51 1.70 - [facility] 6.10 [facility] x10(3)/[facility] LABORATORY Lymphocytes % 36.5 % [facility] Lymphocytes Abs 3.2 0.9 - 3.2 [facility] x10(3)/[facility] LABORATORY Monocytes % 8.3 % [facility] Monocyte Abs 0.7 0.3 - 0.9 [facility] x10(3)/[facility] LABORATORY Eosinophils % 2.8 % [facility] Eosinophils Abs 0.2 0.0 - 0.4 [facility] x10(3)/[facility] LABORATORY Basophils % 1.1 % [facility] Basophils Abs 0.1 0.0 - 0.1 [facility] x10(3)/[facility] LABORATORY Immature Gran % 0.20 % [facility] Comment: Immature granulocytes(IG's)percentage an d absolute count will include metamyelocytes, myelocytes, and promyelo cytes. Blood smears from CBCs yielding IG's will be scanned manually for concor dance. If this scan disagrees with the automated IG or if promyelocytes are not ed, a manual differential will be performed. Apple Gran Abs 0.02 0.00 - 0.04 x10(3)/[facility] Specimen Anatomical Collection Method Collection Time Receive d Time (Source) Location / / Volume Laterality Blood 07/16/2021 12:45 07/16/2021 1:06 PM EDT PM EDT Resulting Agency Comment Spec In Lab Jose Roberto Gómez MD HEMATOLOGY ORDERABLES Performing Organization Address City/State/[place] [address] (ABNORMAL) Hemogram (07/16/2021 12:45 PM EDT) Analysis Performed At Patho logist Time Signature WBC 8.8 4.0 - 9.5 [facility] x10(3)/[facility] LABORATORY RBC 5.12 4.00 - [facility] 5.21 [facility] x10(6)/[facility] LABORATORY Hemoglobin 14.6 11.7 - [facility] 15[facility] gm/dL [facility] Hematocrit 44.2 35.7 - [facility] 45.8 % [facility] MCV 86.3 82.6 - [facility] 94.4 [facility] LABORATORY MCH 28.5 27.1 - [place] [place] 32.0 pg [facility] MCHC 33.0 31.7 - [facility] 35.0 gm/dL [facility] Platelets 310 145 - 357 [facility] x10(3)/[facility] LABORATORY RDWSD 48.8 (H) 37.0 - [facility] 46.0 [facility] LABORATORY RDWCV 15.3 (H) 11.5 - [facility] 14.1 % [facility] MPV 9.7 7.6 - 12.9 [facility] LABORATORY nRBC % Auto 0.0 % [facility] nRBC Abs Auto 0.000 0.000 - [facility] 0.000 [facility] x10(3)/[facility] LABORATORY Specimen Anatomical Collection Method Collection Time Receive d Time (Source) Location / / Volume Laterality Blood 07/16/2021 12:45 07/16/2021 1:06 PM EDT PM EDT Resulting Agency Comment Spec In Lab Jose Roberto Gómez MD HEMATOLOGY ORDERABLES Performing Organization Address City/State/[place] [address] (ABNORMAL) Comprehensive metabolic panel (non-fasting) (07/16/2021 12:45 PM EDT) P athologist Signature Glucose Lvl 100 65 - 199 [facility] mg/dL [facility] Comment: Diabetes: >=200 mg/dL plus symp toms BUN 15 8 - 18 mg/dL [facility] Creatinine 0.66 (L) 0.70 - 1.20 mg/dL [facility] Sodium 138 135 - 145 mmol/L [facility] Potassium 4.2 3.5 - 5.0 mmol/L [facility] Comment: Please note: ??Patients with WBC >100,00 0 may have falsely elevated Potassium levels. ??For accurate Potassium quantif ication in these patients send serum separator tube (gold top) for subsequent determinations. ??Contact the Clinical Chemistry Laboratory if there are any qu estions. Chloride 103 98 - 107 mmol/L [facility] CO2 25 22 - 31 mmol/L [facility] Anion Gap 10 5 - 15 mmol/L [facility] Calcium 9.4 8.5 - 10.5 mg/dL [facility] Total Protein 7.1 6.1 - 8.0 gm/dL [facility] Albumin 4.2 3.2 - 5.2 gm/dL [facility] AST 18 0 - 30 unit/L [facility] ALT 12 0 - 30 unit/L [facility] Alk Phos 95 35 - 105 unit/L [facility] Total Bilirubin 0.3 0.2 - 1.3 mg/dL [facility] Estimated GFR 83 >=60 mL/min/1.73 m?? [facility] Comment: This patient? s estimated glomerular filtration rate (eGFR) is between 83 mL/min/1.73 m2 (patients with less muscl e mass) and 97 mL/min/1.73 m2 (patients with more muscle mass) as determined by the CKD-EPI equation. Assessment of eGFR is not appropriate when creatinine concentrations are rapidly changing. For clinical decisions where creatinine clearance will affect therapy, a 24-hour urine creatinine clearance may b e advised. Assignment of CKD stage 1 - 5 for patien ts with an eGFR near the transition point between stages may be based on cli nical assessment of muscle mass and symptoms in addition to eGFR. Specimen Anatomical Collection Method Collection Time Receive d Time (Source) Location / / Volume Laterality Blood 07/16/2021 12:45 07/16/2021 1:06 PM EDT PM EDT Resulting Agency Comment Spec In Lab Jose Roberto Gómez MD CHEMISTRY ORDERABLES Performing Organization Address City/State/[place] [address] CRP, acute inflammation (07/16/2021 12:45 PM EDT) P athologist Signature CRP <3.0 <=4.9 mg/L [facility] Specimen Anatomical Collection Method Collection Time Receive d Time (Source) Location / / Volume Laterality Blood 07/16/2021 12:45 07/16/2021 1:06 PM EDT PM EDT Resulting Agency Comment Spec In Lab Jose Roberto Gmóez MD CHEMISTRY ORDERABLES Performing Organization Address City/State/[place] [address] documented in this encounter Visit Diagnoses Diagnosis PMR (polymyalgia rheumatica) Polymyalgia rheumatica documented in this encounter Care Teams Tool Lapper Hand Relationship Specialty Start Date End Date Radha Perez MD PCP - General General Internal Medicine 03/31/21 [address] [place] [address] documented as of this encounter
--- OUTSIDE RECORDS SUMMARY | 2022-05-23 17:35 | XMS_ITS | Encounter Summary ---
:1940 Author Organization [facility] [place] [address] Care Team Providers Name Role Phone Unavailable Primary Care Provider Unavailable Encounter Details Date Type Department Care Team Description 09/27/[address] Scan at [facility], AAA (abdominal aortic [facility] CONV aneurysm) [place] [id number] Social History Tobacco Use Types Packs/Day Years [...] hours as needed for Pain and Fever. [place]-3 Fatty Acids (FISH Take 1 capsule by 0 04/201204/06/2021 OIL) 500 mg CpDR mouth daily. multivitamin (THERAGRAN) Take 1 tablet by 0 09/1808/20/2021 tablet mouth daily. cholecalciferol, Vitamin Take 1 tablet by 0 09/1804/06/2021 D3, (VITAMIN D-3) 400 unit mouth daily. tablet Tcasluy-Ckz-Yrt Take 1 tablet by 0 09/18/2012 T5-Jdhmvl-Ts (CALCIMATE) mouth daily. Tab aspirin 325 mg [...] Miscellaneous Notes Miscellaneous - Provider, Scanning - 10/02/2012 11:19 AM EST documented in this encounter Plan of Treatment Not on filedocumented as of this encounter Procedures Procedure Name Priority Date/Time Associated Diagnosis Comme nts CT ANGIOGRAM Routine 09/27/2012 1:19 PM Abdominal aneurysm Res ults for this ABDOMEN AND PELVIS EST without mention of pro cedure are in W CONTRAST rupture the results section. documented in this encounter Results CTA OF ABDOMEN AND PELVIS WITH CONTRAST (09/27/2012 1:19 PM EST) Anatomical Region Laterality Modality Abdomen, Pelvis Computed Tomography Specimen (Source) Anatomical Collection Method Collection Time Re ceived Time Location / / Volume Laterality 09/27/2012 1:19 PM EST Narrative 09/27/2012 3:06 PM EST Examination CTA of Abdomen and Pelvis With Contrast Clinical History S/P EVAR abdominal aortic aneurysm Comparison August 27, 2012. Technique 110 mL Omnipaque 350 utilized for intrav enously enhanced CT angiogram of the abdomen and pelvis. ??Arterial phase and delayed post contrast images obtained. ?? 3 dimensional reformatted images reconst ructed on a separate workstation. 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 ??The bifurcated limbs of the endograft terminate in the common iliac arteries. ??No evidence of endo graft leak or recanalization. ??The greatest dimensions of the [place] sm sac are stable at 4.7 x 4.8 cm. The common iliac, internal and external iliac, and common femoral arteries are widely patent. ??A hematoma is seen in t he right inguinal region, compatible with post treatment change. No ascites or adenopathy. Impression Post bifurcated endograft repair of an i nfrarenal abdominal aortic aneurysm. ?? No evidence of endo graft leak or compli cation. Procedure Note Matthew Garcia MD - 09/27/2012Form atting of this note might be different from the original. Examination CTA of Abdomen and Pelvis With Contrast Clinical History S/P EVAR abdominal aortic aneurysm Comparison August 27, 2012. Technique 110 mL Omnipaque 350 utilized for intrav enously enhanced CT angiogram of the abdomen and pelvis. Arterial phase and d elayed post contrast images obtained. 3 dimensional reformatted images reconst ructed on a separate workstation. 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 The bifurcated l imbs of the endograft terminate in the common iliac arteries. No evidence of en do graft leak or recanalization. The greatest dimensions of the [place] sm sac are stable at 4.7 x 4.8 cm. The common iliac, internal and external iliac, and common femoral arteries are widely patent. A hematoma is seen in the right inguinal region, compatible with post treatment change. No ascites or adenopathy. Impression Post bifurcated endograft repair of an i nfrarenal abdominal aortic aneurysm. No evidence of endo graft leak or compli cation. Rubin Genao MD IMG CT ORDERABLES documented in this encounter Visit Diagnoses Diagnosis AAA (abdominal aortic aneurysm) Abdominal aneurysm without mention of ru pture documented in this encounter Administered Medications Inactive Administered Medications - up to 3 most recent administrations Medication Order MAR Action Action Date Dose Rate Site iohexol (OMNIPAQUE) 350 mg Given 09/27/2012 1:19 PM EST 38,500 m g iodine/mL injection 38,500 mg 38,500 mg (110 mL), Intravenous, ONCE PRN, 1 dose, Starting on Gabrielle 09/27/12 at 1318, Until Gabrielle 09/27/12 at 1319, Per Protocol, Routine documented in this encounter
--- OUTSIDE RECORDS SUMMARY | 2022-05-23 17:35 | XMS_ITS | Encounter Summary ---
:1940 [place] [address] Care Team Providers Name Role Phone Unavailable Primary Care Provider Unavailable Encounter Details Date Type Department Care Team Description 09/04/2012 Hospital Encounter Non-Invasive CLINIC, DR MOJGAN RICHARDSON (a bdominal Cardiology Lab Andrew Mixon MD [facility] [place] [address] aortic aneurysm) [place] [address] Social History Tobacco Use Types Packs/Day Years Used Date Former Smoker Smokeless Tobacco: Never Used Comments: quit 25 years ago Alcohol Use Standard Drinks/Week Comments Not Asked 0 (1 standard drink = 0.6 oz pure alcoho l) Sex Assigned at Date Recorded Not on file documented as of this encounter Last Filed Vital Signs Vital Sign Reading Time Taken Comments Blood Pressure 149/71 09/04/2012 10:01 AM EDT Pulse 52 09/04/2012 10:01 AM EDT Temperature - - Respiratory Rate 20 09/04/2012 10:01 AM EDT Oxygen Saturation 98% 09/04/2012 10:01 AM EDT Inhaled Oxygen Concentration - - Weight 61.2 kg (135 lb) 09/04/2012 10:01 AM EDT Height 157.5 cm (5' 2) 09/04/2012 10:01 AM EDT Body Mass Index 24.69 09/04/2012 10:01 AM EDT documented in this encounter Medications at Time of Discharge Medication Sig Dispensed Refills Start Date End Date acetaminophen (TYLENOL) Take 2 tablets by 30 tablet 0 09/18 325 mg tablet mouth every 6 hours as needed for Pain and Fever. OXYcodone (ROXICODONE) 5 Take 1-2 tablets by 60 tablet 0 09/18/2012 mg immediate release mouth every 4 hours tablet as needed for Pain (mild to moderate pain). Ltnjnqn-Dad-Edl Take 1 tablet by 0 09/18/201204/2012 C8-Zijuez-Pc (CALCIMATE) mouth daily. Tab [place]-3 Fatty Acids (FISH Take 1 capsule by 0 04/201204/06/2021 OIL) 500 mg CpDR mouth daily. multivitamin (THERAGRAN) Take 1 tablet by 0 09/1808/20/2021 tablet mouth daily. cholecalciferol, Vitamin Take 1 tablet by 0 09/1804/06/2021 D3, (VITAMIN D-3) 400 unit mouth daily. tablet Xxmeehq-Uam-Kyw Take 1 tablet by 0 09/18/2012 C2-Wkvalv-Cz (CALCIMATE) mouth daily. Tab multivitamin (THERAGRAN) Take 1 tablet by 0 09/18/2012 tablet mouth daily. aspirin 325 mg EC tablet Take 81 mg by 0 03/05/20 09 08/20/2021 mouth. simvastatin (ZOCOR) 80 mg 80 MG = 1 0 03/05/2009 04/06/2021 tablet Tablet(s), PO, Once daily nitroGLYcerin (NITROSTAT) 0.4 mg, Sublingual, 0 0 03/05/2009 04/06/2021 0.4 mg SL tablet q 5min prn chest pain DOCOSAHEXANOIC ACID/EPA 0 03/05/2009 1 11/18/2011 (FISH OIL ORAL) Oqcfyjq-Qsb-Beo 0 03/05/2009 2 E2-Udvkye-Km (CALCIMATE) Tab CHOLECALCIFEROL, VITAMIN 0 03/05/2009 09/18/2012 D3, (VITAMIN D-3 ORAL) clopidogrel (PLAVIX) 75 mg 75 MG = 1 0 9 08/20/2021 tablet Tablet(s), PO, Once daily documented as of this encounter Plan of Treatment Not on filedocumented as of this encounter Procedures Procedure Name Priority Date/Time Associated Comments Diagnosis ECHOCARDIOGRAM Routine 09/04/2012 10:59 AAA (abdominal Results for this PHARMACOLOGICAL STRESS AM EDT aortic aneurysm) p rocedure are in TEST (DSE) the results section. documented in this encounter Results Echo pharm stress test (DSE) (09/04/2012 10:59 AM EDT) P athologist Signature EF 65 HEARTLAB SYSTEM Specimen (Source) Anatomical Location Collection Method / Collectio n Time Received Time / Laterality Volume 09/04/2012 Narrative HEARTLAB SYSTEM - 09/04/2012 12:17 PM ED T Procedure: ? Stress Echocardiogram Patient: ? DUTIL ADDIE K ?(Age): 1940(71) Med Rec#: ?[id number] ? Sex: ?F ? Site Loc: ?[facility] – [place] ? Ht / Wt: ??157(cm)/61(kg) Pt. Loc: ? Echo Lab ? BSA: ?1.63 Study Date: ?09/04/2012 ? Pt. Type: Outpatient Tape: ? Referring: Andrew Genao Referring: ANDREW GENAO W Press Helper: Galen Jeronimo MS, CS Nurse: Kajal Jacome Diagnosis: ??Coronary atherosclerosis of [place] coronary artery (414.01) ??Ischemia (414.9) ??Pre-op cardiovascular evaluation (V72 .81) CPT Code(s): ??Definity (14070GD), ??Str ess Echo (95608), ??Color Doppler (32245), ??Doppler LTD (86562), ??ECG In terpretation (04562), Indication(s): ??Pre-op cardiovascular e valuation Medication(s): ?? Rhythm: Stage ?HR ?BP Rest ? 59 ?149/71 ?? Low dose ? 57 ?150/78 ?? Peak ? 131 ? 131/69 ?? Recovery ? 84 ?106/47 ?? SUMMARY: 1. BASELINE: Normal global and segmental biventricular systolic function with an estimated ejection fraction of 6 5%. ??Basal septal hypertrophy is observed. ??See remainder of report for additional findings. 2. STRESS: The patient received incremen delvis doses of Dobutamine to a peak of 30 mcg/kg/min, achieving a heart rate of 131 (87% max pred.). With stress she was asymptomatic, hemody namically stable, had no significant arrhythmias and developed no ST-TW changes. 3. ECHOCARDIOGRAPHIC FINDINGS: Global le ft ventricular systolic function appears hyperdynamic. ??There are no lef t ventricular segmental wall motion abnormalities. 4. IMPRESSION: Normal dobutamine stress echocardiogram. ??There is no echocardiographic evidence of ischemia a t this level of stres FINDINGS: Rest Left Ventricle ?The left ventricular chamber size is normal. ?Basal septal hypertrophy is observ ed. ?There is normal global left ventri cular systolic function. ??Ejection fraction is estimated to be 65%. ?There are no left ventricular segm ental wall motion abnormalities. ?Doppler assessment is consistent w ith normal left sided filling pressure. Left Atrium ?The left atrium is probably normal in size. Right Ventricle ?Right ventricular chamber size, wa ll thickness, and systolic function are within normal limits. Right Atrium ?The right atrium is probably addie l in size. Aortic Valve ?The aortic valve is tricuspid. ?The aortic valve leaflets are mild ly thickened. ?There is no evidence of aortic emely ve stenosis. ?There is no evidence of aortic reg urgitation. Mitral Valve ?The mitral valve appears normal in structure and function. ?There is trace mitral regurgitatio n present. Tricuspid Valve ?The tricuspid valve appears normal in structure and function. ?There is no evidence of tricuspid valve regurgitation present. Pericardium ?The pericardium appears normal and there is no evidence of a pericardial effusion. ?A pericardial fat pad is visualize d. Stress ?EKG: normal sinus rhythm. ?The patient's oxygen saturation wa s 98% on r/a ?The patient is taking a lipid lowe ring agent. ?The patient is on an CITLALLI inhibitor . ?The patient is taking an anti-plat elet medication. Misc ?See remainder of report for additi onal findings. ?Definity contrast (one 1.5 ml vial )was used to enhance endocardial definition. Excess contrast was discarde d. ?Stress echo, limited spectral Dopp ler, color Doppler and ECG interpretation performed. FINDINGS: Low dose Stress ?EKG: normal sinus rhythm. FINDINGS: Peak Left Ventricle ?Global left ventricular systolic f unction appears hyperdynamic. ?There are no left ventricular segm ental wall motion abnormalities. Stress ?Maximum heart rate achieved was 13 1, which is 88% of the maximum(149 beats/min). ?The target heart rate was achieved . ?The peak dose of Dobutamine infuse d was 30 ug/kg/min. ?The patient performed leg lifts to accelerate heart rate. ?The patient performed hand squeeze s to accelerate heart rate. ?The patient did not express feelin gs of chest discomfort. ?The blood pressure response was no rmal. ?There were no arrhythmias. ?There were no significant ST segme nt changes. ?EKG: sinus tachycardia. ?The patient's oxygen saturation wa s 98% ?? Misc ?Definity contrast was given to enh ance Doppler signal. ?A 20 gauge heplock was placed. upo n insertion pt had a vagal response, elevated lower extremities, IV bolus given 100cc. Good response. ?An IV was placed in the patient's right arm. ?The IV site is dry and intact with no hematoma. ?Normal saline was given. 400cc NS ?The patient is alert and oriented x3. ?The procedure was explained to the patient and the patient understands the procedure, FINDINGS: Recovery Stress ?EKG: normal sinus rhythm. Wall Motion: Segment Name ?Rest ?Peak ? Base-Anteroseptal ?? Normal ?Normal ? Base-Anterior ? Normal ?Normal ? Base-Anterolateral ??Normal ?Normal ? Base-Posterolateral Normal ?Normal ? Base-Inferior ? Normal ?Normal ? Base-Inferoseptal ?? Normal ?Normal ? Mid-Anteroseptal ?Normal ?Normal ? Mid-Anterior ?Normal ?Normal ? Mid-Anterolateral ?? Normal ?Normal ? Mid-Posterolateral ??Normal ?Normal ? Mid-Inferior ?Normal ?Normal ? Mid-Inferoseptal ?Normal ?Normal ? [place]-Septal ? Normal ?Normal ? [place]-Anterior ? Normal ?Normal ? [place]-Lateral ?Normal ?Normal ? [place]-Inferior ? Normal ?Normal ? [place]-Tip ?Normal ?Normal ? Mitral Valve ?Value ?Units (Range) ? E peak ?0.75 ? m/sec ? E/A ratio ? 1 ?ratio ? MVDT ?225 ?msec ? E1 ?0.1 ?m/sec ? E/E1 ?7.8 ?ratio ? Tricuspid/Pulmonic Valves ?Value ?Units (Range) ? RAP ? 3 ?mmHg ? This report has been electronically sign ed by: _ Zach Mcnair. ? 09/04/2012 12:1 7:00 Images reviewed and interpretation favio gilliam [facility] Cardiac Ultrasound Laboratory Procedure Note Zach Mcnair MD - 09/04/2012Format ting of this note might be different from the original. Procedure: Stress Echocardiogram Patient: BAL Esteban (Age): [birth year](71) Med Rec#: [id number] Sex: F Site Loc: [facility] – [place], [place] Ht / Wt: 157(cm)/61(kg) Pt. Loc: Echo Lab BSA: 1.63 Study Date: 09/04/2012 Pt. Type: Outpati ent Tape: Referring: Andrew Genao Referring: ANDREW GENAO W Press Helper: Galen Jeronimo MS, RDCS Nurse: Kajal Jacome Diagnosis: Coronary atherosclerosis of n ative coronary artery (414.01) Ischemia (414.9) Pre-op cardiovascular evaluation (V72.8 1) CPT Code(s): Definity (44854IV), Stress Echo (54762), Color Doppler (40793), Doppler LTD (84199), ECG Interp retation (98197), Indication(s): Pre-op cardiovascular sage luation Medication(s): Rhythm: Stage HR BP Rest 59 149/71 Low dose 57 150/78 Peak 131 131/69 Recovery 84 106/47 SUMMARY: 1. BASELINE: Normal global and segmental biventricular systolic function with an estimated ejection fraction of 6 5%. Basal septal hypertrophy is observed. See remainder of report for ad ditional findings. 2. STRESS: The patient received incremen delvis doses of Dobutamine to a peak of 30 mcg/kg/min, achieving a heart rate of 131 (87% max pred.). With stress she was asymptomatic, hemody namically stable, had no significant arrhythmias and developed no ST-TW changes. 3. ECHOCARDIOGRAPHIC FINDINGS: Global le ft ventricular systolic function appears hyperdynamic. There are no left ventricular segmental wall motion abnormalities. 4. IMPRESSION: Normal dobutamine stress echocardiogram. There is no echocardiographic evidence of ischemia a t this level of stres FINDINGS: Rest Left Ventricle The left ventricular chamber size is no rmal. Basal septal hypertrophy is observed. There is normal global left ventricular systolic function. Ejection fraction is estimated to be 65%. There are no left ventricular segmental wall motion abnormalities. Doppler assessment is consistent with n ormal left sided filling pressure. Left Atrium The left atrium is probably normal in s ize. Right Ventricle Right ventricular chamber size, wall th ickness, and systolic function are within normal limits. Right Atrium The right atrium is probably normal in size. Aortic Valve The aortic valve is tricuspid. The aortic valve leaflets are mildly th ickened. There is no evidence of aortic valve st enosis. There is no evidence of aortic regurgit ation. Mitral Valve The mitral valve appears normal in stru cture and function. There is trace mitral regurgitation pre sent. Tricuspid Valve The tricuspid valve appears normal in s tructure and function. There is no evidence of tricuspid valve regurgitation present. Pericardium The pericardium appears normal and ther e is no evidence of a pericardial effusion. A pericardial fat pad is visualized. Stress EKG: normal sinus rhythm. The patient's oxygen saturation was 98% on r/a The patient is taking a lipid lowering agent. The patient is on an CITLALLI inhibitor. The patient is taking an anti-platelet medication. [facility] [place] See remainder of report for additional findings. Definity contrast (one 1.5 ml vial)was used to enhance endocardial definition. Excess contrast was discarde d. Stress echo, limited spectral Doppler, color Doppler and ECG interpretation performed. FINDINGS: Low dose Stress EKG: normal sinus rhythm. FINDINGS: Peak Left Ventricle Global left ventricular systolic functi on appears hyperdynamic. There are no left ventricular segmental wall motion abnormalities. Stress Maximum heart rate achieved was 131, wh ich is 88% of the maximum(149 beats/min). The target heart rate was achieved. The peak dose of Dobutamine infused was 30 ug/kg/min. The patient performed leg lifts to acce lerate heart rate. The patient performed hand squeezes to accelerate heart rate. The patient did not express feelings of chest discomfort. The blood pressure response was normal. There were no arrhythmias. There were no significant ST segment ch anges. EKG: sinus tachycardia. The patient's oxygen saturation was 98% [facility] [place] Definity contrast was given to enhance Doppler signal. A 20 gauge heplock was placed. upon ins ertion pt had a vagal response, elevated lower extremities, IV bolus given 100cc. Good response. An IV was placed in the patient's right arm. The IV site is dry and intact with no h ematoma. Normal saline was given. 400cc NS The patient is alert and oriented x3. The procedure was explained to the baldo ent and the patient understands the procedure, FINDINGS: Recovery Stress EKG: normal sinus rhythm. Wall Motion: Segment Name Rest Peak Base-Anteroseptal Normal Normal Base-Anterior Normal Normal Base-Anterolateral Normal Normal Base-Posterolateral Normal Normal Base-Inferior Normal Normal Base-Inferoseptal Normal Normal Mid-Anteroseptal Normal Normal Mid-Anterior Normal Normal Mid-Anterolateral Normal Normal Mid-Posterolateral Normal Normal Mid-Inferior Normal Normal Mid-Inferoseptal Normal Normal Hancock-Septal Normal Normal Hancock-Anterior Normal Normal [place]-Lateral Normal Normal [place]-Inferior Normal Normal [place]-Tip Normal Normal Mitral Valve Value Units (Range) E peak 0.75 m/sec E/A ratio 1 ratio MVDT 225 msec E1 0.1 m/sec E/E1 7.8 ratio Tricuspid/Pulmonic Valves Value Units (Range) RAP 3 mmHg This report has been electronically sign ed by: _ Zach Mncair 09/04/2012 12:17:00 Images reviewed and interpretation favio gilliam [facility] Cardiac Ultrasound Laboratory Andrew Genao MD ECHO ORDERABLES Performing Organization Address City/State/ZIP Code Phon e Number HEARTLAB SYSTEM documented in this encounter Visit Diagnoses Diagnosis AAA (abdominal aortic aneurysm) Abdominal aneurysm without mention of ru pture documented in this encounter Administered Medications Inactive Administered Medications - up to 3 most recent administrations Medication Order MAR Action Action Date Dose Rate Site DOBUTamine 500 mg in Given 09/04/2012 10:00 AM 1.836 mg/min 55.1 mL/hr sodium chloride 0.9% 250 EDT mL (ECHO LAB) 30 mcg/kg/min ? 61.2 kg (rounded to 55.1 mL/hr), Intravenous, ONCE, 1 dose, On Mon09/04/12 at 1100, Echo Lab (Intra-Procedure) perflutren lipid microspheres (DEFINITY) Given 09/04/2012 9:45 A M EDT 0.4 mLs injection 0.4 mL 0.4 mL (0.35 mL), Intravenous, IMG ONCE PRN, 1 dose, Starting on Mon09/04/12 at 1059, Until Mon09/04/12 at 0945, Other, for enhancement of sub-optimal echo images, Echo Lab (Intra-Procedure), Routine documented in this encounter
--- OUTSIDE RECORDS SUMMARY | 2022-05-23 17:35 | XMS_ITS | Encounter Summary ---
:1940 [place] [address] Care Team Providers Name Role Phone Unavailable Primary Care Provider Unavailable Encounter Details Date Type Department Care Team Description 08/27/[address] [place] [facility] [place] (abdominal aortic [facility] aneurysm) [place] [address] Social History Tobacco Use Types Packs/Day Years [...] 0 03/05/2009 1 11/18/2011 (FISH OIL ORAL) Iwsofdb-Sxa-Ofu 0 03/05/2009 2 T0-Whwenk-Sy (CALCIMATE) Tab CHOLECALCIFEROL, VITAMIN 0 03/05/2009 09/18/2012 D3, (VITAMIN D-3 ORAL) clopidogrel (PLAVIX) 75 mg 75 MG = 1 0 9 08/20/2021 tablet Tablet(s), PO, Once daily documented as of this encounter Plan of Treatment Not on filedocumented as of this encounter Procedures Procedure Name Priority Date/Time Associated Diagnosis Comme nts CT ANGIOGRAM Routine 08/27/2012 2:22 PM Abdominal aneurysm Res ults for this ABDOMEN AND PELVIS EDT without mention of pro cedure are in W CONTRAST rupture the results section. documented in this encounter Results CTA OF ABDOMEN AND PELVIS WITH CONTRAST (08/27/2012 2:22 PM EDT) Anatomical Region Laterality Modality Abdomen, Pelvis Computed Tomography Specimen (Source) Anatomical Collection Method Collection Time Re ceived Time Location / / Volume Laterality 08/27/2012 2:22 PM EDT Narrative 08/27/2012 3:46 PM EDT Examination CTA of the abdomen and pelvis ?? Clinical History Abdominal aortic aneurysm. Comparison 07/26/2011. Technique Helical CT angiogram of the abdomen and pelvis was performed following intravenous administration of 150cc of O mnipaque 350. Multiplanar images were reviewed and 3D images were generated on an independent workstation. Findings Vascular: Interval enlargement of the infrarenal a bdominal aortic aneurysm currently measuring 4.7 x 4.7 cm compared to prior of 4.4 x 4.5 cm. ??In 2008 this measured 4 x 4.1 cm. ??This extends to t he aortic bifurcation. ?? Extensive mural thrombus again noted. ?? 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 The ps eudoaneurysm is stable in size measuring 14 mm in diameter. As before, there is short segment dissection at the origin of the left common iliac yasmine ry. The left common iliac is stable in caliber measuring 17 mm in diameter. The entire left common iliac artery remains irregular and lobulated in conto ur. ?? Scattered atherosclerotic calcification of the right external iliac artery is again noted. Bilateral common femoral ar david atherosclerotic calcifications are again present. ?? Celiac axis: No stenosis SMA: No stenosis Renal arteries Single bilateral, no sten osis MINA: Arises from the aneurysm sac and is occluded at its origin, there is retrograde filling of the MINA through th e marginal artery of Alessandra. ?? Abdomen: Scattered subsegmental atelectasis and b ilateral dependent atelectasis is present; the visualized lung bases are o therwise clear. There is no pericardial or pleural effusion. ??The liver, gallbl adder, pancreas, spleen, adrenal glands, and kidneys are normal. No hydronephrosi s or hydroureter is seen. ?? A small hiatal hernia is present. ??The stomach is otherwise unremarkable. ??The bowel is not obstructed. ??Mild distal c olonic diverticulosis is seen without CT diverticulitis. No mesenteric or retrope ritoneal adenopathy or mass lesion is present. ??No intra-abdominal free air o r free fluid. ?? Pelvis: The urinary bladder is distended and lisa ssly normal in appearance. The uterus and right ovary are surgically absent. T he left ovary is unremarkable. No pelvic sidewall or inguinal adenopathy o r mass lesion is seen. ??There is no pelvic free fluid. ?? No concerning osseous abnormality is see n. L5-S1 degenerative disc disease is present. ?? Impression 1. Interval increase in size of fusiform infrarenal abdominal aortic aneurysm which now measures 4.7 x 4.7 cm, which h as shown slow growth since 2008. ?? 2. 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 ? Film and interpretation reviewed by the attending Procedure Note Caren Christianson MD - 08/27/2012 Examination CTA of the abdomen and pelvis Clinical History Abdominal aortic aneurysm. Comparison 07/26/2011. Technique Helical CT angiogram of the abdomen and pelvis was performed following intravenous administration of 150cc of O mnipaque 350. Multiplanar images were reviewed and 3D images were generated on an independent workstation. Findings Vascular: Interval enlargement of the infrarenal a bdominal aortic aneurysm currently measuring 4.7 x 4.7 cm compared to prior of 4.4 x 4.5 cm. In 2008 this measured 4 x 4.1 cm. This extends to the aortic bifurcation. 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 The ps eudoaneurysm is stable in size measuring 14 mm in diameter. As before, there is short segment dissection at the origin of the left common iliac yasmine ry. The left common iliac is stable in caliber measuring 17 mm in diameter. The entire left common iliac artery remains irregular and lobulated in conto ur. Scattered atherosclerotic calcification of the right external iliac artery is again noted. Bilateral common femoral ar david atherosclerotic calcifications are again present. Celiac axis: No stenosis SMA: No stenosis Renal arteries Single bilateral, no sten osis MINA: Arises from the aneurysm sac and is occluded at its origin, there is retrograde filling of the MINA through th e marginal artery of Alessandra. Abdomen: Scattered subsegmental atelectasis and b ilateral dependent atelectasis is present; the visualized lung bases are o therwise clear. There is no pericardial or pleural effusion. The liver, gallblad tianna, pancreas, spleen, adrenal glands, and kidneys are normal. No hydronephrosi s or hydroureter is seen. A small hiatal hernia is present. The st omach is otherwise unremarkable. The bowel is not obstructed. Mild distal col onic diverticulosis is seen without CT diverticulitis. No mesenteric or retrope ritoneal adenopathy or mass lesion is present. No intra-abdominal free air or free fluid. Pelvis: The urinary bladder is distended and lisa ssly normal in appearance. The uterus and right ovary are surgically absent. T he left ovary is unremarkable. No pelvic sidewall or inguinal adenopathy o r mass lesion is seen. There is no pelvic free fluid. No concerning osseous abnormality is see n. L5-S1 degenerative disc disease is present. Impression 1. Interval increase in size of fusiform infrarenal abdominal aortic aneurysm which now measures 4.7 x 4.7 cm, which h as shown slow growth since 2008. 2. 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 Film and interpretation reviewed by the attending Rubin Genao MD IMG CT ORDERABLES documented in this encounter Visit Diagnoses Diagnosis AAA (abdominal aortic aneurysm) Abdominal aneurysm without mention of ru pture documented in this encounter Administered Medications Inactive Administered Medications - up to 3 most recent administrations Medication Order MAR Action Action Date Dose Rate Site iohexol (OMNIPAQUE) 350 mg Given 08/27/2012 2:13 PM EDT 38,500 m g iodine/mL injection 38,500 mg 38,500 mg (110 mL), Intravenous, ONCE PRN, 1 dose, Starting on 08/27/12 at 1412, Until 08/27/12 at 1413, Per Protocol, Routine documented in this encounter
--- OUTSIDE RECORDS SUMMARY | 2022-05-23 17:35 | XMS_ITS | Encounter Summary ---
:1940 Author Organization [facility] [place] [address] Care Team Providers Name Role Phone Unavailable Primary Care Provider Unavailable Reason for Visit - Closed Specialty Diagnoses / Procedures Referred By Contact Refer red To Contact Procedures Susana Israel PA Film Library- Storage Only DX [facility] DR Shoulder [place] [address] Referral ID Status Reason Start Date Expiration Date Visits Requ ested Visits Authorized [id number] Closed 04/02/2021 04/02/2022 1 1 Encounter Details Date Type Department Care Team Description 03/12/2021 Ancillary Procedure Radiology Library at Therese Perez [facility] [id number] [place] [id number] [phone] Social History Tobacco Use Types Packs/Day Years [...] Associated Diagnosis Comme nts FILM LIBRARY Routine 03/12/2021 12:00 AM Results for this STORAGE ONLY DX EDT procedure ar e in SHOULDER the results section. documented in this encounter Results Film Library- Storage Only DX Shoulder (03/12/2021 12:00 AM EDT) Specimen (Source) Anatomical Location Collection Method / Collectio n Time Received Time / Laterality Volume Narrative [facility] - 04/02/2021 7:51 AM EDT This exam is auto-finalizing. It's purpo se is for storage only. Radha Preez MD Julieth FILM LIBRARY ORDERABLES Performing Organization Address City/State/ZIP Code Phon e Number [facility] [place], [place] documented in this encounter Visit Diagnoses Not on filedocumented in this encounter
--- OUTSIDE RECORDS SUMMARY | 2022-05-23 17:35 | XMS_ITS | Encounter Summary ---
:1940 Author Organization [facility] [place] [address] Care Team Providers Name Role Phone Unavailable Primary Care Provider Unavailable Reason for Visit Reason Comments Follow-up AAA surveillance Encounter Details Date Type Department Care Team Description 08/27/2012 Follow-Up Vascular Surgery at CLIN[facility], DR ULRICH AAA ( abdominal aortic [facility] Andrew eGnao MD [facility] [place] [address] aneurysm) (Primary Dx) [place] [phone] Social History Tobacco Use Types Packs/Day Years Used Date Former Smoker Smokeless Tobacco: Never Used Comments: quit 25 years ago Alcohol Use Standard Drinks/Week Comments Not Asked 0 (1 standard drink = 0.6 oz pure alcoho l) Sex Assigned at Date Recorded Not on file documented as of this encounter Last Filed Vital Signs Vital Sign Reading Time Taken Comments Blood Pressure 159/83 08/27/2012 3:07 PM EDT right arm Pulse 59 08/27/2012 3:06 PM EDT Temperature - - Respiratory Rate - - Oxygen Saturation 98% 08/27/2012 3:06 PM EDT Inhaled Oxygen Concentration - - Weight 61.2 kg (135 lb) 08/27/2012 3:06 PM EDT Height 162.6 cm (5' 4) 08/27/2012 3:06 PM EDT Body Mass Index 23.17 08/27/2012 3:06 PM EDT documented in this encounter Progress Notes Andrew Genao MD - 08/27/2012 3:45 PM EDT Interval history: Ms Gao returns in follow-up for a small AAA. Last seen last year when it was 4.5-cm. Long infrarenal neck. No recent changes in health. She does state that over the past several months she notices pain in her abdomen during sex or when her abdomen is touched. 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 No other significant findings Fem pulse - 2/2 : Studies: CTA: Long infrarenal neck, 4.5 cm AAA. No stranding Assessment / Plan: Relatively small infrarenal AAA but with tenderness. Ms Gao has a 4.5 -cm AAA which is below the typical threshold for repair (5-cm), HOWEVER it is suprisingly tender. She states it has been this way for months. I have explained the natural history of AAA including the annual riskof rupture and , <1% for a AAA this size though with the tenderness it is likely significantly more. I have explained that aneurysms are typically repaired once the risk of rupture exceeds the risk of repair. We discussed the repair modalities including open and endovascular. I have discussed risk factors for AAA growth as well as the warning signs of rupture. I have suggested AAA repair especially since this appear to be amenable to EVAR. We will obtain a preop stress test. Surgery has beenschedule for Nov documented in this encounter Plan of Treatment Not on filedocumented as of this encounter Procedures Procedure Name Priority Date/Time Associated Comments Diagnosis URINALYSIS WITHOUT Routine 08/27/2012 4:36 PM AAA (abdominal R esults for this MICROSCOPIC EDT aortic aneurysm) procedure a re in the results section. EKG 12-LEAD Routine 08/27/2012 4:32 PM AAA (abdominal Results for this EDT aortic aneurysm) procedure a re in the results section. DIFFERENTIAL, Routine 08/27/2012 4:27 PM Results for this AUTOMATED EDT procedure are i n the results section. TYPE AND SCREEN, SDP Routine 08/27/2012 4:27 PM AAA (abdominal (FUTURE SURGERY, [facility] EDT aortic aneurysm) SAME DAY PROGRAM ONLY) CREATININE Routine 08/27/2012 4:27 PM AAA (abdominal Results for this EDT aortic aneurysm) procedure a re in the results section. ABO/RH TYPING Routine 08/27/2012 4:27 PM AAA (abdominal Result s for this EDT aortic aneurysm) procedure a re in the results section. APTT Routine 08/27/2012 4:27 PM AAA (abdominal Results for this EDT aortic aneurysm) procedure a re in the results section. PROTHROMBIN TIME Routine 08/27/2012 4:27 PM AAA (abdominal Res ults for this EDT aortic aneurysm) procedure a re in the results section. CBC (WITH DIFF) Routine 08/27/2012 4:27 PM AAA (abdominal Resu lts for this EDT aortic aneurysm) procedure a re in the results section. ANTIBODY SCREEN Routine 08/27/2012 4:27 PM AAA (abdominal Resu lts for this EDT aortic aneurysm) procedure a re in the results section. ELECTROLYTES PANEL Routine 08/27/2012 4:27 PM AAA (abdominal R esults for this EDT aortic aneurysm) procedure a re in the results section. BASIC METABOLIC PANEL Routine 08/27/2012 4:27 PM AAA (abdomina l Results for this (NON-FASTING) EDT aortic aneurysm) procedure are in the results section. CREATININE STAT 08/27/2012 12:01 AAA (abdominal Results f or this PM EDT aortic aneurysm) procedure a re in the results section. BUN STAT 08/27/2012 12:01 AAA (abdominal Results f or this PM EDT aortic aneurysm) procedure a re in the results section. documented in this encounter Results Echo pharm stress test (DSE) (09/04/2012 10:59 AM EDT) P athologist Signature EF 65 [facility] Specimen (Source) Anatomical Location Collection Method / Collectio n Time Received Time / Laterality Volume 09/04/2012 Narrative [facility] - 09/04/2012 12:17 PM ED T Procedure: ? Stress Echocardiogram Patient: ? DUTIL ADDIE K ?(Age): 1940(71) Med Rec#: ?[id number] ? Sex: ?F ? Site Loc: ?[facility] ? Ht / Wt: ??157(cm)/61(kg) Pt. Loc: ? Echo Lab ? BSA: ?1.63 Study Date: ?09/04/2012 ? Pt. Type: Outpatient Tape: ? Referring: Andrew Genao Referring: ANDREW GENAO W Children'S Aide: Galen Jeronimo MS, [facility] Nurse: Kajal Jacome Diagnosis: ??Coronary atherosclerosis of robinson coronary artery (414.01) ??Ischemia (414.9) ??Pre-op cardiovascular evaluation (V72 .81) CPT Code(s): ??Definity (95525HA), ??Str ess Echo (90480), ??Color Doppler (45336), ??Doppler LTD (10833), ??ECG In terpretation (55677), Indication(s): ??Pre-op cardiovascular e valuation Medication(s): ?? [...] ?Normal ?Normal ? Mid-Inferoseptal ?Normal ?Normal ? [place]-Septal ? Normal ?Normal ? [place]-Anterior ? Normal ?Normal ? [place]-Lateral ?Normal ?Normal ? [place]-Inferior ? Normal ?Normal ? [place]-Tip ?Normal ?Normal ? Mitral Valve ?Value ?Units (Range) ? E peak ?0.75 ? m/sec ? E/A ratio ? 1 ?ratio ? MVDT ?225 ?msec ? E1 ?0.1 ?m/sec ? E/E1 ?7.8 ?ratio ? Tricuspid/Pulmonic Valves ?Value ?Units (Range) ? RAP ? 3 ?mmHg ? This report has been electronically sign ed by: _ Zach Mcnair. ? 09/04/2012 12:1 7:00 Images reviewed and interpretation vermarina gilliam [facility] Cardiac Ultrasound Laboratory Procedure Note Zach Mcnair MD - 09/04/2012Format ting of this note might be different from the original. Procedure: Stress Echocardiogram Patient: BAL Esteban DOB(Age): [birth year](71) Med Rec#: [id number] Sex: F Site Loc: [facility] Ht / Wt: 157(cm)/61(kg) Pt. Loc: Echo Lab BSA: 1.63 Study Date: 09/04/2012 Pt. Type: Outpati ent Tape: Referring: Andrew Genao Referring: ANDREW GENAO W Children'S Aide: Galen Jeronimo MS, RDCS Nurse: Kajal Jacome Diagnosis: Coronary atherosclerosis of n ative coronary artery (414.01) Ischemia (414.9) Pre-op cardiovascular evaluation (V72.8 1) CPT Code(s): Definity (20138DT), Stress Echo (45380), Color Doppler (75394), Doppler LTD (50915), ECG Interp retation (58490), Indication(s): Pre-op cardiovascular sage luation Medication(s): Rhythm: [...] The patient is taking an anti-platelet medication. Misc See remainder of report for additional findings. [...] tachycardia. The patient's oxygen saturation was 98% Misc Definity contrast was given to enhance Doppler [...] Normal Mid-Inferior Normal Normal Mid-Inferoseptal Normal Normal [place]-Septal Normal Normal [place]-Anterior Normal Normal [place]-Lateral Normal Normal [place]-Inferior Normal Normal [place]-Tip Normal Normal Mitral Valve Value Units (Range) E peak 0.75 m/sec E/A ratio 1 ratio MVDT 225 msec E1 0.1 m/sec E/E1 7.8 ratio Tricuspid/Pulmonic Valves Value Units (Range) RAP 3 mmHg This report has been electronically sign ed by: _ Zach Mcnair 09/04/2012 12:17:00 Images reviewed and interpretation verif ied [facility] Cardiac Ultrasound Laboratory Andrew Genao MD ECHO ORDERABLES Performing Organization Address City/State/ZIP Code Phon e Number HEART[facility] SYSTEM Urinalysis without microscopic (08/27/2012 4:36 PM EDT) [facility] Method Time Signature Glucose UA Negative Negative CERNER mg/dL MILLENNIUM Protein UA Negative mg/dL CERNER MILLENNIUM Bilirubin UA Negative Negative CERNER mg/dL MILLENNIUM Urobilinogen UA Normal mg/dL CERNER MILLENNIUM pH UA 6.0 5.0 - 8.0 CERNER MILLENNIUM Blood UA Negative mg/dL CERNER MILLENNIUM Ketones UA Negative mg/dL CERNER MILLENNIUM Nitrite UA Negative CERNER MILLENNIUM Leukocytes UA Negative mcL CERNER MILLENNIUM Appearance UA Clear Clear CERNER MILLENNIUM Spec [place] UA 1.012 1.002 - CERNER 1.030 MILLENNIUM Color UA Colorless Yellow [facility] Specimen Anatomical Collection Method Collection Time Receive d Time (Source) Location / / Volume Laterality Urine specimen 08/27/2012 4:36 PM 012 4:41 (specimen) EDT PM EDT Resulting Agency Comment Spec In Lab Andrew Genao MD URINE ORDERABLES Performing Organization Address City/State/[place] [address] [facility] E[facility] 12 Lead (08/27/2012 4:32 PM EDT) Component Value Ref Range Test Analysis Performed Pathologis t Method Time At Signature Ventricular rate 60 BPM MUSE SYSTEM Atrial Rate 60 BPM MUSE SYSTEM P-R Interval 174 ms MUSE SYSTEM QRS Duration 96 ms MUSE SYSTEM Q-T Interval 414 ms MUSE SYSTEM QTC Calculated 414 ms MUSE SYSTEM (Bezet) Calculated P [place] 29 degrees MUSE SYSTEM Calculated R [place] 7 degrees MUSE SYSTEM Calculated T [place] 17 degrees MUSE SYSTEM INTERPRETATION Normal sinus rhythm MUSE SYSTEM Nonspecific T wave abnormality Anterior leads Abnormal ECG Confirmed by MD Simone, Bruce ([id number]) on 08/27/2012 8:26:22 P M Specimen Anatomical Collection Method Collection Time Receive d Time (Source) Location / / Volume Laterality 08/27/2012 4:32 PM 2 8:26 EDT PM EDT Andrew Genao MD ECG ORDERABLES Performing Organization Address City/State/ZIP Code Phon e Number MUSE SYSTEM DIFFERENTIAL, AUTOMATED (08/27/2012 4:27 PM EDT) P athologist Signature Neutrophils % 53.8 34.0 - CERNER 71.0 % MILLENNIUM Neutr Abs (ANC) 4.20 1.50 - CERNER 6.30 MILLENNIUM x10(3)/mcL Lymphocytes % 34.7 19.0 - CERNER 53.0 % MILLENNIUM Lymphocytes Abs 2.7 1.0 - 3.6 CERNER x10(3)/mcL MILLENNIUM Monocytes % 8.5 4.0 - 13.0 CERNER % MILLENNIUM Monocyte Abs 0.7 0.2 - 1.0 CERNER x10(3)/mcL MILLENNIUM Eosinophils % 2.1 0.0 - 7.0 CERNER % MILLENNIUM Eosinophils Abs 0.2 0.0 - 0.5 CERNER x10(3)/mcL MILLENNIUM Basophils % 0.8 0.0 - 2.0 CERNER % MILLENNIUM Basophils Abs 0.1 0.0 - 0.2 CERNER x10(3)/mcL MILLENNIUM Immature Gran % 0.10 0.00 - CERNER [...] Location / / Volume Laterality Blood specimen 08/27/2012 4:27 PM 012 4:41 (specimen) EDT PM EDT Andrew Genao MD HEMATOLOGY ORDERABLES Performing Organization Address City/State/[place] [address] CERNER MILLENNIUM ANTIBODY SCREEN (08/27/2012 4:27 PM EDT) Analysis Performed At Patho logist Time Signature Ab Screen Negative CERNER Interp MILLENNIUM Expires at [id number] CERNER 2358 on: MILLENNIUM Specimen Anatomical Collection Method Collection Time Receive d Time (Source) Location / / Volume Laterality Blood specimen 08/27/2012 4:27 PM 012 4:35 (specimen) EDT PM EDT Resulting Agency Comment Spec In Lab Andrew Genao MD BLOOD BANK ORDERABLES Performing Organization Address City/State/[place] [address] CERNER MILLENNIUM ABO/RH TYPING (08/27/2012 4:27 PM EDT) P athologist Signature ABORh Type O Pos CERNER MILLENNIUM Specimen Anatomical Collection Method Collection Time Receive d Time (Source) Location / / Volume Laterality Blood specimen 08/27/2012 4:27 PM 012 4:35 (specimen) EDT PM EDT Resulting Agency Comment Spec In Lab Andrew Genao MD BLOOD BANK ORDERABLES Performing Organization Address City/[facility]/ZIP [place] [address] CERNER MILLENNIUM APTT (08/27/2012 4:27 PM EDT) P athologist Signature PTT 30 25 - 35 sec CERNER MILLENNIUM Comment: Recommended therapeutic PTT range for fu ll dose unfractionated heparin is 80-114 seconds. Specimen Anatomical Collection Method Collection Time Receive d Time (Source) Location / / Volume Laterality Blood specimen 08/27/2012 4:27 PM 012 4:41 (specimen) EDT PM EDT Resulting Agency Comment Spec In Lab Andrew Genao MD HEMATOLOGY ORDERABLES Performing Organization Address City/[facility]/ZIP [place] [address] CERNER MILLENNIUM Prothrombin Time (08/27/2012 4:27 PM EDT) P athologist Signature PT 12.1 11.9 - 14.7 CERNER sec MILLENNIUM Comment: [facility] Transfusion Committee Guidelines: I NR less than 2.0, PTT less than OR equal to 43.5 seconds, or Fibrinogen gre ater than or equal to 100 mg/dl indicate adequate procoagulant activity for hemostasis in patients without underlying bleeding disorders. INR 0.9 0.9 - 1.1 CERNER MILLENNIUM Specimen Anatomical Collection Method Collection Time Receive d Time (Source) Location / / Volume Laterality Blood specimen 08/27/2012 4:27 PM 012 4:41 (specimen) EDT PM EDT Resulting Agency Comment Spec In Lab Andrew Genao MD HEMATOLOGY ORDERABLES Performing Organization Address City/State/[place] [address] CERNER MILLENNIUM Basic Metabolic Panel (non-fasting) (08/27/2012 4:27 PM EDT) P athologist Signature Glucose Lvl 98 60 - 199 CERNER mg/dL MILLENNIUM Comment: Diabetes: >=200 mg/dL plus symp toms BUN 15 8 - 18 mg/dL CERNER MILLENNIUM Creatinine 0.78 0.70 - 1.20 mg/dL CERNER MILL ENNIUM Comment: Please note that the pediatric reference intervals supplied above were not validated at [facility]. Results from pediatri c patients should be interpreted in conjunction to the patient's age, height and muscle mass. Sodium 136 135 - 145 mmol/L CERNER YEMI NIUM Potassium 3.7 3.5 - 5.0 mmol/L CERNER YEMI NIUM Comment: Please note: ??Patients with WBC >100,00 0 may have falsely elevated Potassium levels. ??For accurate Potassium quantif ication in these patients send serum separator tube (gold top) for subsequent determinations. ??Contact the Clinical Chemistry Laboratory if there are any qu estions. Chloride 98 98 - 107 mmol/L CERNER MILLENN IUM CO2 28 22 - 31 mmol/L CERNER MILLENNI UM Anion Gap 10 5 - 15 mmol/L CERNER MILLENNIU M Calcium 9.6 8.5 - 10.5 mg/dL CERNER YEMI NIUM [...] bu t increases with age. At present, DEP does NOT recommend usi ng the MDRD [...] Location / / Volume Laterality Blood specimen 08/27/2012 4:27 PM 012 4:40 (specimen) EDT PM EDT Resulting Agency Comment Spec In Lab Andrew Genao MD CHEMISTRY ORDERABLES Performing Organization Address City/State/[place] [address] CERNER MILLENNIUM Creatinine, serum (08/27/2012 4:27 PM EDT) athologist Signature Creatinine 0.78 0.70 - 1.20 CERNER mg/dL MILLENNIUM Comment: Please note that the pediatric reference intervals supplied above were not validated at [facility]. Results from pediatri c patients should be interpreted in conjunction to the patient's age, height and muscle mass. Estimated GFR >60 >=60 CERNER MILLENNIU M [...] Location / / Volume Laterality Blood specimen 08/27/2012 4:27 PM 012 4:40 (specimen) EDT PM EDT Resulting Agency Comment Spec In Lab Andrew Genao MD CHEMISTRY ORDERABLES Performing Organization Address City/State/ZIP [place] [address] CERNER MILLENNIUM Electrolytes panel (08/27/2012 4:27 PM EDT) athologist Signature Sodium 136 135 - 145 CERNER mmol/L MILLENNIUM Potassium 3.7 3.5 - 5.0 CERNER mmol/L MILLENNIUM Comment: Please note: ??Patients with WBC >100,00 0 may have falsely elevated Potassium levels. ??For accurate Potassium quantif ication in these patients send serum separator tube (gold top) for subsequent determinations. ??Contact the Clinical Chemistry Laboratory if there are any qu estions. Chloride 98 98 - 107 mmol/L CERNER MILLENN IUM CO2 28 22 - 31 mmol/L CERNER MILLENNI UM Anion Gap 10 5 - 15 mmol/L CERNER MILLENNIU M Specimen Anatomical Collection Method Collection Time Receive d Time (Source) Location / / Volume Laterality Blood specimen 08/27/2012 4:27 PM 012 4:40 (specimen) EDT PM EDT Resulting Agency Comment Spec In Lab Andrew Genao MD CHEMISTRY ORDERABLES Performing Organization Address City/[facility]/ZIP [place] [address] CERNER MILLENNIUM (ABNORMAL) CBC (with Diff) (08/27/2012 4:27 PM EDT) athologist Signature WBC 7.8 4.0 - 10.0 CERNER x10(3)/mcL MILLENNIUM RBC 4.79 3.93 - CERNER 5.22 MILLENNIUM x10(6)/mcL Hemoglobin 14.4 11.2 - CERNER 15.7 gm/dL MILLENNIUM Hematocrit 42.6 34.0 - CERNER 45.0 % MILLENNIUM MCV 88.9 79.0 - CERNER 94.0 fL MILLENNIUM MCH 30.1 26.6 - CERNER 32.2 pg MILLENNIUM MCHC 33.8 32.0 - CERNER 36.5 gm/dL MILLENNIUM Platelets 268 145 - 370 CERNER x10(3)/mcL MILLENNIUM RDWSD 46.1 (H) 35.0 - CERNER 46.0 fL MILLENNIUM RDWCV 14.3 10.9 - CERNER 14.4 % MILLENNIUM MPV 10.0 9.0 - 12.0 CERNER fL MILLENNIUM Specimen Anatomical Collection Method Collection Time Receive d Time (Source) Location / / Volume Laterality Blood specimen 08/27/2012 4:27 PM 012 4:41 (specimen) EDT PM EDT Resulting Agency Comment Spec In Lab Andrew Genao MD HEMATOLOGY ORDERABLES Performing Organization Address City/State/[place] [address] CERNER MILLENNIUM Creatinine, serum (08/27/2012 12:01 PM EDT) athologist Signature Creatinine 0.71 0.70 - 1.20 CERNER mg/dL MILLENNIUM Comment: Please note that the pediatric reference intervals supplied above were not validated at [facility]. Results from pediatri c patients should be interpreted in conjunction to the patient's age, height and muscle mass. Estimated GFR >60 >=60 KATHY Vargas Comment: The National Kidney Disease Education Pr [...] Location / / Volume Laterality Blood specimen 08/27/2012 12:01 2 (specimen) PM EDT 12:22 PM EDT Resulting Agency Comment Spec In Lab Andrew Genao MD CHEMISTRY ORDERABLES Performing Organization Address City/State/ZIP Code Phon e Number [address] CERNER MILLENNIUM BUN (08/27/2012 12:01 PM EDT) P athologist Signature BUN 18 8 - 18 CERNER mg/dL MILLENNIUM Specimen Anatomical Collection Method Collection Time Receive d Time (Source) Location / / Volume Laterality Blood specimen 08/27/2012 12:01 2 (specimen) PM EDT 12:22 PM EDT Resulting Agency Comment Spec In Lab Andrew Genao MD CHEMISTRY ORDERABLES Performing Organization Address City/State/ZIP Code Phon e Number [address] CERNER MILLENNIUM documented in this encounter Visit Diagnoses Diagnosis AAA (abdominal aortic aneurysm) - Primar y Abdominal aneurysm without mention of ru pture AAA (abdominal aortic aneurysm) Abdominal aneurysm without mention of ru pture documented in this encounter
--- OUTSIDE RECORDS SUMMARY | 2022-05-23 17:35 | XMS_ITS | Encounter Summary ---
:1940 Author Organization [facility] [place] [address] Care Team Providers Name Role Phone Unavailable Primary Care Provider Unavailable Encounter Details Date Type Department Care Team Description 07/14/2011 Orders Only Vascular Surgery at [facility] Rubin Genao MD [facility] [place] [address] VASCULAR SURGERY [phone] [place] [id number] (Wo rk) Social History Tobacco Use Types [...] Procedure Name Priority Date/Time Associated Comments Diagnosis FILM LIBRARY STORAGE Routine 07/14/2011 11:26 AM Results for this ONLY ULTRASOUND EDT procedure ar e in STUDY the results section. documented in this encounter Results FILM LIBRARY- STORAGE ONLY ULTRASOUND STUDY (07/14/2011 11:26 AM EDT) Specimen (Source) Anatomical Collection Method Collection Time Re ceived Time Location / / Volume Laterality 07/14/2011 11:26 AM EDT Narrative RAD - 02/21/2014 11:38 AM EDT This is a non-reportable exam. Procedure Note Gonzalo Maurice - 02/21/2014Formatting of t his note might be different from the original. This is a non-reportable exam. Rubin Genao MD IMG FILM LIBRARY ORDERABLES Performing Organization Address City/State/ZIP Code Phon e Number DH RAD RAD [address] [facility] [place] [address] documented in this encounter Visit Diagnoses Not on filedocumented in this encounter
--- OUTSIDE RECORDS SUMMARY | 2022-05-23 17:35 | XMS_ITS | Encounter Summary ---
:1940 [place] [address] Care Team Providers Name Role Phone Radha Perez MD Primary Care Provider Reason for Referral Diagnostic Test (Routine) - Closed Specialty Diagnoses / Procedures Referred By Contact Refer red To Contact Radiology Diagnoses Adhesive capsulitis of right shoulder Susana Israel PA [facility] Rad Xray Procedures XR Fluoro Guided Joint Injection [facility] 1 [facility] [place] [address] [place] [address] Referral ID Status Reason Start Date Expiration Date Visits V isits Requested Authorized [id number] Closed Specialty 04/06/2021 10/07/2022 1 1 Service Requested Reason for Visit Diagnostic Test (Routine) - Closed Specialty Diagnoses / Procedures Referred By Contact Refer red To Contact Radiology Diagnoses Adhesive capsulitis of right shoulder Susana Israel PA [facility] Rad Xray Procedures XR Fluoro Guided Joint Injection [facility] 1 [facility] [place] [address] [place] [address] Referral ID Status Reason Start Date Expiration Date Visits V isits Requested Authorized [id number] Closed Specialty 04/06/2021 10/07/2022 1 1 Service Requested Encounter Details Date Type Department Care Team Description 04/27/2021 Hospital Encounter XRay at [facility] Sanjiv GaytanSandraNabil, Adhesive capsulitis [address] JIMENEZ of right shoulder [facility] [id number] [place] [phone] [place] [address] Social History Tobacco Use Types Packs/Day Years [...] on file documented as of this encounter Discharge Instructions Patient InstructionsHeather Jones - 04/27/2021 10:59 AM EDT Post Injection Patient Instructions You received an injection by LUCILLE RICHARDS in the diagnostic section of radiology. Procedure: RIGHT SHOULDER INJECTION In the days following the injection: ??? Low intensity movement and exercise of the affected joint. ??? Avoid movements that worsen pain. During the first 48 hours following the injection you may experience mild discomfort at the injection site. If you experience pain or discomfort in the affected area, do the following: ??? Apply cold compress to the affected area. ??? If allowed by your physician, take an anti-inflammatory medication such as ibuprofen (example: Advil), Acetaminophen 9example: Tylenol) or Aspirin. IMPORTANT The risk of infection exists whenever the skin is punctured. The risk can be minimized by keeping the injection site clean. However, be aware of the following signs of an infection: ??? Redness and swelling at the injection site. ??? Increased pain. ??? Fever and/or chills. ??? Decreased range of motion in the joint near the injection site. If you experience any of the signs of infection listed above, telephone the diagnostic section of radiology at [phone]. documented in this encounter Medications at Time of Discharge Medication Sig Dispensed Refills Start Date End Date losartan (COZAAR) 100 mg 0 02/17/2021 Tablet valACYclovir (Valtrex) 500 0 1 mg Tablet acetaminophen (TYLENOL) Take 2 tablets by 30 tablet 0 09/18 325 mg tablet mouth every 6 hours as needed for Pain and Fever. multivitamin (THERAGRAN) Take 1 tablet by 0 09/1808/20/2021 tablet mouth daily. aspirin 325 mg EC tablet Take 81 mg by 0 03/05/20 09 08/20/2021 mouth. clopidogrel (PLAVIX) 75 mg 75 MG = 1 0 9 08/20/2021 tablet Tablet(s), PO, Once daily documented as of this encounter Plan of Treatment Not on filedocumented as of this encounter Procedures Procedure Name Priority Date/Time Associated Diagnosis Comme nts XR FLUORO INJECTION Routine 04/27/2021 11:19 AM Adhesive capsu litis Results for this DRAINAGE JOINT LG EDT of right shoulder proce dure are in RIGHT the results section. documented in this encounter Results XR Fluoro Guided Joint [...] who have questions please contact the health tree care foreman that requested your imaging first. ? Electronically signed by: Lucille landers [facility] ([phone]), at 04/27/2021 1:36 PM Narrative 04/27/2021 1:36 PM EDT HISTORY: Right shoulder pain RIGHT SHOULDER GH JOINT INJECTION UNDER FLUOROSCOPY TECHNIQUE: After an extensive conversation with the patient regarding risks and benefits, oral and written consent were obtained.? A pre- procedural time-out was performed, including review of the patie nt's relevant electronic medical record and allergies, as per [facility] protocol. The patient was placed supine on [...] shoulder joint space. 2. ??PAIN SCORE: ??Before: 9/10 ??After: /10 3. Fluoroscopy time: 0.05 minutes 4. Medications: ??Lidocaine 1% - <5 ml, for subcutaneou s anesthesia ??Ropivacaine HCL ??0.5% - 4 ml ??Triamciolone Acetonide ??- 40 mg COMPLICATIONS: ??None immediate. POST-PROCEDURE CARE: Information regardi ng monitor of infection, post- procedural pain and management of steroi d flare were reviewed with patient. Procedure Note Lucille Richards, ANNIKA - 04/27/2021Forma tting of this note might be different from the original. HISTORY: Right shoulder pain RIGHT SHOULDER GH JOINT INJECTION UNDER FLUOROSCOPY TECHNIQUE: After an extensive conversation with the patient regarding risks and benefits, oral and written consent were obtained.? A pre- procedural time-out was performed, including review of the patie nt's relevant electronic medical record and allergies, as per [facility] protocol. The patient was placed supine on [...] shoulder joint space. 2. PAIN SCORE: Before: 9/10 After: 2/10 3. Fluoroscopy time: 0.05 minutes 4. Medications: [...] ho have questions please contact the health tree care foreman that requested your imaging first. Margo Gaytan MD IMG FLUORO ORDERABLES documented in this encounter Visit Diagnoses Diagnosis Adhesive capsulitis of right shoulder Adhesive capsulitis of shoulder documented in this encounter Administered Medications Inactive Administered Medications - up to 3 most recent administrations Medication Order MAR Action Action Date Dose Rate Site ROpivacaine (PF) 0.5% (5 mg/mL) 20 Given 04/27/2021 11:14 AM EDT mg with methylPREDNISolone acetate (40 mg/mL) 40 mg injection (Radiology Prep) Intra-articular, ONCE, 1 dose, On Tu04/27/21 at 1115, For Radiology Use Only: Medium-Large Joint Injection documented in this encounter Care Teams Coater Helper Relationship Specialty Start Date End Date Radha Perez MD PCP - General General Internal Medicine 03/31/21 [address] [place] [address] documented as of this encounter
--- OUTSIDE RECORDS SUMMARY | 2022-05-23 17:35 | XMS_ITS | Encounter Summary ---
:1940 Author Organization [facility] [place] [address] Care Team Providers Name Role Phone Radha Perez MD Primary Care Provider Encounter Details Date Type Department Care Team Description 04/06/2021 Hospital Encounter XRay at [facility] Margo Gaytan, Jonah left [address] [place] [address] JIMENEZ shoulder pain [facility] [id number] [place] [phone] [place] [address] Social History Tobacco Use Types Packs/Day Years [...] Take 2 tablets by 30 tablet 0 11/06 /2012 325 mg tablet mouth every 6 hours [...] Priority Date/Time Associated Diagnosis Comme nts XR SHOULDER LEFT Routine 04/06/2021 12:12 PM Chronic left Resu lts for this EDT shoulder pain procedure are in the results section. documented in this encounter Results XR Shoulder Left (Generic) (04/06/2021 12:12 PM EDT) Anatomical Region Laterality Modality Shoulder Left Digital Radiography Specimen (Source) Anatomical Location Collection Method / Collectio n Time Received Time / Laterality Volume Impressions 04/06/2021 12:56 PM EDT 1. ??No fracture or dislocation 2. ??Mild AC joint osteoarthropathy. Thank you for letting us participate in the care of this patient. ??If you are a health care provider and have any questi ons regarding this report, please contact the number below. ??For patients who have questions please contact the health career coach that requested your imaging first. ? Narrative 04/06/2021 12:56 PM EDT EXAMINATION: XR SHOULDER LEFT (GENERIC) CLINICAL HISTORY: CHRONIC LT SHOULDER PA IN, , entered by ordering service TECHNIQUE: 4 views left shoulder COMPARISON: None FINDINGS: Bones: No fracture is present. AC Joint: There are osteophytes and caps ular thickening but ??no os acromion. Normal AC joint alignment Glenohumeral joint: Small osteophytes. N o dislocation Soft tissue: periarticular calcifications- none Included lung parenchyma-no opacities. Procedure Note Nicci Chavez MD - 04/06/2021Formatt ing of this note might be different from the original. EXAMINATION: XR SHOULDER LEFT (GENERIC) CLINICAL HISTORY: CHRONIC LT SHOULDER PA IN, , entered by ordering service TECHNIQUE: 4 views left shoulder COMPARISON: None FINDINGS: Bones: No fracture is present. AC Joint: There are osteophytes and caps ular thickening but no os acromion. Normal AC joint alignment Glenohumeral joint: Small osteophytes. N o dislocation Soft tissue: periarticular calcifications- none Included lung parenchyma-no opacities. IMPRESSION 1. No fracture or dislocation 2. Mild AC joint osteoarthropathy. Thank you for letting us participate in the care of this patient. If you are a health care provider and have any questi ons regarding this report, please contact the number below. For patients w ho have questions please contact the health career coach that requested your imaging first. Margo Gaytan MD IMG DX ORDERABLES documented in this encounter Visit Diagnoses Diagnosis Chronic left shoulder pain Pain in joint, shoulder region documented in this encounter Care Teams Radiation Therapy Technician Relationship Specialty Start Date End Date Radha Perez MD PCP - General General Internal Medicine 03/31/21 [address] [place] [address] documented as of this encounter
--- OUTSIDE RECORDS SUMMARY | 2022-05-23 17:35 | XMS_ITS | Encounter Summary ---
:1940 Author Organization [facility] [place] [address] Care Team Providers Name Role Phone Unavailable Primary Care Provider Unavailable Encounter Details Date Type Department Care Team Description 08/27/2012 Orders Only Vascular Surgery at [facility] (a bdominal aortic [facility] aneurysm) (Primary Dx) [place] [address] Social History Tobacco Use Types Packs/Day Years Used Date Former Smoker Smokeless Tobacco: Never Used Comments: quit 25 years ago Alcohol Use Standard Drinks/Week Comments Not Asked 0 (1 standard drink = 0.6 oz pure alcoho l) Sex Assigned at Date Recorded Not on file documented as of this encounter Plan of Treatment Not on filedocumented as of this encounter Results Creatinine, serum (08/27/2012 12:01 PM EDT) athologist Signature Creatinine 0.71 0.70 - 1.20 CERNER mg/dL [facility] Comment: Please note that the pediatric reference intervals supplied above were not validated at [facility]. Results from pediatri c patients should be [...] EDT Resulting Agency Comment Spec In Lab Rubin Genao MD CHEMISTRY ORDERABLES Performing Organization Address City/State/[place] [address] CERNER MILLENNIUM BUN (08/27/2012 12:01 PM EDT) athologist Signature BUN 18 8 - 18 CERNER mg/dL [facility] Specimen Anatomical Collection Method Collection Time Receive d Time (Source) Location / / Volume Laterality Blood specimen 08/27/2012 12:01 2 (specimen) PM EDT 12:22 PM EDT Resulting Agency Comment Spec In Lab Rubin Genao MD CHEMISTRY ORDERABLES Performing Organization Address City/State/ZIP [place] [address] KATHY MICHAUD documented in this encounter Visit Diagnoses Diagnosis AAA (abdominal aortic aneurysm) - Primar y Abdominal aneurysm without mention of ru pture documented in this encounter
--- OUTSIDE RECORDS SUMMARY | 2022-05-23 17:35 | XMS_ITS | Encounter Summary ---
:1940 Author Organization [facility] [place] [address] Care Team Providers Name Role Phone Unavailable Primary Care Provider Unavailable Encounter Details Date Type Department Care Team Description 09/17/2012 Surgery Main Operating Room Andrew Genao MD @[facility], [facility] MODULAR AORTIC, [facility] DR WEAHTERS LIMB, ANEURX [facility] VASCULAR SURG ZANA (WRVU 23.79) [place] [address] [place] [id number] [phone] Social History Tobacco Use Types Packs/Day Years [...] For any questions or concerns please call [phone] Lillian Parisi RN Vascular Nurse Clinician documented in this encounter Medications at Time of Discharge Medication Sig Dispensed Refills Start Date End Date acetaminophen (TYLENOL) Take 2 tablets by 30 tablet 0 09/18 325 mg tablet mouth every 6 hours as needed for Pain and Fever. Patten-3 Fatty Acids (FISH Take 1 capsule by 0 04/201204/06/2021 OIL) 500 mg CpDR mouth daily. multivitamin (THERAGRAN) Take 1 tablet by 0 09/1808/20/2021 tablet mouth daily. cholecalciferol, Vitamin Take 1 tablet by 0 09/1804/06/2021 D3, (VITAMIN D-3) 400 unit mouth daily. tablet Sneyykv-Gfg-Mwk Take 1 tablet by 0 09/18/2012 U0-Soibfo-Wj (CALCIMATE) mouth daily. Tab aspirin 325 mg [...] afternoon vs. Tomorrow depending upon progress today. SilverVictor Manuel MD - 09/17/2012 6:22 PM EST Vascular [...] Peng RN for dinner coverage 1999 Shefali Tavarez Cbc called to Dr Rivero Pt [place] [...] however. She has a history of2 prior NV. No current CP or SOB. Denies claudication Atherosclerotic Risk Factors: (n) DM (n) HTN (y) Hyperlipidemia (former) Tobacco Other Past Medical History/Risk Factors: (y) Previous NV (n) Angina (n) CHF (n) Arrythmia (n) [...] -CBC: 7.8>14.4<268 -Creat: 0.78 Studies: Report from [facility]. 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 Neck is [...] 09/19/2012 11:52 AM ESTAssociated Order(s): SCAN DOC: MUTUEL MACHINE OPERATOR; SCAN DOC: MUTUEL MACHINE OPERATOR documented in this encounter Miscellaneous Notes OR [...] of Abdominal Aortic Aneurysm using Bifurcated Endograft (Bainbridge Excluder); Bilateral open femoral access Hospital Course: [...] for Pain and Fever. 30 tablet ??? Patten-3 Fatty Acids (FISH OIL) 500 mg CpDR Take 1 capsule by mouth daily. ??? multivitamin (THERAGRAN) tablet Take 1 tablet by mouth daily. ??? cholecalciferol, Vitamin D3, (VITAMIN D-3) 400 unit tablet Take 1 tablet by mouth daily. ??? Jusujtl-Qpz-Bmt Q1-Gyhbrw-Wz (CALCIMATE) Tab Take 1 tablet by mouth daily. ??? DISCONTD: OXYcodone (ROXICODONE) 5 mg immediate release tablet Take 1-2 tablets by mouth every 4hours as needed for Pain (mild to moderate pain). 60 tablet 0 ??? DISCONTD: Tcsyirr-Qer-Zeh K7-Njphix-Iv (CALCIMATE) Tab Take 1 tablet by mouth daily. Updated Allergies/ADRs: Allergies Allergen Reactions ??? Latex Rash Skins montemayor and becomes itchy. PCP: MECHE GERARD MD Scheduled Appointments: Future Appointments Date Time Provider Department Center 09/27/2012 1:00 PM [id number] ROOM, [facility] CAT None 09/27/2012 2:00 PM 1422-ANDREW GENAO LEDerrell [facility] Outpatient Services/Studies: CT abdomen & pelvis [...] For any questions or concerns please call [phone] Lillian Parisi artist relationship manager Nurse Clinician Victor Manuel Deal MD Plan of Care - Ju Duke RN - 09/17/2012 11:06 PM EST Problem: Trauma/Injury Risk (Adult, Obstetric) Goal: Trauma/Injury Risk: Absence of Trauma/Injury/Falls Outcome: Absent and monitoring Pt is resting comfortably in bed with SCDs on, to encourage pt to get out of bed window caser. See doc flowsheets for interventions. 1645: Pt up out of bed, ambulated 1x around unit independently. Problem: Skin Integrity Impairment, Risk/Actual (Adult, Obstetric) Goal: Skin Integrity Impairment, Risk/Actual: Skin Integrity/Wound Healing Outcome: Absent and monitoring Bilateral groin sites are CDI, TAHMINA, dermabond, no hematoma, no signs/no symptoms of infection. Problem: Pain, Acute (Adult, Obstetric) Goal: Acute Pain: Acceptable Pain Control/Comfort Level - Pain, Acute (Adult, Obstetric) Outcome: Absent and monitoring Pt denies pain at this time, will continue to monitor and re-assess. Op Note - Brian Soliman MD - 09/17/2012 4:00 PM EST [facility] Operative Note Patient Name: Peg Gao : [id number] MR#: [id number] Case Date: 09/17/2012 Surgeon: Surgeon(s) and Role: * ANRDEW GENAO MD - Primary * BRIAN SOLIMAN MD - Fellow Preoperative diagnosis: Infrarenal AAA Postoperative diagnosis: Same Procedure(s): Endovascular Repair of Abdominal Aortic Aneurysm using Bifurcated Endograft (Bainbridge Excluder); Bilateral open femoral access General Estimated Blood Loss: 250 cc UOP: 850 cc IV Fluids: 2100 cc crystalloid Drains: none Dye: 73 cc Visipaque Fluoro Time: 12.53 min Implants: Bainbridge Excluder [id number] (main device), [id number] (right iliac limb), [id number] (left iliaclimb) Disposition: awakened from anesthesia, extubated [...] we had J-wire access, we up-sized to 8-Marshallese sheaths. On the left side, we then [...] exchanged on the right side for a 12-Marshallese DrySeal sheath over the Zulmea wire. Once this was in place, we exchanged for a Kumpe catheter that was placed up at the level just above the renal arteries. The Zulema wire was removed, and the catheter was hooked up to power injector until we were ready to shoot an aortogram. On the left side, we had already planned on placing the main-body device. First we exchanged the 8-Marshallese sheath for an 18-Marshallese DrySeal sheath. Her [place] iliacs were very small and we were concerned about the possible rupture so we went very slow and carefully doddered up these prior to placing the 18-Marshallese sheath. This went smoothly and was advanced up into the infrarenal aorta. Once we had an 18-Marshallese sheath in place, we then took our main-body Bainbridge device. We first placed it under fluoroscopy [...] overlapping below the flow divider within the Bainbridge device. Once this was done, we then [...] Dx: AAA Post-op Dx: Same Procedure: EVAR, Bainbridge Surgeons: Lona Genao Anesthesia: GET Fluids: 2100 crystaloid Urine: 850 EBL: 250 Contrast: 73 Findings: Bainbridge [id number] via open left fem access, 16x95 left iliac extension; [id number] via open rightfemoral access Disposition: to PACU [...] IR OR VASC ANGIOGRAM Imaging Routine Once [facility] N (for Radiant IMAGE STORAGE ONLY use) for 1 Occurrences starting 2011 until 2 documented as of this encounter Procedures Procedure Name Priority Date/Time Associated Comments Diagnosis IMPLANTABLE DEVICES 09/19/2012 11:52 Resu lts for this SCAN AM EST procedure are i n the results section. MUTUEL MACHINE OPERATOR SCAN 09/19/2012 11:52 Res ults for this [...] section. TYPE AND SCREEN Routine 09/17/2012 12:24 ([facility]/JUDAH) PM EST documented in this encounter Results SCAN DOC: MUTUEL MACHINE OPERATOR (09/19/2012 11:52 AM EST) Narrative 09/19/2012 1:40 PM EST Procedure Note Provider, Scanning - 09/19/2012 11:52 AM EST Scanning Provider MEDIA MGR SCAN EXT ORDR/RSLT SCAN DOC: IMPLANTABLE DEVICES (09/19/2012 11:52 AM EST) Narrative 09/19/2012 11:52 AM EST Procedure Note Provider, Scanning - 09/19/2012 11:52 AM EST Scanning Provider MEDIA MGR SCAN EXT ORDR/RSLT (ABNORMAL) DIFFERENTIAL, AUTOMATED (09/18/2012 6:28 AM EST) [facility] gist Method Time Signature Neutrophils % 75.8 [...] yielding IG's will be scanned manually for shaw huitron. If this scan disagrees with the automated [...] Organization Address City/State/ZIP Code Phon e Number [place] [phone] CERNER MILLENNIUM (ABNORMAL) Basic [...] intervals supplied above were not validated at [facility]. Results from pediatri c patients should be [...] Comment: The National Kidney Disease Education Pr ogfernando (NKDEP) has recommended all laboratories report estimated [...] Organization Address City/State/[place] [address] CERNER MILLENNIUM (ABNORMAL) CBC [...] Organization Address City/State/ZIP Code Phon e [place] [address] CERNER MILLENNIUM (ABNORMAL) Hemogram [...] Organization Address City/State/[place] [address] CERNER MILLENNIUM Hemogram (09/17/2012 [...] Organization Address City/State/ZIP [place] [address] CERNER MILLENNIUM (ABNORMAL) BLOOD [...] Comment: Total Hemoglobin (in gm/dL) ?Based on [facility] Hematology ran ges: ?Age ?Referen ce Range [...] 3.4 (L) 3.5 - 5.0 mmol/L CERNER [place] LLENNIUM Comment: Please note: ??Patients with WBC [...] 108 (H) 98 - 107 mmol/L CERNER [place] LLENNIUM Gluc Whole Bld 118 60 - 199 mg/dL [facility] Comment: Diabetes: >=200 mg/dL plus [...] Organization Address City/State/Z[place] [address] CERTRAV MILLENNIUM ANTIBODY SCREEN (09/17/2012 12:24 PM EST) Analysis Performed At Path logist Time Signature Ab Screen Negative CERNER Interp MILLENNIUM Expires at [id number] KATHY 2358 on: MILLENNIUM Specimen Anatomical Collection Method Collection Time Receive d Time (Source) Location / / Volume Laterality Blood specimen 09/17/2012 12:24 2 (specimen) PM EST 12:29 PM EST Resulting Agency Comment Spec In Lab Andrew Genao MD BLOOD BANK ORDERABLES Performing Organization Address City/State/ZIP Code Phon e Number [address] [facility] ABO/RH TYPING (09/17/2012 12:24 PM EST) P athologist Signature ABORh Type O Pos [facility] Specimen Anatomical Collection Method Collection Time Receive d Time (Source) Location / / Volume Laterality Blood specimen 09/17/2012 12:24 2 (specimen) PM EST 12:29 PM EST Resulting Agency Comment Spec In Lab Andrew Genao MD BLOOD BANK ORDERABLES Performing Organization Address City/[facility]/ZIP Code Phon e Number [address] [facility] documented in this encounter Visit Diagnoses Diagnosis AAA (abdominal aortic aneurysm) - Primar y Abdominal aneurysm without mention of ru pture AAA (abdominal aortic aneurysm) Abdominal aneurysm without mention of ru pture documented in this encounter Administered Medications Inactive Administered Medications - up to 3 most recent administrations Medication Order MAR Action Action Date Dose Rate Site cellulose (fibrillar), Given 09/17/2012 3:34 PM 1 each 19- Surgical Site oxidized (SURGICEL) 1 x EST 2 pad ONCE PRN, Starting on Mon09/17/12 at 1534, Until Mon09/17/12 at 2048, Intra-Operative (Intra-Procedure), Routine gelatin adsorbable (GELFOAM) sponge Given 09/17/2012 2:28 PM EST 3 each ONCE PRN, Starting on Mon09/17/12 at 1428, Until Mon09/17/12 at 2048, Intra-Operative (Intra-Procedure) heparin (porcine) injection Given 09/17/2012 2:17 PM EST 5,000 Units ONCE PRN, Starting on Mon09/17/12 at 1417, Until Mon09/17/12 at 2048, Intra-Operative (Intra-Procedure), Routine iodixanol (VISIPAQUE) 320 Given 09/17/2012 3:24 PM 250 mLs 19- Surgical Site mg/mL injection EST ONCE PRN, Starting on Mon09/17/12 at 1524, Until Mon09/17/12 at 2048, Per Protocol, Intra-Operative (Intra-Procedure), Routine thrombin (bovine) (THROMBIN-JMI) Given 09/17/2012 2:28 PM EST 5, 000 Units solution ONCE PRN, Starting on Mon09/17/12 at 1428, Until Mon09/17/12 at 2049, Intra-Operative (Intra-Procedure) documented in this encounter Active and Recently Administered Medications Due to Daylight Saving Time, this section may contain times in both EDT and EST. Scheduled Medication Order 09/16/2012 09/17/2012 09/18/2012 aspirin EC tablet 325 mg (CANCELED) 1833 (Given - Provider: Raphael Nathan, LAURA) 09 (Given - Provider: Bertin akers, LAURA) 325 mg, Oral, DAILY, First dose on [...] 2143 (Given - Provider: Ju Duke RN) 050 (Given - Provider: Ju ferreira RN) 1 [...] 2143 (Given - Provider: Ju Duke RN) 899 (Given - Provider: Bertin akers RN) 100 mg, Oral, 2 TIMES DAILY, First dose on Mon09/17/12 at 2115, Until Discontinued, Routine sodium chloride 0.9 % flush 5 mL (CANCELED) 2114 (Given - Provider: Ju Duke, LAURA) 0915 (Given - Provider: Bertin akers RN) [...] (CANCELED) 1800 (New Bag - Provider: Raphael Nathan, LAURA) 50 mL/hr, at 50 mL/hr, Intravenous, CONT INUOUS, Starting Mon09/17/12 at 1815, Until Mon09/18/12 at 0730 PRN Medication Order 09/16/2012 09/17/2012 09/18/2012 acetaminophen (TYLENOL) tablet 650 mg 23 34 (Given - Provider: Ju Duke, LAURA) 650 mg, Oral, EVERY 6 HOURS PRN, [...] Starting Mon09/17/12 at 1417, Until Mon09/17/12 at 2048, Intra- Operative (Intra-Procedure), Routine HYDROmorphone (DILAUDID) injection 0.2-0.4 mg (CANCELED) 1654 (Given - Provider: Ryland Adorno RN)1707 (Given - Provider: Ryland Adorno RN) 0.2-0.4 mg, Intravenous, EVERY 5 MIN PRN , Starting Mon09/17/12 at 1611, Until Mon09/17/12 at 2021, [...] Starting Mon09/17/12 at 1524, Until Mon09/17/12 at 2048, Per Protocol, Intra-Operative (Intra-Procedure), Routine OXYcodone (ROXICODONE) immediate release tablet 5 mg 5 mg, Oral, EVERY 4 HOURS PRN, Starting Mon09/17/12 at 1754, Until Mon09/18/12 at 1235, Pain, mild to moderate pain, May give additional 5 mg in 30 minutes times 1 if pain not relieved. , Routine thrombin (bovine) (THROMBIN-JMI) solution (CANCELED) 1428 (Given - Provider: Andrew Genao MD) ONCE PRN, Starting Mon09/17/12 at 1428, For 1 dose, Intra-Operative (Intra-Procedure) documented in this encounter
--- OUTSIDE RECORDS SUMMARY | 2022-05-23 17:35 | XMS_ITS | Encounter Summary ---
:1940 Author Organization [facility] [place] [address] Care Team Providers Name Role Phone Radha Perez MD Primary Care Provider Encounter Details Date Type Department Care Team Description 04/08/2021 Telephone Orthopaedics at [facility] [place] [phone] Social History Tobacco Use Types Packs/Day [...] this encounter Miscellaneous Notes Telephone Encounter - Rocío Mcdaniel - 04/08/2021 1:24 PM EDT Left a detailed message in regards to Inj that was Batch scheduled for Radiology 04/27/21 with a 11:00AM Arrival time in security tech Area 3T and that a tractor driver is required documented in this encounter Plan of Treatment Not on filedocumented as of this encounter Visit Diagnoses Not on filedocumented in this encounter Care Teams It Applications Manager Relationship Specialty Start Date End Date Radha Perez MD PCP - General General Internal Medicine 03/31/21 [address] [place] [address] documented as of this encounter
--- OUTSIDE RECORDS SUMMARY | 2022-05-23 17:36 | XMS_ITS | Encounter Summary ---
:1940 Author Organization [facility] Address [address] [place] [address] Care Team Providers Name Role Phone Galen Haines MD Primary Care Provider Encounter Details Date Type Department Care Team Description 06/13/2018 Historical Results [facility] - Adriane Smith Only [facility] [place] Resul ts M, EYE TECHNICIAN [address] [place], [place] [id number] [place] [address] [address] [place] [address] Social History Tobacco Use Types Packs/Day Years Used Date Never Assessed Sex Assigned at Date Recorded Not on file documented as of this encounter Plan of Treatment Not on filedocumented as of this encounter Procedures Procedure Name Priority Date/Time Associated Diagnosis Comme nts XR CHEST 2 VIEWS 06/13/2018 14:48 EDT Res ults for this procedure are i n the results section. documented in this encounter Results XR CHEST 2 VIEWS (06/13/2018 14:48 EDT) Specimen Narrative [facility] - 06/13/2018 14:51 EDT ? EXAM: RADIOLOGY EXPRESS CARE/EXP CARE HEMANT EX. D/ (1441) ? CLINICAL INFORMATION: ? JO6.9 URI WITH COUGH AND CONGESTI ON ? EXP CARE CHEST PA ?? LAT ? Signs and Symptoms/Comments: ??SUKHDEEP 6.9 URI WITH COUGH AND CONGESTION ? Comparisons: CT abdomen pelvis on 07/13/2016. ? FINDINGS: ? PA and lateral views of the chest were performed. Mild linear ? scarring is present in the right upper and left lower lungs. No acute ? lung findings are identified. No pneumothorax or pleural effusion is ? present. A small hiatal hernia is better appreciated on the ? comparison CT of 2016. The aorta is calcified and mildly tortuous. ? The pulmonary vascularity is unre markable. Multilevel thoracic ? degenerative changes are present. An abdominal aortic endograft is ? partially included on the field-o f-view. ? IMPRESSION: ? No acute cardiopulmonary process. Chronic findings detailed above. ? REPORT SIGNED IN OTHER VENDOR SYSTEM 06/13/2018 ?Reported B y: Brian Gaines MD ? CC: ? Transcribed Date/Time: 06/13/2018 (1451) ? Flanging Roll Operator: ? Printed Date/Time: 05/04/2019 (14 49) ? PAGE 1 ? Sade d Report ? Procedure Note Brian Gaines MD - 09/19/2019 EXAM: RADIOLOGY EXPRESS CARE/EXP CARE C HE EX. D/ (1441) CLINICAL INFORMATION: JO6.9 URI WITH COUGH AND CONGESTION EXP CARE CHEST PA LAT Signs and Symptoms/Comments: JO6.9 URI WITH COUGH AND CONGESTION Comparisons: CT abdomen pelvis on 2015. FINDINGS: PA and lateral views of the chest were performed. Mild linear scarring is present in the right upper and left lower lungs. No acute lung findings are identified. No pneumo thorax or pleural effusion is present. A small hiatal hernia is singh r appreciated on the comparison CT of 2016. The aorta is pepe cified and mildly tortuous. The pulmonary vascularity is unremarkab le. Multilevel thoracic degenerative changes are present. An ab dominal aortic endograft is partially included on the tlywi-nv-gtru . IMPRESSION: No acute cardiopulmonary process. Chron ic findings detailed above. REPORT SIGNED IN OTHER VENDOR SYSTEM 06/13/2018 Reported By: Brian Gaines MD CC: Transcribed Date/Time: 06/13/2018 (1733 ) Flanging Roll Operator: Printed Date/Time: 05/04/2019 (2711) PAGE 1 Signed Report Performing Organization Address City/State/ZIP Code Phon e Number [facility] documented in this encounter Visit Diagnoses Not on filedocumented in this encounter Care Teams Wire Winder Relationship Specialty Start Date End Date Galen Haines MD PCP - General 09/12/13 03/12/[address] [place] [phone] documented as of this encounter
--- OUTSIDE RECORDS SUMMARY | 2022-05-23 17:36 | XMS_ITS | Encounter Summary ---
:1940 Author Organization [facility] Address [address] [place] [address] Care Team Providers Name Role Phone Galen Haines MD Primary Care Provider Radha Perez Primary Care Provider Encounter Details Date Type Department Care Team Description 07/08/2021 Lab Requisition [facility] Outr Resulting Lab, Pathology & Laboratory Provider [facility] [address] [place] [address] Social History Tobacco Use Types Packs/Day Years Used Date Never Assessed Sex Assigned at Date Recorded Not on file documented as of this encounter Plan of Treatment Not on filedocumented as of this encounter Procedures Procedure Name Priority Date/Time Associated Diagnosis Comme nts COVID-19 TEST [facility] Today 07/07/2021 21:33 LAB PCR EDT COVID-19 TESTING Routine 07/07/2021 21:33 Results for this EDT procedure are i n the results section. documented in this encounter Results COVID-19 TEST [facility] LAB PCR (07/07/2021 21:33 EDT) Specimen Swab - Entire nasopharynx (body structur e) Performing Organization Address City/State/ZIP Code Phon e Number [facility] [address] [place] [address] SERVICES COVID-19 TESTING (07/07/2021 21:33 EDT) COVID-19 rt-PCR Negative Negative [facility] Result Comment: [facility] This test has not been FDA c leared or approved. This test has been authorized by FDA under an EUA for use by authorized laboratories. This test has been authorized only for detection of nucleic acid fro SERVICES m 2018-nCoV, not for any oth er viruses or pathogens. This test is only authorized for the duration of the declaration that circumstances exist justifying the authorization of emergency use of in vitro d iagnostic tests for detectio n and/or diagnosis of 2019-nCoV under section 564(b)(1) of Act, 21 U.S.C ?? 360bbb-3(b) (1), unless the authorization is terminated or revoked sooner. Negative results do not prec lude 2019-nCoV infection and should not be used as the sole basis for treatment or other patient management decisions. Negative results must be combined with clinical observa tions, patient history, and epidemiological informatio n. Testing was performed using the jose SARS-CoV-2 assay ([employer] on the Jose 6800 System Performing Lab [address] [facility] Lab [facility] SERVICES Specimen Swab Performing Organization Address City/State/ZIP Code Phon e Number [facility] [address] [place] [address] SERVICES documented in this encounter Visit Diagnoses Not on filedocumented in this encounter Care Teams Editor Trade Journal Relationship Specialty Start Date End Date Galen Haines MD PCP - General 09/12/13 03/12/22 [address] [place] [phone] Radha Perez PCP - General Internal Medicine - Primary 03/13/22 [address] [place], [place] [id number] documented as of this encounter
--- OUTSIDE RECORDS SUMMARY | 2022-05-23 17:36 | XMS_ITS | Clinical Summary ---
:1940 Author Organization [facility] Address [address] [place] [address] Care Team Providers Name Role Phone Radha Perez Primary Care Provider Encounters Date Type Specialty Care Team Description 04/04/2022 Lab Requisition Clinical Laboratory Abby Anand Encounter for other M, DIRECTOR GIFT general examina tion from Last 3 Months Social History Tobacco Use Types Packs/Day Years Used Date Never Assessed Sex Assigned at Date Recorded Not on file Plan of Treatment Health Maintenance Due Date Last Done Comments COVID-19 Vaccine (#1) 1945 Fall Risk Screening 2005 Procedures Procedure Name Priority Date/Time Associated Diagnosis Comme nts SURGICAL PATHOLOGY Today 04/01/2022 15:15 Encounter for othe r Results for this EDT general examination procedur e are in the results section. from Last 3 Months Results SURGICAL PATHOLOGY (04/01/2022 15:15 EDT) Note to Patient The following [facility] MEDICAL pathology results CENTER have been interpreted LABORATORY by your pathologist SERVICES and may be available to you before your health provider has had the opportunity to review them. Please allow time for your provider to receive these results and explore management options, if applicable. Final Diagnosis A. 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 CENTER LABORATORY SERVICES Attestation By the signature [facility] MEDICAL Electronica lly below, the attending CENTER signed by Corie physician certifies LABORATORY Caren Vargas MD on that they have 1) SERVICES 04/05/2022 at 1540 personally conducted a gross and/or microscopic examination of the described specimen(s), and/or personally interpreted the results of laboratory testing of the described specimen(s), and 2) personally rendered or confirmed the above diagnosis. Clinical History Lesion mid back [facility] upper, question BCC CENTER vs [place] vs early LABORATORY cutaneous horn SERVICES Gross Description A. [facility] MEDICAL Received in formalin dionicio d with proper patient identification (initials D, N) and upper back is an elongated skin shave, 0.8 x 0.5 x 0.1 cm. The central skin surface shows a slightly raised keratot CENTER ic focus. The margin is inked. Trisected and ent irely submitted in A1. LABORATORY SERVICES MICHAEL CARABALLO(ASCP) 04/05/2022 8:19 Performing Lab [facility] LABORATORY SERVICES Scanned Images [facility] LABORATORY SERVICES Specimen Tissue - Skin (tissue) specimen (specime n) Performing Organization Address City/State/ZIP Code Phon e Number [facility] LABORATORY [address] [place] [address] SERVICES from Last 3 Months Insurance Payer Benefit Plan Subscriber ID Effective Phone Address Typ e / Group Dates BCBS BCBS [place] BLUE [id number] 2021-Pres [phone] Medicare MEDICARE ADVANTAGE 0 ent [id number] [place] [address] Peg Gao Personal/Family Self 1940 [phone] [address] (Home) [place] [address] Peg Gao Personal/Family Self 1940 [phone] (Home) [place] [address] Care Teams Pipeline Controller Relationship Specialty Start Date End Date Radha Perez PCP - General Internal Medicine - Primary 03/13/22 [address] [place] [address]
--- OUTSIDE RECORDS SUMMARY | 2022-05-23 17:36 | XMS_ITS | Encounter Summary ---
:1940 Author Organization [facility] Address [address] [place] [address] Care Team Providers Name Role Phone Radha Perez Primary Care Provider Encounter Details Date Type Department Care Team Description 04/04/2022 Lab Requisition [facility] Yasmine Anand for other Pathology & Abby Vargas APRN general examination Laboratory Medicine - [address] [place] [address] [facility] [phone] [place] [address] Social History Tobacco Use Types Packs/Day Years [...] results section. documented in this encounter Results SURGICAL PATHOLOGY (04/01/2022 15:15 EDT) Note to Patient The following [facility] MEDICAL pathology results CENTER have been interpreted LABORATORY by your pathologist SERVICES and may be available to you before your health provider has had the opportunity to review them. Please allow time for your provider to receive these results and explore management options, if applicable. Final Diagnosis A. 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 CENTER LABORATORY SERVICES Attestation By the signature [facility] MEDICAL Electronica lly below, the attending CENTER signed by Corie physician certifies LABORATORY Caren Vargas MD on that they have 1) SERVICES 04/05/2022 at 1540 personally conducted a gross and/or microscopic examination of the described specimen(s), and/or personally interpreted the results of laboratory testing of the described specimen(s), and 2) personally rendered or confirmed the above diagnosis. Clinical History Lesion mid back [facility] MED[facility] upper, question BCC CENTER vs [place] vs early LABORATORY cutaneous horn SERVICES Gross Description A. [facility] MEDICAL Received in formalin dionicio d with proper patient identification (initials D, N) and upper back is an elongated skin shave, 0.8 x 0.5 x 0.1 cm. The central skin surface shows a slightly raised keratot CENTER ic focus. The margin is inked. Trisected and ent irely submitted in A1. LABORATORY SERVICES MICHAEL CARABALLO(ASCP) 04/05/2022 8:19 Performing Lab [facility] LABORATORY SERVICES Scanned Images [facility] LABORATORY SERVICES Specimen Tissue - Skin (tissue) specimen (specime n) Performing Organization Address City/State/ZIP Code Phon e Number [facility] LABORATORY [address] [place] [address] SERVICES documented in this encounter Visit Diagnoses Diagnosis Encounter for other general examination documented in this encounter Care Teams Insurance Territory Manager Relationship Specialty Start Date End Date Radha Perez PCP - General Internal Medicine - Primary 03/13/22 [address] [place], [place] [id number] documented as of this encounter
--- OUTSIDE RECORDS SUMMARY | 2022-05-23 17:36 | XMS_ITS | Encounter Summary ---
:1940 Author Organization [facility] Address [address] [place] [address] Care Team Providers Name Role Phone Galen Haines MD Primary Care Provider Radha Perez Primary Care Provider Encounter Details Date Type Department Care Team Description 07/06/2021 Lab Requisition [facility] Outr Resulting Lab, Pathology & Laboratory Provider [facility] [address] [place] [address] Social History Tobacco Use Types Packs/Day Years Used Date Never Assessed Sex Assigned at Date Recorded Not on file documented as of this encounter Plan of Treatment Not on filedocumented as of this encounter Procedures Procedure Name Priority Date/Time Associated Diagnosis Comme nts LYME AB Routine 07/05/2021 10:50 EDT Results for this procedure are i n the results section . documented in this encounter Results LYME AB (07/05/2021 10:50 EDT) Pathologist Sig nature Lyme Ab Negative Negative [facility] LABORATOR Y SERVICES Specimen Blood - Venous blood (substance) Performing Organization Address City/State/ZIP Code Phon e Number [facility] LABORATORY [address] [place] [address] SERVICES documented in this encounter Visit Diagnoses Not on filedocumented in this encounter Care Teams Market Risk Specialist Relationship Specialty Start Date End Date Galen Haines MD PCP - General 09/12/13 03/12/[address] [place] [address] [phone] Radha Perez PCP - General Internal Medicine - Primary 03/13/22 [address] [place] [address] documented as of this encounter
--- OUTSIDE RECORDS SUMMARY | 2022-05-23 17:36 | XMS_ITS | Encounter Summary ---
:1940 Author Organization [facility] Address [address] [place] [address] Care Team Providers Name Role Phone Galen Haines MD Primary Care Provider Encounter Details Date Type Department Care Team Description 03/30/2018 Historical Results [facility] Lab - Main [facility] MD Samantha [address] [facility] [address] [place] [address] [place], [place] [phone] Social History Tobacco Use Types Packs/Day Years Used Date Never Assessed Sex Assigned at Date Recorded Not on file documented as of this encounter Plan of Treatment Not on filedocumented as of this encounter Procedures Procedure Name Priority Date/Time Associated Comments Diagnosis COMPLETE BLOOD COUNT Routine 03/30/2018 6:00 Resu lts for this WITH DIFFERENTIAL EDT procedure are in (AUTO) the results section. BASIC METABOLIC PANEL Routine 03/30/2018 6:00 Res ults for this (BMP) EDT procedure are i n the results section. documented in this encounter Results BASIC METABOLIC PANEL (BMP) (03/30/2018 6:00 EDT) BUN - [facility] 17 10 - 26 mg/dL [facility] CALCIUM - [facility] 8.8 8.5 - 10.5 [facility] mg/dL [facility] Chloride 105 96 - 110 [facility] mmol/L [facility] CO2 Total 25 22 - 32 mEq/L [facility] CREATININE 0.63 0.52 - 1.04 [facility] mg/dL [facility] eGFR >60 [facility] Comment: MED CENTER LAB Chronic renal impairment is defined as GFR <60 Multiply result by 1.210 for patients . eGFR calculated using the IDMS-traceable MDRD Study Equation. ??(effective 09/15/2014) Anion Gap 8 0 - 18 [facility] GLUCOSE - [facility] 94 70 - 100 mg/dL [facility] Potassium 4.5 3.5 - 5.0 [facility] mEq/L [facility] Sodium 138 136 - 145 [facility] mEq/L [facility] Specimen Performing Organization Address City/State/ZIP Code Phon e Number [facility] [address] [place] [address] [facility] (ABNORMAL) COMPLETE BLOOD COUNT WITH DIFFERENTIAL (AUTO) (03/30/2018 6:00 EDT) Pathologist Sig nature ABSOLUTE NEUTROPHIL 2.24 1.7 - 7.0 [facility] COUN - [facility] 10e3/ul CENTER LAB BASO # - [facility] 0.05 0.0 - 0.3 [facility] 10e3/uL [place] [facility] BASO % - [facility] 1 0 - 2 % [facility] EOS # - [facility] 0.36 0.05 - 0.5 [facility] 10e3/uL [place] [facility] EOS % - [facility] 7 (H) 0 - 5 % [facility] GRAN % - [facility] 43 40 - 80 % [facility] HEMATOCRIT - [facility] 42.2 34.0 - 47.0 % [facility] HEMOGLOBIN - [facility] 14.0 11.2 - 15.7 g/dl [facility] IG# - [facility] 0.01 0 - 0.07 10e3/uL [facility] IG% - [facility] 0.2 0 - 0.9 % [facility] LYMPH # - [facility] 1.98 0.9 - 2.9 [facility] 10e3/uL CENTER LAB LYMPH% - [facility] 38 20 - 40 % [facility] MEAN CORPUSCULAR HGB - 29.6 26 - 34 pg [facility] ME D [facility] CENTER LAB MEAN CORPUSCULAR HGB 33.2 31 - 36 g/dL [facility] CONC - [facility] CENTER LAB MEAN CELL VOLUME - 89.2 77 - 100 fl [facility] CENTER LAB MONO # - [facility] 0.56 0.3 - 0.9 [facility] 10e3/uL CENTER LAB MONO% - [facility] 11 0 - 12 % [facility] PLATELET COUNT 206 150 - 400 [facility] 10e3/ul CENTER LAB RED BLOOD COUNT - [facility] 4.73 3.8 - 5.2 [facility] D 10e6/ul CENTER LAB RED CELL DISTRI WIDTH 14.3 11.8 - 15.6 % [facility] D - [facility] CENTER LAB WHITE BLOOD COUNT - 5.2 3.5 - 10.5 [facility] 10e3/ul [place] [facility] Specimen Performing Organization Address City/State/ZIP Code Phon e Number [facility] [address] [place] [address] [facility] documented in this encounter Visit Diagnoses Not on filedocumented in this encounter Care Teams Cdl A Driver Relationship Specialty Start Date End Date Galen Haines MD PCP - General 09/12/13 03/12/22 [address] [place] [phone] documented as of this encounter
--- OUTSIDE RECORDS SUMMARY | 2022-05-23 17:37 | XMS_ITS | Encounter Summary ---
:1940 Author Organization [facility] Address [address] [place] [address] Care Team Providers Name Role Phone Galen Haines MD Primary Care Provider Encounter Details Date Type Department Care Team Description 03/28/2018 Historical Results [facility] - Sanjiv Sun MD Only [facility] Radiology Resul ts [address] [place], [place] [phone] Social History Tobacco Use Types Packs/Day Years Used Date Never Assessed Sex Assigned at Date Recorded Not on file documented as of this encounter Plan of Treatment Not on filedocumented as of this encounter Procedures Procedure Name Priority Date/Time Associated Comments Diagnosis XR LUMBAR SPINE 2-3 03/28/2018 18:48 Resu lts for this VIEWS EDT procedure are i n the results section. SPEC W/O ORDERS - [facility] Routine 03/28/2018 17:40 R esults for this EDT procedure are i n the results section. COMPLETE BLOOD COUNT Routine 03/28/2018 17:40 Res ults for this WITH DIFFERENTIAL EDT procedure are in (AUTO) the results section. COMPREHENSIVE Routine 03/28/2018 17:40 Results fo r this METABOLIC PANEL (CMP) EDT proced ure are in the results section. documented in this encounter Results XR LUMBAR SPINE 2-3 VIEWS (03/28/2018 18:48 EDT) Specimen Narrative [facility] RADIOLOGY - 03/28/2018 18:48 EDT ? EXAM: RADIOLOGY/LUMBAR SPINE 2 OR 3 VIEWS EX. D/ (1814) ? CLINICAL INFORMATION: ? LOW BACK PAIN ? EXAM: ? XR Lumbar Spine, 2 or 3 Views ? CLINICAL HISTORY: ? 77 years old, female; ?? Pain; Low back pain ? TECHNIQUE: ? Frontal and lateral views of t he lumbar spine. ? COMPARISON: ? No relevant prior studies holli labkatheryn. ? FINDINGS: ? Vertebrae: ??No acute fracture . ??Normal alignment. ? Disc spaces: ??Narrowing of th e L5-S1 disc space. ? Soft tissues: ??Unremarkable. ? Vasculature: ??Prior placement of aortic stent. ? IMPRESSION: ? 1. ??Narrowing of the L5-S1 disc space. ? 2. ??No acute fracture. ? REPORT SIGNED IN OTHER VENDOR SYSTEM 03/28/2018 ?Reported B y: Mykel Bourgeois MD ? CC: ? Transcribed Date/Time: 03/28/2018 (5788) ? Head Nurse: ? Printed Date/Time: 05/03/2019 (92 [id number]) ? PAGE 1 ? Sade d Report ? Procedure Note Mykel Bourgeois P - 09/19/2019 EXAM: RADIOLOGY/LUMBAR SPINE 2 OR 3 VIE WS EX. D/ (1815) CLINICAL INFORMATION: LOW BACK PAIN EXAM: XR Lumbar Spine, 2 or 3 Views CLINICAL HISTORY: 77 years old, female; Pain; Low back pa in TECHNIQUE: Frontal and lateral views of the lumbar spine. COMPARISON: No relevant prior studies available. FINDINGS: Vertebrae: No acute fracture. Normal al ignment. Disc spaces: Narrowing of the L5-S1 dis c space. Soft tissues: Unremarkable. Vasculature: Prior placement of aortic stent. IMPRESSION: 1. Narrowing of the L5-S1 disc space. 2. No acute fracture. REPORT SIGNED IN OTHER VENDOR SYSTEM 03/28/2018 Reported By: Mykel Bourgeois MD CC: Transcribed Date/Time: 03/28/2018 ([id number] ) Head Nurse: Printed Date/Time: 05/03/2019 (9904) PAGE 1 Signed Report Performing Organization Address City/[facility]/ZIP Code Phon e Number [facility] RADIOLOGY SPEC W/O ORDERS - [facility] (03/28/2018 17:40 EDT) SPEC W/O ORDERS - SEE NOTE [facility] Comment: MED CENTER LAB ?Emergency Room Specimen(s) without Orders These specimens will be discarded in 8 hours: Gold, green, purple and blue Specimen Performing Organization Address City/State/ZIP Code Phon e Number [facility] [address] LAB COMPREHENSIVE METABOLIC PANEL (CMP) (03/28/2018 17:40 EDT) ALBUMIN - [facility] 3.9 3.4 - 4.9 [facility] g/dL [facility] ALKALINE 109 38 - 126 U/L [facility] PHOSPHATASE [facility] BILIRUBIN TOTAL 0.3 0.2 - 1.3 [facility] mg/dL [facility] BUN - [facility] 14 10 - 26 mg/dL [facility] CALCIUM - [facility] 9.3 8.5 - 10.5 [facility] mg/dL [facility] Chloride 102 96 - 110 [facility] mmol/L [facility] CO2 Total 27 22 - 32 mEq/L [facility] CREATININE 0.62 0.52 - 1.04 [facility] mg/dL [facility] eGFR >60 [facility] Comment: MED CENTER LAB Chronic renal impairment is defined as GFR <60 Multiply result by 1.210 for patients . eGFR calculated using the IDMS-traceable MDRD Study Equation. ??(effective 09/15/2014) Anion Gap 10 0 - 18 [facility] GLUCOSE - [facility] 98 70 - [address] [facility] mg/dL [facility] Potassium 4.3 3.5 - 5.0 [facility] mEq/L [facility] Sodium 139 136 - [address] [facility] mEq/L [facility] TOTAL PROTEIN - 6.4 6.2 - 8.2 [facility] gm/dL [facility] SGOT/AST - [facility] 32 14 - 36 U/L [facility] SGPT/ALT - [facility] 47 9 - 52 U/L [facility] Specimen Narrative [facility] - 018 18:26 EDT Does PT Have a Latex Allergy? YES Performing Organization Address City/State/ZIP Code Phon e Number [facility] [address] LAB COMPLETE BLOOD COUNT WITH DIFFERENTIAL (AUTO) (03/28/2018 17:40 EDT) Pathologist Sig nature ABSOLUTE NEUTROPHIL 3.47 1.7 - 7.0 [facility] COUN - [facility] 10e3/ul CENTER LAB BASO # - [facility] 0.07 0.0 - 0.3 [facility] 10e3/uL [place] [facility] BASO % - [facility] 1 0 - 2 % [facility] EOS # - [facility] 0.22 0.05 - 0.5 [facility] 10e3/uL CENTER LAB EOS % - [facility] 3 0 - 5 % [facility] GRAN % - [facility] 52 40 - 80 % [facility] HEMATOCRIT - [facility] 44.0 34.0 - 47.0 % [facility] LAB HEMOGLOBIN - [facility] 14.7 11.2 - 15.7 g/dl [facility] IG# - [facility] 0.01 0 - 0.07 10e3/uL [facility] IG% - [facility] 0.1 0 - 0.9 % [facility] LYMPH # - [facility] 2.41 0.9 - 2.9 [facility] 10e3/uL CENTER LAB LYMPH% - [facility] 36 20 - 40 % [facility] MEAN CORPUSCULAR HGB - 29.8 26 - 34 pg [facility] D [facility] CENTER LAB MEAN CORPUSCULAR HGB 33.4 31 - 36 g/dL [facility] CONC - [facility] CENTER LAB MEAN CELL VOLUME - 89.1 77 - 100 fl [facility] CENTER LAB MONO # - [facility] 0.57 0.3 - 0.9 [facility] 10e3/uL CENTER LAB MONO% - [facility] 8 0 - 12 % [facility] LAB PLATELET COUNT 250 150 - 400 [facility] 10e3/ul [place] [facility] RED BLOOD COUNT - [facility] 4.94 3.8 - 5.2 [facility] 10e6/ul CENTER LAB RED CELL DISTRI WIDTH 14.4 11.8 - 15.6 % [facility] D - [facility] CENTER LAB WHITE BLOOD COUNT - 6.8 3.5 - 10.5 [facility] 10e3/ul [place] [facility] Specimen Narrative [facility] - 018 18:23 EDT Does PT Have a Latex Allergy? YES Performing Organization Address City/State/ZIP Code Phon e Number [facility] [address] [place] [address] [facility] documented in this encounter Visit Diagnoses Not on filedocumented in this encounter Care Teams Beading Machine Operator Relationship Specialty Start Date End Date Galen Haines MD PCP - General 09/12/13 03/12/[address] [place] [phone] documented as of this encounter
--- OUTSIDE RECORDS SUMMARY | 2022-05-23 17:37 | XMS_ITS | Encounter Summary ---
:1940 Author Organization [facility] Address [address] [place] [address] Care Team Providers Name Role Phone Galen Haines MD Primary Care Provider Encounter Details Date Type Department Care Team Description 03/29/2018 Historical Results [facility] - Heraclio Suarez MD Only [facility] Lab - Main [facility] [address] [facility] [address] [place] [address] [phone] Social History Tobacco Use Types Packs/Day Years Used Date Never Assessed Sex Assigned at Date Recorded Not on file documented as of this encounter Plan of Treatment Not on filedocumented as of this encounter Procedures Procedure Name Priority Date/Time Associated Comments Diagnosis COMPLETE BLOOD COUNT Routine 03/29/2018 6:30 Resu lts for this WITH DIFFERENTIAL EDT procedure are in (AUTO) the results section. MAGNESIUM Routine 03/29/2018 6:30 Results for this EDT procedure are i n the results section. COMPREHENSIVE Routine 03/29/2018 6:30 Results for this METABOLIC PANEL (CMP) EDT proced ure are in the results section. documented in this encounter Results MAGNESIUM (03/29/2018 6:30 EDT) Pathologist Sig nature Magnesium 2.20 1.7 - 2.8 mg/dL [facility] R LAB Specimen Performing Organization Address City/State/ZIP Code Phon e Number [facility] [address] [place] [address] [facility] (ABNORMAL) COMPREHENSIVE METABOLIC PANEL (CMP) (03/29/2018 6:30 EDT) ALBUMIN - [facility] 3.8 3.4 - 4.9 [facility] g/dL [place] [facility] ALKALINE 108 38 - 126 U/L [facility] PHOSPHATASE - [facility] BILIRUBIN TOTAL 0.3 0.2 - 1.3 [facility] mg/dL [place] [facility] BUN - [facility] 17 10 - 26 mg/dL [facility] CALCIUM - [facility] 9.3 8.5 - 10.5 [facility] mg/dL [place] [facility] Chloride 104 96 - 110 [facility] mmol/L [place] CO2 Total 26 22 - 32 mEq/L [facility] CREATININE 0.66 0.52 - 1.04 [facility] mg/dL [place] eGFR >60 [facility] Comment: [place] [facility] Chronic renal impairment is defined as GFR <60 Multiply result by 1.210 for patients . eGFR calculated using the IDMS-traceable MDRD Study Equation. ??(effective 09/15/2014) Anion Gap 10 0 - 18 [facility] GLUCOSE - [facility] 101 (H) 70 - 100 [facility] mg/dL [place] [facility] Potassium 4.2 3.5 - 5.0 [facility] mEq/L [place] [facility] Sodium 140 136 - 145 [facility] mEq/L [place] [facility] TOTAL PROTEIN - 6.0 (L) 6.2 - 8.2 [facility] gm/dL [place] [facility] SGOT/AST - [facility] 30 14 - 36 U/L [facility] SGPT/ALT - [facility] 46 9 - 52 U/L [facility] Specimen Performing Organization Address City/State/ZIP Code Phon e Number [facility] [address] [place], [place] [id number] [place] [address] LAB (ABNORMAL) COMPLETE BLOOD COUNT WITH DIFFERENTIAL (AUTO) (03/29/2018 6:30 EDT) Pathologist Sig nature ABSOLUTE NEUTROPHIL 2.69 1.7 - 7.0 [facility] COUN - [facility] 10e3/ul CENTER LAB BASO # - [facility] 0.06 0.0 - 0.3 [facility] 10e3/uL [facility]ENTER [facility] BASO % - [facility] 1 0 - 2 % [facility] EOS # - [facility] 0.31 0.05 - 0.5 [facility] 10e3/uL CENTER LAB EOS % - [facility] 6 (H) 0 - 5 % [facility] GRAN % - [facility] 48 40 - 80 % [facility] HEMATOCRIT - [facility] 44.4 34.0 - 47.0 % [facility] HEMOGLOBIN - [facility] 15.0 11.2 - 15.7 g/dl [facility] IG# - [facility] 0.01 0 - 0.07 10e3/uL [facility] IG% - [facility] 0.2 0 - 0.9 % [facility] LYMPH # - [facility] 1.96 0.9 - 2.9 [facility] 10e3/uL [place] [facility] LYMPH% - [facility] 35 20 - 40 % [facility] MEAN CORPUSCULAR HGB - 30.1 26 - 34 pg [facility] D [facility] MEAN CORPUSCULAR HGB 33.8 31 - 36 g/dL [facility] CONC - [facility] CENTER LAB MEAN CELL VOLUME - 89.2 77 - 100 fl [facility] LAB MONO # - [facility] 0.55 0.3 - 0.9 [facility] 10e3/uL [place] [facility] MONO% - [facility] 10 0 - 12 % [facility] PLATELET COUNT 241 150 - 400 [facility] 10e3/ul [place] [facility] RED BLOOD COUNT - [facility] 4.98 3.8 - 5.2 [facility] D 10e6/ul [place] [facility] RED CELL DISTRI WIDTH 14.5 11.8 - 15.6 % [facility] D - [facility] WHITE BLOOD COUNT - 5.6 3.5 - 10.5 [facility] 10e3/ul [place] [facility] Specimen Performing Organization Address City/State/[facility] Code Phon e Number [facility] [address] [place] [address] [facility] documented in this encounter Visit Diagnoses Not on filedocumented in this encounter Care Teams Topology Teacher Relationship Specialty Start Date End Date Galen Haines MD PCP - General 09/12/13 03/12/[address] [place] [phone] documented as of this encounter
--- OUTSIDE RECORDS SUMMARY | 2022-05-23 17:37 | XMS_ITS | Encounter Summary ---
:1940 Author Organization [facility] Address [address] [place] [address] Care Team Providers Name Role Phone Galen Haines MD Primary Care Provider Encounter Details Date Type Department Care Team Description 03/28/2018 Hospital Encounter [facility] - Unknown, Loni wynn [facility] [phone] [place] [address] (Work) [place] [address] Social History Tobacco Use Types Packs/Day Years Used Date Never Assessed Sex Assigned at Date Recorded Not on file documented as of this encounter Discharge Disposition Disposition Code Departure Means Destination Home or Self Custodial documented in this encounter Plan of Treatment Not on filedocumented as of this encounter Visit Diagnoses Not on filedocumented in this encounter Care Teams Key Attendant Relationship Specialty Start Date End Date Galen Haines MD PCP - General 09/12/13 03/12/22 [address] [place] [phone] documented as of this encounter
--- OUTSIDE RECORDS SUMMARY | 2022-05-23 17:37 | XMS_ITS | Encounter Summary ---
:1940 Author Organization [facility] Address [address] [place] [address] Care Team Providers Name Role Phone Unavailable Primary Care Provider Unavailable Encounter Details Date Type Department Care Team Description 01/29/2008 Before [facility] - Tabitha King, Converted Visit Mapkatheryn conversion PA (Maple) [address] [facility] [address] [place] [address] [facility] [address] [place] [address] (Wo rk) Social History Tobacco Use Types Packs/Day Years Used Date Never Assessed Sex Assigned at Date Recorded Not on file documented as of this encounter Plan of Treatment Not on filedocumented as of this encounter Visit Diagnoses Evaluation - Tabitha King MD - 08/07/2009 0124 EDT DIVISION OF DERMATOLOGY - [facility] NEW PATIENT EVALUATION - 01/29/2008 SUBJECTIVE This 67-year-old white female presents to the clinic today on initial visit for evaluation of a couple of areas on her nose that are new. The patient states that back in October, she was wearing her glasses and the nasal bridge tab actually broke off and she thinks she may have irritated her nasal bridge. A bump developed and, then, after a month or so, it actually went away and she has a hard time finding it now. She has another bump on her nose closer to her cheek that has been there for a long time. It has never scabbed, bled, changed in size, shape or color. She also has a brown spot on the tip of her nose that she feels is new as well and it has not changed in size, shape or color and never b een gritty or rough, never scabbed or bled. She has no other questions or concerns in reference to her skin. Denies any constitutional symptoms today. For complete past medical history, current medications, medication allergies, review of systems, family history and social history, please see the Dermatology Intake Sheet in the chart. OBJECTIVE On exam, this is an otherwise very pleasant 67-year-old, skin type II-III female in no apparent distress with appropriate affect and demeanor. Examination of her nose and face reveals hyperpigmented macules scattered on her nasal bridge and a few scattered on the forehead. She does have a flesh-colored, brown, well- circumscribed, approximately 3-mm, soft papule on her right nasal bridge/anterior cheek. The remainder of her exam is unremarkable. ASSESSMENT 1. Lentigines. 2. Benign-appearing nevus. PLAN Patient education and reassurance. The patient was given a handout on skin cancer. We reviewed the A, B, C, Ds of melanoma as well as nonmelanoma skin cancer. I explained to her that I did not see any evidence of any traumatic or suspicious growths on hernose and she will keep an eye on things. If anyof her brown spots change in size, shape or color, become gritty, scabs or bleeds, I would like to see her back. Otherwise, she will follow up on an as-needed basis. She showed a good understanding of the above conversation. Supervising Physician Signed by Anna Yousif MD 02/22/2008 18:01 Reviewed by Tabitha King PA-C 01/31/2008 13:39 Tabitha King PA-C Anna Yousif MD - Tabitha King PA-C - [facility] Job ID: [id number] Doc ID: [id number] cc: Steve Alcantar MD [place] 2179201/29/2008 - Tabitha King PA-C - [facility] Job ID: [id number] Doc ID: [id number] cc: Steve Alcantar MD [facility] documented in this encounter
--- OUTSIDE RECORDS SUMMARY | 2022-05-23 17:37 | XMS_ITS | CCD ---
:1940 Author Care Team Providers Name Role Phone AYDE WREN Attending Physician Unavailable Vital Signs Unknown or Not Available. Allergies Allergy Code Allergy Type Reaction Status No Known Drug Allergies 0 No known drug allergies Active LATEX 0 Allergy to substance Hives Active Procedures Unknown or Not Available. History of Immunizations Immunization Code Date Pneumococcal conjugate PCV 13 133 05/21/2015 Problems Problem Code Start Date Resolved Date Status Unspecified chest pain [id number] Activ e Results Unknown or Not Available. Active Medications Medication Code Dose Units Frequency Route Modification Start Date/Time Aspir 81 [id number] 81 MILLIGRAMS DAILY ORAL 05/21/20 15 81MG Oral 16:55 Tablet, Enteric Coated Prescription Detail TAKE 81 MILLIGRAMS ORAL WYATT Y Calcium 600/Vitamin D Oral [id number] 1 EACH DAILY ORAL 05/21/2015 16:55 Capsule Prescription Detail TAKE 1 EACH ORAL DAILY Medications Administered During Visit Unknown or Not Available. Encounters Encounter Diagnosis Diagnosis Code Start Date Mastodynia N644 04/15/2022 Social History Smoking Status Code Start Date End Date Former smoker [id number] Patient Decision Aids Unknown or Not Available. Discharge Instructions You were admitted to [facility] on 04/15/2022 10:44 with a principal diagnosis of Mastodynia You were discharged from [facility] on 04/15/2022 10:44 Should you have any questions prior to d ischarge, please contact a member of your healthcare team. If you have left the spital and have any questions, please contact your primary care physician. Chief Complaint and Reason For Visit Chief Complaint Date of Onset LT NIPPLE PAIN ONSET 1 MONTH Function Status Unknown or Not Available. Plan of Care Unknown or Not Available. Referral/Transition of Care Unknown or Not Available.
--- OUTSIDE RECORDS SUMMARY | 2022-05-23 17:37 | XMS_ITS | Encounter Summary ---
:1940 Author Organization [facility] Address [address] [place] [address] Care Team Providers Name Role Phone Galen Haines MD Primary Care Provider Encounter Details Date Type Department Care Team Description 04/24/2017 Historical Results [facility] - Cassy Evans, Only [facility] Radiology PA-C Results [address] [place] [address] [place], [place] [phone] (Wo rk) Social History Tobacco Use Types Packs/Day Years Used Date Never Assessed Sex Assigned at Date Recorded Not on file documented as of this encounter Plan of Treatment Not on filedocumented as of this encounter Procedures Procedure Name Priority Date/Time Associated Diagnosis Comme nts XR LUMBAR SPINE 04/24/2017 16:34 Results for this COMPLETE WITH EDT procedure are in FLEX/EXT AND the results OBLIQUES MIN 6 section. VIEWS XR THORACIC SPINE 2 04/24/2017 16:32 Resu lts for this VIEWS EDT procedure are i n the results section. documented in this encounter Results XR LUMBAR SPINE COMPLETE WITH FLEX/EXT AND OBLIQUES MIN 6 VIEWS (04/24/2017 16:34 EDT) Specimen Narrative [facility] - 04/24/2017 16:37 EDT ? EXAM: RADIOLOGY EXPRESS CARE/EXP CARE LUM EX. D/ (1630) ? CLINICAL INFORMATION: ? M54.5 ACUTE LEFT SIDED LOW BACK P AIN WITHOUT SCIATICA ? INDICATION: ??: M54.5 ACUTE LEFT SIDED LOW BACK PAIN WITHOUT SCIATICA. ? COMPARISON: None. ? TECHNIQUE: AP, lateral neutral an d lateral flexion and extension ? views were obtained. ? FINDINGS: The bones are osteopeni c. Degenerative disc disease and ? facet arthrosis is present throug hout the lumbar spine. The findings ? are most severe at L5-S1. No frac ture or subluxation is identified. ? An aortoiliac endoluminal stent g raft is present. There are mild ? degenerative changes within the s acroiliac joints. ? IMPRESSION: ? 1. Degenerative spondylosis of th e lumbar spine. ? 2. Aortoiliac endoluminal stent g raft. ? REPORT SIGNED IN OTHER VENDOR SYSTEM 04/24/2017 ?Reported B y: Tomy Irene MD ? CC: ? Transcribed Date/Time: 04/24/2017 (2787) ? Clinical Account Manager: ? Printed Date/Time: 04/29/2019 (15 34) ? PAGE 1 ? Sade d Report ? Procedure Note Tomy Irene MD - 09/18/2019 EXAM: RADIOLOGY EXPRESS CARE/EXP CARE L EX. D/ (4890) CLINICAL INFORMATION: M54.5 ACUTE LEFT SIDED LOW BACK PAIN WI THOUT SCIATICA INDICATION: : M54.5 ACUTE LEFT SIDED LO W BACK PAIN WITHOUT SCIATICA. COMPARISON: None. TECHNIQUE: AP, lateral neutral and late ral flexion and extension views were obtained. FINDINGS: The bones are osteopenic. Deg enerative disc disease and facet arthrosis is present throughout t he lumbar spine. The findings are most severe at L5-S1. No fracture o r subluxation is identified. An aortoiliac endoluminal stent graft i s present. There are mild degenerative changes within the sacroil iac joints. IMPRESSION: 1. Degenerative spondylosis of the lumb ar spine. 2. Aortoiliac endoluminal stent graft. REPORT SIGNED IN OTHER VENDOR SYSTEM 04/24/2017 Reported By: Tomy Irene MD CC: Transcribed Date/Time: 04/24/2017 (2168 ) Clinical Account Manager: Printed Date/Time: 04/29/2019 (2432) PAGE 1 Signed Report Performing Organization Address City/State/ZIP Code Phon e Number [facility] XR THORACIC SPINE 2 VIEWS (04/24/2017 16:32 EDT) Specimen Narrative [facility] - 04/24/2017 16:35 EDT ? EXAM: RADIOLOGY EXPRESS CARE/EXP CARE THO EX. D/ (8790) ? CLINICAL INFORMATION: ? M54.5 ACUTE LEFT SIDED LOW BACK P AIN WITHOUT SCIATICA ? INDICATION: M54.5 ACUTE LEFT SIDE D LOW BACK PAIN WITHOUT SCIATICA. ? COMPARISON: None. ? TECHNIQUE: AP, lateral swimmer's and lateral views of the thoracic ? spine were obtained. ? FINDINGS: ? There is a mild scoliosis of the thoracic spine, apex to the right ? centered at T6. Mild degenerative disc disease is present within the ? lower cervical and the thoracic s pine. Bone density is slightly ? diminished. No fracture or sublux ation is identified. There is an ? endoluminal stent graft within th e abdominal aorta. ? IMPRESSION: ? 1. Mild degenerative spondylosis of the thoracic spine. ? 2. Mild scoliosis of the thoracic spine. ? 3. Osteopenia. ? REPORT SIGNED IN OTHER VENDOR SYSTEM 04/24/2017 ?Reported B y: Tomy Irene MD ? CC: ? Transcribed Date/Time: 04/24/2017 (2905) ? Clinical Account Manager: ? Printed Date/Time: 04/29/2019 (72 70) ? PAGE 1 ? Sade d Report ? Procedure Note Tomy Irene MD - 09/18/2019 EXAM: RADIOLOGY EXPRESS CARE/EXP CARE T HO EX. D/ (1630) CLINICAL INFORMATION: M54.5 ACUTE LEFT SIDED LOW BACK PAIN WI THOUT SCIATICA INDICATION: M54.5 ACUTE LEFT SIDED LOW BACK PAIN WITHOUT SCIATICA. COMPARISON: None. TECHNIQUE: AP, lateral swimmer's and la teral views of the thoracic spine were obtained. FINDINGS: There is a mild scoliosis of the thorac ic spine, apex to the right centered at T6. Mild degenerative disc disease is present within the lower cervical and the thoracic spine. Bone density is slightly diminished. No fracture or subluxation is identified. There is an endoluminal stent graft within the abdo leona aorta. IMPRESSION: 1. Mild degenerative spondylosis of the thoracic spine. 2. Mild scoliosis of the thoracic spine . 3. Osteopenia. REPORT SIGNED IN OTHER VENDOR SYSTEM 04/24/2017 Reported By: Tomy Ireen MD CC: Transcribed Date/Time: 04/24/2017 (0210 ) Clinical Account Manager: Printed Date/Time: 04/29/2019 (1534) PAGE 1 Signed Report Performing Organization Address City/State/ZIP Code Phon e Number [facility] documented in this encounter Visit Diagnoses Not on filedocumented in this encounter Care Teams Learning Coordinator Relationship Specialty Start Date End Date Galen Haines MD PCP - General 09/12/13 03/12/22 [address] [place] [phone] documented as of this encounter
--- OUTSIDE RECORDS SUMMARY | 2022-05-23 17:37 | XMS_ITS | Encounter Summary ---
:1940 Author Organization [facility] Address [address] [place] [address] Care Team Providers Name Role Phone Galen Haines MD Primary Care Provider Encounter Details Date Type Department Care Team Description 07/13/2016 Hospital Encounter [facility] - Unknown, Loni wynn [facility] [phone] [place] [address] (Work) [place] [address] Social History Tobacco Use Types Packs/Day Years Used Date Never Assessed Sex Assigned at Date Recorded Not on file documented as of this encounter Discharge Disposition Disposition Code Departure Means Destination Home or Self Senior Living documented in this encounter Plan of Treatment Not on filedocumented as of this encounter Visit Diagnoses Not on filedocumented in this encounter Care Teams Ecommerce Marketing Specialist Relationship Specialty Start Date End Date Galen Haines MD PCP - General 09/12/13 03/12/22 [address] [place] [phone] documented as of this encounter
--- OUTSIDE RECORDS SUMMARY | 2022-05-23 17:37 | XMS_ITS | CCD ---
:1940 Author Care Team Providers Name Role Phone CHARLES DOMÍNGUEZ NP Attending Physician Unavailable Vital Signs Unknown or Not Available. Allergies Allergy Code Allergy Type Reaction Status No Known Drug Allergies 0 No known drug allergies Active LATEX 0 Allergy to substance Hives Active Procedures Unknown or Not Available. History of Immunizations Immunization Code Date Pneumococcal conjugate PCV 13 133 05/21/2015 Problems Problem Code Start Date Resolved Date Status Unspecified chest pain [id number] Activ e Results Unknown or Not Available. Active Medications Medication Code Dose Units Frequency Route Modification Start Date/Time Aspir 81 36757945446 81 MILLIGRAMS DAILY ORAL 05/21/20 15 81MG Oral 16:55 Tablet, Enteric Coated Prescription Detail TAKE 81 MILLIGRAMS ORAL WYATT Y Calcium 600/Vitamin D Oral 0753735 1 EACH DAILY ORAL 05/21/2015 16:55 Capsule Prescription Detail TAKE 1 EACH ORAL DAILY Medications Administered During Visit Unknown or Not Available. Encounters Encounter Diagnosis Diagnosis Code Start Date Idiopathic osteoarthritis [id number] 05/20/2021 Social History Smoking Status Code Start Date End Date Former smoker [id number] Patient Decision Aids Unknown or Not Available. Discharge Instructions You were admitted to [facility] on 05/20/2021 14:36 with a principal diagnosis of Primary osteoarthritis, rig ht shoulder You were discharged from [facility] on 05/20/2021 14:36 Should you have any questions prior to d ischarge, please contact a member of your healthcare team. If you have left the ho spital and have any questions, please contact your primary care physician. Chief Complaint and Reason For Visit Unknown or Not Available. Function Status Unknown or Not Available. Plan of Care Unknown or Not Available. Referral/Transition of Care Unknown or Not Available.
--- OUTSIDE RECORDS SUMMARY | 2022-05-23 17:37 | XMS_ITS | Encounter Summary ---
:1940 Author Organization [facility] Address [address] [place] [address] Care Team Providers Name Role Phone Galen Haines MD Primary Care Provider Encounter Details Date Type Department Care Team Description 07/13/2016 Historical Results [facility] [place]patrick, Only [facility] [place] [address] [place] [address] [place], [place] [phone] Social History Tobacco Use Types Packs/Day Years Used Date Never Assessed Sex Assigned at Date Recorded Not on file documented as of this encounter Plan of Treatment Not on filedocumented as of this encounter Procedures Procedure Name Priority Date/Time Associated Diagnosis Comme nts CT ABDOMEN PELVIS W 07/13/2016 15:49 Resu lts for this CONTRAST EDT procedure are i n the results section. documented in this encounter Results CT ABDOMEN PELVIS W CONTRAST (07/13/2016 15:49 EDT) Specimen Narrative [facility] - 07/13/2016 15:57 EDT ? EXAM: CAT SCAN/ABDOMEN PELVIS WITH CONTRA EX. D/ (1536) ? CLINICAL INFORMATION: ? ABD PAIN ? INDICATION: ABD PAIN. ? COMPARISON: None. ? TECHNIQUE: CT scan of the abdomen and pelvis was performed with ? nonionic IV contrast. 100 mL of O mnipaque 350 was utilized.. ? FINDINGS: ? There are numerous diverticuli wi thin the descending and sigmoid ? colon. There is hazy density and stranding of the fat adjacent to the ? mid to distal sigmoid colon and s urrounding a sigmoid diverticulum, ? consistent with acute diverticuli tis. No perforation is identified. ? No ascites or abscess is seen. ? The urinary bladder is unremarkab le. The appendix is not visualized ? although I see no evidence of acu te appendicitis. The kidneys, ? adrenal glands, spleen, pancreas, gallbladder and liver are ? unremarkable. An aortoiliac iliac endoluminal stent graft is present. ? No endoleak is identified. Minima l bibasilar linear atelectasis ? and/or scar is present. There are degenerative changes within the ? lumbar spine. ? IMPRESSION: ? 1. Mild sigmoid diverticulitis. ? 2. Aortoiliac iliac endoluminal s tent graft without evidence of ? endoleak. ? REPORT SIGNED IN OTHER VENDOR SYSTEM 07/13/2016 ?Reported B y: Tomy Irene MD ? CC: ? Transcribed Date/Time: 07/13/2016 (1557) ? Tube Building Machine Operator: ? Printed Date/Time: 04/26/2019 (14 28) ? PAGE 1 ? Sade d Report ? Procedure Note Tomy Irene MD - 09/18/2019 EXAM: CAT SCAN/ABDOMEN PELVIS WITH CONT RA EX. D/ (1536) CLINICAL INFORMATION: ABD PAIN INDICATION: ABD PAIN. COMPARISON: None. TECHNIQUE: CT scan of the abdomen and p mia was performed with nonionic IV contrast. 100 mL of Omnipaq ue 350 was utilized.. FINDINGS: There are numerous diverticuli within t he descending and sigmoid colon. There is hazy density and strand ing of the fat adjacent to the mid to distal sigmoid colon and surroun ding a sigmoid diverticulum, consistent with acute diverticulitis. N o perforation is identified. No ascites or abscess is seen. The urinary bladder is unremarkable. Th e appendix is not visualized although I see no evidence of acute zak endicitis. The kidneys, adrenal glands, spleen, pancreas, gallb ladder and liver are unremarkable. An aortoiliac iliac endol uminal stent graft is present. No endoleak is identified. Minimal biba silar linear atelectasis and/or scar is present. There are degen erative changes within the lumbar spine. IMPRESSION: 1. Mild sigmoid diverticulitis. 2. Aortoiliac iliac endoluminal stent g raft without evidence of endoleak. REPORT SIGNED IN OTHER VENDOR SYSTEM 07/13/2016 Reported By: Tomy Irene MD CC: Transcribed Date/Time: 07/13/2016 (7583 ) Tube Building Machine Operator: Printed Date/Time: 04/26/2019 (9678) PAGE 1 Signed Report Performing Organization Address City/State/ZIP Code Phon e Number [facility] documented in this encounter Visit Diagnoses Not on filedocumented in this encounter Care Teams Car Rental Agency Manager Relationship Specialty Start Date End Date Galen Haines MD PCP - General 09/12/13 03/12/[address] [place] [phone] documented as of this encounter
--- OUTSIDE RECORDS SUMMARY | 2022-05-23 17:37 | XMS_ITS | Encounter Summary ---
:1940 Author Organization [facility] Address [address] [place] [address] Care Team Providers Name Role Phone Unavailable Primary Care Provider Unavailable Encounter Details Date Type Department Care Team Description 09/04/2013 Hospital Encounter [facility] - S Unknown, Pro Erik mckeon MD 1 [facility] [phone] [place] [address] (Work) [phone] Social History Tobacco Use Types Packs/Day Years Used Date Never Assessed Sex Assigned at Date Recorded Not on file documented as of this encounter Discharge Disposition Disposition Code Departure Means Destination Home or Self [facility] documented in this encounter Plan of Treatment Not on filedocumented as of this encounter Visit Diagnoses Not on filedocumented in this encounter
[2022-05-23 20:42] LABS: Anion Gap 10.7 mmol/L (3-11); BUN 15 mg/dL (7-18); CO2 29.3 mmol/L (21.0-32.0); CREATININE 0.7 mg/dL (0.55-1.02); Calcium 8.7 mg/dL (8.5-10.1); Chloride 103 mmol/L (98-107); Glucose 104 mg/dL (74-106); Sodium 143 mmol/L (136-145)
== END 2022-05-23 17:32 | disposition home or self-care (01) ==
LOC: NCHCN 17:31
PROVIDERS: PCP Internal Medicine; Visit Provider Nurse Practitioner Family
DX: U07.1 COVID-19 (principal)
CPT/HCPCS: 80048

== ENCOUNTER 2022-09-19 07:18 | Day surgery (SDC) | payer MEDICARE, SELFPAY ==
[2022-09-19 07:25] VITALS: BP 174/79; PULSE 72; RESP 16; TEMP 36.3; O2SAT 96
[2022-09-19] MEDS: Tropicam./Phenyleph. (1/2.5%) 5 ML BTL OS ×3 (08:03→08:18)
[2022-09-19 08:15] VITALS: BP 163/83; PULSE 70
[2022-09-19 08:20] VITALS: BMI 27.0
--- NOTE | 2022-09-19 08:20 | W.ANESPRE ---
General Info Date of Service Date Performed: 09/19/22 Height: 4 ft 11.75 in Weight: 62.3 kg Body Mass Index (BMI): 27.0 Surgical Procedure: Operation Date: 09/19/22 09:40 Proposed Procedure Side Surgeon p Cataract Extraction with IOL Implant Left Shaun Mohan MD Meds Allergies and Home Medications Allergies Allergy/AdvReac Type Severity Reaction Status Date / Time latex Allergy Intermediate Skin Rash Unverified 09/19/22 07:57 Home Medication Medication Instructions Recorded aspirin 81 mg tablet,delayed 81 mg PO DAILY 07/07/21 release fluticasone propionate 50 1 spray intranasal BID 07/07/21 mcg/actuation nasal spray,suspension rosuvastatin 40 mg tablet 40 mg PO DAILY 07/07/21 simvastatin 10 mg tablet 10 mg PO QHS 07/07/21 valacyclovir 500 mg tablet 500 mg PO BID PRN 07/07/21 (Valtrex) Current Visit Medications: Current Medications Generic Name Dose Route Start Last Admin Trade Name Freq PRN Reason Stop Dose Admin Acetaminophen 1,000 mg 09/19/22 06:00 Acetaminophen 500 Mg Tab PO Q4H PRN PRN Miscellaneous Medication 0 ml 09/19/22 06:00 Prednisolone 1%, Moxifloxacin 0.5%, Nepafenac 0.1% 5ml Btl OS DIRECTED RUBY Miscellaneous Medication 0 ml 09/19/22 06:00 09/19/22 08:18 Tropicam./Phenyleph. (1/2.5%) 5 Ml Btl OS 1 drp DIRECTED RUBY Administration Tetracaine HCl 0 ml 09/19/22 06:00 Tetracaine 0.5% 4 Ml Btl OS DIRECTED RUBY PFSH Active Problems Active Problems: Problem Status Onset Code Nasal congestion R09.81 Dry both ear canals H61.893 Chest pressure R07.89 Nuclear sclerotic cataract of left eye H25.12 Posterior subcapsular age-related cataract of left eye H25.042 Medical History Medical History ASCVD (arteriosclerotic cardiovascular disease) Cervical spondylolysis Essential hypertension Herpes zoster High cholesterol History of diverticulitis Low back pain Mastalgia Myalgia Nocturnal leg cramps Pre-diabetes Rhinitis Sacroiliitis Slow transit constipation Surgical History Surgical History History of bladder surgery History of cataract surgery History of partial hysterectomy History of repair of aneurysm of abdominal aorta History of surgery Cardiac stents Tobacco Smoking/Tobacco Use Status: Former Tobacco Use Alcohol Alcohol Intake: never Substance Use Substance use type: does not use Vital Signs and Lab Results Vital Signs Most Recent Vital Signs in EMR: Most Recent Vital Signs Temp Pulse Resp BP Pulse Ox 36.3 C L 72 16 174/79 H 96 09/19/22 07:25 09/19/22 07:25 09/19/22 07:25 09/19/22 07:25 09/19/22 07:25 Lab Results Blood Type / Crossmatch: No Data to Display Complete Blood Count: No Data to Display Complete Metabolic Panel: No Data to Display Liver Function Panel: No Data to Display Coagulation Panel: No Data to Display Cardiac Panel: No Data to Display Arterial Blood Gas: No Data to Display Venous Blood Gas: No Data to Display Pancreas Panel: No Data to Display Thyroid Panel: No Data to Display Infectious Disease: No Data to Display Blood Cultures: No Data to Display Toxicology Panel: No Data to Display Anesthesia Assessment and Plan Anesthesia History Personal History: No History of Anesthesia Complications Family History: No Family History of Anesthesia Complications Exercise Tolerance Exercise Tolerance: Metabolic Equivalents>4 Pertinent Negatives Pertinent Negatives: No Symptoms of GERD, No Major Pulmonary Symptoms or Complaints and No History of CVA/TIA Cardiac & Pulmonary Exam Cardiac Exam: Normal S1/S2 Heart Sounds Pulmonary Exam: Clear Bilateral Breath Sounds Implantable Cardiac Device Does patient have a Pacemaker or an ICD?: No Airway Exam Known Difficult Airway: No Mallampati Class: 2 Mouth Opening: Normal (> 3cm) Thyromental Distance: Greater than 3 cm Neck Range of Motion: Full ROM Neck Circumference: Normal Teeth Condition: Removable Dentures/Plates Upper and Removable Dentures/Plates Lower ASA Classification ASA Score: ASA 3 Emergency Case?: No NPO Status NPO Status: NPO Clears >2 hours, Solids >8 hours Anesthesia Plan Resuscitation Status: Full Code Anesthesia Technique: MAC Anesthesia Airway Planned: Natural Airway Monitors Used: Standard Monitors Preoperative Comments:: Patient with AMIx2 in early . Patient reports being stented but denied following up with cardiology postintervention. She reported that she felt better and didnt see a need to. I discussed importance of custodial care and followup and educated to signs and symptoms when to seek care.
[2022-09-19] MEDS: Balanced Salt Soln.-PLUS 500 ML BAG (09:06)
[2022-09-19] MEDS: Tetracaine 0.5% 4 ML BTL OS (09:06)
[2022-09-19] MEDS: Duovisc Viscoelastic System EACH 1 EACH (09:07)
[2022-09-19] MEDS: Lidocaine 2% Jelly 6 ML SYR (09:08)
[2022-09-19] MEDS: Povidone-Iodine Ophth 30 ML BTL (09:09)
[2022-09-19] MEDS: Lidocaine 1% Pres-Free 5 ML VIAL (09:09)
[2022-09-19 09:24] VITALS: BP 150/79; PULSE 73; RESP 16; TEMP 36.1; O2SAT 97
--- NOTE | 2022-09-19 09:24 | PDOC.DSDIS_ITS ---
Date of service: 09/19/22 Time of Service: 09:24 Discharge Plan Disposition Patient Disposition: HOME Condition: Good Discharge Details Attending Provider: Shaun Mohan Primary Care Provider: Radha Perez Home Meds and New Rx's Prescriptions: No Action simvastatin 10 mg Tablet 10 mg PO QHS valacyclovir [Valtrex] 500 mg Tablet 500 mg PO BID PRN aspirin 81 mg Tablet,Delayed Release (Dr/Ec) 81 mg PO DAILY fluticasone propionate 50 mcg/actuation [place],Suspension 1 spray INTRANASAL BID rosuvastatin 40 mg Tablet 40 mg PO DAILY Discharge Instructions Stand Alone Forms: Post-op Topical Cataract, Sally Forbes (DSU) Discharge Orders Discharge Orders: Discharge Order (Routine); Ordered 09/19/22 Ordered By: Shaun Mohan DS: Diagnosis Discharge Diagnosis (1) Nuclear sclerotic cataract of left eye: Status: Resolved (2) Posterior subcapsular age-related cataract of left eye: Status: Resolved
--- NOTE | 2022-09-19 09:25 | W.PM.OP ---
Date of service: 09/19/22 Time of Service: 09:25 Operative Note Operative Note DATE OF PROCEDURE: 09/19/22 PRE-OP DIAGNOSIS: Nuclear/posterior subcapsular cataract, left eye POST-OP DIAGNOSIS: same PROCEDURE: Cataract extraction using phacoemulsification with intraocular lens implant, left eye SURGEON: Shaun Mohan ANESTHESIA TYPE: Local By Surgeon and MAC Refer to Anesthesia Record PATHOLOGY: none sent COMPLICATIONS: None Patient was transported to: same day Patient's condition: stable Implants: [employer] Tecnis [id number] Indications: Progressive decreased vision due to cataract, left eye Procedure Description: CATARACT SURGERY OPERATIVE REPORT PREOPERATIVE DIAGNOSIS: 1. Nuclear/posterior subcapsular cataract, left eye POSTOPERATIVE DIAGNOSIS: Same OPERATION: 1. Cataract extraction using phacoemulsification with posterior chamber intraocular lens implant, left eye. IOL: IOL Instructor Adjunct Pharmacy Technician/Model: [employer] Werner / PILAR Tecnis [id number] IOL Power: + 21.0 diopters IOL Serial Number: [id number] Optic Diameter: 6.0 mm Haptic/Overall Diameter: 13.0 mm PHACO INFO: Janes Klee Data Systemurion Vision System with OZil and Active Fluidics Cumulative Dispersed Energy (CDE): 10.23 seconds SURGEON: Shaun Mohan MD, ELLA ANESTHESIA: Monitored A [facility] (MAC), with local sub-tenon's anesthetic infiltration COMPLICATIONS: None SPECIMENS: None INDICATIONS FOR PROCEDURE: The patient is a 81-year-old lady with history of diminished visual acuity in her left eye secondary to the development of nuclear/posterior subcapsular cataract. She is significantly symptomatic that she desires cataract surgery and attempt to improve and maximize her vision. The option of cataract surgery was offered to the patient and she wished to proceed PROCEDURE: The correct surgical eye was identified and marked as the left eye and the pupil was dilated in the preoperative area using mydriatics and cycloplegics. The dilated pupil size was 7.0 mm. Oral sedation was administered in the form of an Imprimis MKO Melt (midazolam 3mg/ketamine 25mg/ondansetron 2mg). The patient was brought to the operating room where cardiopulmonary monitoring was instituted and surgical time-out was performed, confirming the correct operative eye and IOL power. Topical anesthesia was administered and ophthalmic povidone-iodine 5% was instilled into the conjunctival fornices. Lidocaine gel was applied to the cornea and the jewels-ocular area was prepped with Betadine 10% solution and draped in the usual sterile fashion for intraocular surgery, including an aperture drape. A Tegaderm transparent film dressing was cut in half and used to cover the lashes and lid margins. Care was taken to sequester the lashes and lid margins under the Tegaderm dressing. A lid speculum was placed between the lids of the operative eye and the Janes LuxOR Revalia operating microscope was maneuvered into position. Jaret scissors were then used to make a conjunctival buttonhole approximately 6mm posterior to the limbus in the inferonasal quadrant. Blunt dissection was carried out to expose bare sclera, and a blunt-tipped sub-tenon?s anesthesia cannula was introduced and passed posteriorly along the globe where non-preserved plain lidocaine was injected into posterior sub-Tenon?s space. A sideport knife was used to make a paracentesis port superiorly/superiortemporally. The anterior chamber was filled with viscoelastic. A keratome knife was used to construct a 2-plane near-clear corneal tunnel extending 2.0mm into clear cornea temporally. A flap was raised on the anterior capsule and capsulorhexis forceps were used to complete a continuous curvilinear capsulorhexis of 5.5 mm. Balanced salt solution was then used to perform cortical cleaving hydrodissection and nuclear hydrodelineation until the lens could be freely rotated within the capsular bag. The lens nucleus was then disassembled and removed within the capsular bag and iris plane using phacoemulsification. Residual cortical material was removed using the 45-degree angled silicone I/A tip with 0.3mm port. The posterior capsule was carefully polished to remove as much residual lens epithelial cells as safely possible. The capsular bag was then inflated and the anterior chamber deepened with viscoelastic. The lens implant described above was inserted into the capsular bag using the PILAR Currie Injector. A Kuglen hook was used to dial the IOL into position. Residual viscoelastic was then removed first from posterior to the IOL, then from the anterior chamber using the I/A handpiece. The lens implant was noted to center nicely within the capsular bag. The incisions were stromally hydrated, and the anterior chamber was reformed using BSS. Then 0.5cc of moxifloxacin 1.0mg/ml were injected into the capsular bag and anterior chamber. The incisions were checked with a Weck spear and found to be secure. Several drops of ophthalmic povidone-iodine 5% were then applied to the eye followed by two drops of Imprimis combination prednisolone/moxifloxacin/nepafenac solution. The drapes were removed and a clear plastic protective eye shield was placed over the eye. The patient was then returned to Same Day Surgery in stable condition.
--- NOTE | 2022-09-19 09:38 | W.ANESPOSTOP ---
Postoperative Evaluation Date, Time and Location Date Performed: 09/19/22 Time Performed: 09:26 Patient Location: Day Surgery Unit Vital Signs Most Recent Imported Vital Signs: Most Recent Vital Signs Temp Pulse Resp BP Pulse Ox 36.1 C L 73 16 150/79 H 97 09/19/22 09:24 09/19/22 09:24 09/19/22 09:24 09/19/22 09:24 09/19/22 09:24 Pain Score Most Recent Pain Score: Most Recent Pain Score Pain Level 0 09/19/22 09:24 Assessment Mental Status: Awake (Alert & Oriented to Patient Baseline) Airway and Respiratory Function: Patent airway with normal (patient baseline) respiratory exam Cardiovascular Function: Hemodynamically Stable Hydration Status: Adequately Hydrated Nausea & Vomiting: No Nausea or Vomiting Pain: Pt. Denies Any Pain Peripheral Nerve Block: Other (Local by Dr. Mohan)
[2022-09-19 09:45] VITALS: BP 149/75; PULSE 70; RESP 16; TEMP 36; O2SAT 97
== END 2022-09-19 09:48 | disposition home or self-care (01) ==
LOC: SUR 07:20
PROVIDERS: PCP Internal Medicine; Visit Provider Ophthalmology
PROC: (CPT 66984; principal; 2022-09-19 09:30)
DX: H25.042 Posterior subcapsular polar age-related cataract, left eye (principal)
CPT/HCPCS: 66984; V2632

== ENCOUNTER 2023-07-19 10:15 | Outpatient (REF) | payer MEDICARE, SELFPAY ==
[2023-07-19 15:52] LABS: Anion Gap 8.7 mmol/L (3-11); BUN 15 mg/dL (7-18); CO2 26.3 mmol/L (21.0-32.0); CREATININE 0.8 mg/dL (0.55-1.02); Calcium 9.6 mg/dL (8.5-10.1); Chloride 102 mmol/L (98-107); Estimated GFR 73.52 (mL/min/1.73m2); Glucose 106 mg/dL (74-106); Potassium 4.1 mmol/L (3.5-5.1); Sodium 137 mmol/L (136-145)
== END 2023-07-19 10:16 | disposition home or self-care (01) ==
LOC: NCHCN 10:15
PROVIDERS: PCP Internal Medicine; Visit Provider Internal Medicine
DX: I10 Essential (primary) hypertension (principal); R73.03 Prediabetes
CPT/HCPCS: 80048; 83036

== ENCOUNTER 2023-08-14 10:05 | Outpatient (REF) | payer MEDICARE, SELFPAY ==
--- NOTE | 2023-08-14 09:00 | SKI_PTH ---
PATIENT: Peg Gao LOC: [facility] U#:[id number] AGE/SX: 82/F ROOM: RE08/14/[address]: Radha Perez : 1940 BED: DIS: 08/14/2023 SPEC #: [id number] RECD: 08/14/23 17:06 STATUS: VAISHALI DHILLON #: [id number] SUZANNE: 08/14/23 09:[address]: Radha Perez DEPT: Surgical Specimen RECD BY: Barb Mendoza Tissues: 1 - SKIN BIOPSY(SHAVE/PUNCH) Procedures: SKIN LEVEL 4 Comments: [id number]
== END 2023-08-14 10:06 | disposition home or self-care (01) ==
LOC: NCHCN 10:05
PROVIDERS: PCP Internal Medicine; Visit Provider Internal Medicine
DX: L82.0 Inflamed seborrheic keratosis (principal)
CPT/HCPCS: 88305

== ENCOUNTER 2024-06-17 16:10 | Outpatient (REF) | payer MEDICARE, SELFPAY ==
[2024-06-17 21:38] LABS: ALT 17 U/L (14-59); AST 17 U/L (15-37); Albumin 3.2 g/dL (3.4-5.0); Alkaline Phosphatase 86 U/L (46-116); Anion Gap 9.7 mmol/L (3-11); BUN 17 mg/dL (7-18); Bilirubin, Total 0.29 mg/dL (0.2-1.0); CO2 25.3 mmol/L (21.0-32.0); CREATININE 0.9 mg/dL (0.55-1.02); Calcium 8.6 mg/dL (8.5-10.1); Chloride 104 mmol/L (98-107); Estimated GFR 63.43 (mL/min/1.73m2); Glucose 138 mg/dL (74-106); Potassium 4.1 mmol/L (3.5-5.1); Sodium 139 mmol/L (136-145); TSH 1.06 uIU/Ml (0.36-3.74); Total Protein 6.9 g/dL (6.4-8.2)
== END 2024-06-17 16:11 | disposition home or self-care (01) ==
LOC: NCHCN 16:10
PROVIDERS: PCP Internal Medicine; Visit Provider Internal Medicine
DX: R10.9 Unspecified abdominal pain (principal); I10 Essential (primary) hypertension; R73.03 Prediabetes
CPT/HCPCS: 80053; 84443; 85025

== ENCOUNTER 2024-07-10 10:51 | Outpatient (REF) | payer MEDICARE, SELFPAY ==
[2024-07-10 14:37] LABS: Abs Immature Grans 0.02 10^3/uL (0.0-0.06); Absolute Basophil Count 0.08 10^3/uL (0.0-0.2); Absolute Eosinophil Count 0.11 10^3/uL (0.0-0.7); Absolute Lymphocyte Count 2.15 10^3/uL (1.2-3.4); Absolute Monocyte Count 0.57 10^3/uL (0.1-0.8); Absolute Neutrophil Count 5.08 10^3/uL (1.2-6.7); Eosinophils % 1.4 %; HCT 44.1 % (36.0-46.0); HGB 14.6 g/dL (11.2-15.7); Immature Grans % 0.2 %; Lymphocytes % 26.8 %; MCHC 33.1 % (32.0-36.0); MCV 88 fL (80-95); Monocytes % 7.1 %; Neutrophils % 63.5 %; Platelet Count 262 10^3/uL (130-400); RBC 5.03 10^6/uL (3.93-5.22); RDW 14.6 % (11.7-14.6); RDW-SD 46.8 fL; WBC 8.01 10^3/uL (4.4-10.8)
[2024-07-10 14:52] LABS: ALT 13 U/L (14-59); AST 20 U/L (15-37); Albumin 3.4 g/dL (3.4-5.0); Alkaline Phosphatase 94 U/L (46-116); Anion Gap 5.7 mmol/L (3-11); BUN 15 mg/dL (7-18); Bilirubin, Total 0.27 mg/dL (0.2-1.0); CO2 29.3 mmol/L (21.0-32.0); CREATININE 0.8 mg/dL (0.55-1.02); Calcium 9.2 mg/dL (8.5-10.1); Chloride 105 mmol/L (98-107); Estimated GFR 73.06 (mL/min/1.73m2); Glucose 165 mg/dL (74-106); Lipase 23 U/L (16-77); Potassium 4.5 mmol/L (3.5-5.1); Sodium 140 mmol/L (136-145); Total Protein 7.3 g/dL (6.4-8.2)
== END 2024-07-10 10:52 | disposition home or self-care (01) ==
LOC: NCHCN 10:51
PROVIDERS: PCP Internal Medicine; Visit Provider Physician Assistant
DX: R10.9 Unspecified abdominal pain (principal)
CPT/HCPCS: 80053; 83690; 85025

== ENCOUNTER 2024-09-23 13:27 | Outpatient (REF) | payer MEDICARE, SELFPAY ==
[2024-09-23 15:52] LABS: Vitamin D 25 Total 37.9 ng/mL (30-100)
== END 2024-09-23 13:28 | disposition home or self-care (01) ==
LOC: NCHCN 13:27
PROVIDERS: PCP Internal Medicine; Visit Provider Internal Medicine
DX: M81.0 Age-related osteoporosis without current pathological fracture (principal)
CPT/HCPCS: 82306